=== PATIENT | female | born 1930 | race Caucasian/White ===

== ENCOUNTER 2016-12-25 11:25 | Observation (INO) ==
[2016-12-25] MEDS ORDERED: Aspirin 81 MG TAB.CHEW PO ONE (11:49)
--- NOTE | 2016-12-25 11:49 | Emergency Department Note ---
Disposition Clinical Impression: Atypical chest pain CHF (congestive heart failure) Qualifiers: Congestive heart failure type: unspecified congestive heart failure type Congestive heart failure chronicity: acute on chronic Qualified Code(s): I50.9 - Heart failure, unspecified Disposition: Admitted As Inpatient Condition: Good Time of Disposition: 13:00 Chest Pain HPI - General Chief Complaint: ED Chest Pain Stated Complaint: Chest pressure, ISAIAS Time Seen by Provider: 12/25/16 11:38 Source: patient Limitations: no limitations Vital Signs Reviewed: Yes Nursing Notes Reviewed: Yes - History of Present Illness HPI Narrative: Patient complaining of a one-month history of increasing shortness of breath and intermittent chest pain. She states it has gotten worse over the past 2 days. Shortness of breath is worsened whenever she ambulates. There are no alleviating factors. She describes the chest pain as a weight across the center of her chest Severity scale (1-10): 0 - Related Data Home Medications Medication Instructions Recorded Confirmed Amlodipine [Norvasc] 10 mg PO DAILY 12/25/16 12/25/16 Aspirin/Calcium Carbonate/Mag 325 mg PO DAILY 12/25/16 12/25/16 [Aspirin Buffered 325 mg Tab] Chlorthalidone 25 mg PO DAILY 12/25/16 12/25/16 Cholecalciferol (D-3) [Vitamin D] 1,000 unit PO DAILY 12/25/16 12/25/16 Citalopram [CeleXA] 20 mg PO DAILY 12/25/16 12/25/16 Cyanocobalamin (Vitamin B-12) 500 mcg PO DAILY 12/25/16 12/25/16 [Vitamin B-12] HydrALAZINE 25 mg PO BID 12/25/16 12/25/16 LORazepam [Ativan] 1 - 2 mg PO HS PRN 12/25/16 12/25/16 Losartan Potassium [Cozaar] 50 mg PO DAILY 12/25/16 12/25/16 Metoprolol XL (24 HR) Succ [Toprol 25 mg PO DAILY 12/25/16 12/25/16 XL] Allergies Allergy/AdvReac Type Severity Reaction Status Date / Time meperidine [From Demerol] Allergy Hives Verified 12/25/16 13:26 iodine AdvReac Nausea Verified 12/25/16 11:34 Review of Systems: Patient denies any fevers. She states she is normally chilly. She denies any recent illnesses. She reports shortness of breath with a nonproductive cough. She is also reporting a chest pressure. She states that this is been intermittent for the past 2 months but worse in the past 2 days. She has had a chest pressure constant since last night. She denies any vomiting or diarrhea but states she did get nauseated one time earlier this morning. She denies nausea at this time. The abdominal pain. She denies any constipation or trouble with urination. She denies any hematochezia melena or hematuria. She does report swelling in the bilateral lower extremities. This is been getting progressively worse over the last 3 weeks. All systems ED: reviewed and negative except as stated. Chest Pain PMH - Past Medical History Medical history: Reports: CHF, hypertension, other (Rheumatic fever.) Psychiatric history: Reports: anxiety - Social History Smoking Status: Never smoker Alcohol use: Reports: none Drug use: Reports: none Physical Exam - General Limitations: no limitations General appearance: alert, in no apparent distress - Head Head exam: atraumatic, normocephalic, normal inspection - Eye Eye exam: Present: normal appearance, PERRL, EOMI. Absent: scleral icterus - ENT ENT exam: normal exam, normal oropharynx, mucous membranes moist - Neck Neck exam: Present: normal inspection, full ROM, trachea midline - Chest Chest inspection: Present: normal inspection, symmetric chest wall rise - Respiratory Respiratory exam: Present: normal lung sounds bilaterally. Absent: respiratory distress, wheezes, stridor - Cardiovascular Cardiovascular exam: Present: regular rate, normal rhythm, systolic murmur ( Ejection murmur) - Abdominal Exam Abdominal exam: Present: soft, Non-Tender, normal bowel sounds. Absent: tenderness, distention, guarding, rebound, rigidity - Extremities Exam Extremities exam: Present: normal inspection, full ROM, normal capillary refill , pedal edema (To mid tibia.). Absent: tenderness - Back Exam Back exam: Present: normal inspection, full ROM. Absent: tenderness - Neurological Exam Neurological exam: Present: alert, oriented X3, normal gait - Psychiatric Psychiatric exam: Present: normal affect, normal mood - Skin Skin exam: Present: warm, dry, intact, normal color. Absent: rash Course Course Narrative: Female patient with a history of renal disease as well as CHF presenting to the emergency department with increasing shortness of breath over the past month. Increasing pedal and tibial edema over the past 3 weeks. Also chest pain that has been constant since last night. She describes it as a weight on her chest. She is unable to tell me the medication she takes for states she takes "a lot. " He does have a systolic murmur on evaluation. She states her last echo was "a long time ago." She does not go to the hospital frequently. We will do a chest x-ray and lab work on patient. I do believe she is fluid overloaded at this time. She states she is not short of breath while resting but is soon as she gets up and walks any distance she does get short of breath. - Reevaluation(s) Reevaluation #1: Discussed admission with patient. She is agreeable at this time. She is not been seen very frequently at the hospital. She just recently switched primary care physicians and is concerned about follow-up with diuresis. We will give patient 40 mg of Lasix IV while she is down here. Time: 12:58 Vital Signs Temperature 97.9 F 12/25/16 11:34 Pulse Rate 65 12/25/16 11:34 Respiratory Rate 16 12/25/16 11:34 Blood Pressure 169/70 12/25/16 11:34 O2 Sat by Pulse Oximetry 97 12/25/16 11:34 Temperature 98.2 F 12/25/16 13:46 Pulse Rate 74 12/25/16 13:46 Respiratory Rate 22 12/25/16 13:46 Blood Pressure 178/51 12/25/16 13:46 O2 Sat by Pulse Oximetry 95 12/25/16 13:46 Oxygen Delivery Oxygen Delivery Room Air Chest Pain - Medical Records Medical records reviewed: Yes I reviewed the patient's medical records. - Lab Data Lab results reviewed: Yes I reviewed the patient's lab results. Result diagrams: 12/25/16 12:05 12/25/16 12:05 Lab Results 12/25/16 12/25/16 12/25/16 Range/Units 12:05 12:05 12:05 WBC 8.8 (4.3-11.1) K/mcL RBC 3.24 L (3.82-4.97) M/mcL Hgb 9.5 L (11.5-15.4) g/dL Hct 31.0 L (35.3-44.9) % MCV 95.7 (83.0-100.0) fL MCH 29.3 (28.0-33.3) pg MCHC 30.6 L (31.6-35.5) g/dL RDW 14.2 (11.5-14.5) % Plt Count 163 (140-400) K/mcL MPV 11.4 (9.4-12.4) fL Immature Gran % 0.5 (0-4) % Seg Neutrophils % 75.0 % Lymphocytes % 10.2 % Monocytes % 14.0 % Eosinophils % 0.1 % Basophils % 0.2 % Neutrophils # 6.6 (1.6-8.9) K/mcL Lymphocytes # 0.9 (0.6-4.6) K/mcL Monocytes # 1.2 (0.0-1.3) K/mcL Eosinophils # 0.0 (0.0-0.6) K/mcL Basophils # 0.0 (0.0-0.2) K/mcL PT 12.1 (9.4-12.1) Seconds INR 1.1 APTT 29.2 (26.0-36.0) Seconds Sodium 138 (136-145) mEq/L Potassium 4.7 H (3.5-4.5) mEq/L Chloride 108 (98-109) mEq/L Carbon Dioxide 20 (19-29) mEq/L BUN 45 H (7-20) mg/dL Creatinine 1.60 H (0.57-1.11) mg/dL Est GFR ( Amer) 37 L (> 60) Est GFR (Non-Af Amer) 31 L (> 60) BUN/Creatinine Ratio 28 H (6-26) Glucose 104 H (70-99) mg/dL Calculated Osmolality 298 (280-300) Calcium 9.0 (8.6-10.8) mg/dL Total Bilirubin 0.5 (0.2-1.2) mg/dL Direct Bilirubin 0.2 (0.0-0.5) mg/dL Indirect Bilirubin 0.3 (0.0-1.2) mg/dL AST 25 (5-34) Units/L ALT 30 (0-55) Units/L Alkaline Phosphatase 50 (38-126) Units/L Troponin I (0-0.03) ng/mL B-Natriuretic Peptide (0-100) pg/mL Serum Total Protein 7.1 (6.0-8.3) g/dL Albumin 3.7 (3.5-5.0) g/dL Globulin 3.4 (2.4-3.5) g/dL Albumin/Globulin Ratio 1.1 (1.1-2.2) Lipase 43 (8-78) Units/L 12/25/16 12/25/16 Range/Units 12:05 12:05 WBC (4.3-11.1) K/mcL RBC (3.82-4.97) M/mcL Hgb (11.5-15.4) g/dL Hct (35.3-44.9) % MCV (83.0-100.0) fL MCH (28.0-33.3) pg MCHC (31.6-35.5) g/dL RDW (11.5-14.5) % Plt Count (140-400) K/mcL MPV (9.4-12.4) fL Immature Gran % (0-4) % Seg Neutrophils % % Lymphocytes % % Monocytes % % Eosinophils % % Basophils % % Neutrophils # (1.6-8.9) K/mcL Lymphocytes # (0.6-4.6) K/mcL Monocytes # (0.0-1.3) K/mcL Eosinophils # (0.0-0.6) K/mcL Basophils # (0.0-0.2) K/mcL PT (9.4-12.1) Seconds INR APTT (26.0-36.0) Seconds Sodium (136-145) mEq/L Potassium (3.5-4.5) mEq/L Chloride (98-109) mEq/L Carbon Dioxide (19-29) mEq/L BUN (7-20) mg/dL Creatinine (0.57-1.11) mg/dL Est GFR ( Amer) (> 60) Est GFR (Non-Af Amer) (> 60) BUN/Creatinine Ratio (6-26) Glucose (70-99) mg/dL Calculated Osmolality (280-300) Calcium (8.6-10.8) mg/dL Total Bilirubin (0.2-1.2) mg/dL Direct Bilirubin (0.0-0.5) mg/dL Indirect Bilirubin (0.0-1.2) mg/dL AST (5-34) Units/L ALT (0-55) Units/L Alkaline Phosphatase (38-126) Units/L Troponin I 0.00 (0-0.03) ng/mL B-Natriuretic Peptide 688 H (0-100) pg/mL Serum Total Protein (6.0-8.3) g/dL Albumin (3.5-5.0) g/dL Globulin (2.4-3.5) g/dL Albumin/Globulin Ratio (1.1-2.2) Lipase (8-78) Units/L - Radiology Data Radiology results reviewed: Yes I reviewed the patient's radiology results. Patient does appear mildly fluid overloaded. - EKG Data EKG attestation: Yes I reviewed and interpreted this EKG. EKG results narrative: Normal sinus rhythm at a rate of 72. FL interval is 162. Respirations 81. QT is 374. QTC is 399. There is no ST elevation or depression. There is no old EKG to compare to. Patient does have one premature atrial contraction.
--- NOTE | 2016-12-25 12:15 | Emergency Department Note ---
Disposition Clinical Impression: Atypical chest pain CHF (congestive heart failure) Qualifiers: Congestive heart failure type: unspecified congestive heart failure type Congestive heart failure chronicity: acute on chronic Qualified Code(s): I50.9 - Heart failure, unspecified Disposition: Admitted As Inpatient Condition: Fair General Adult HPI - General Chief complaint: ED Chest Pain Stated complaint: Chest pressure, ISAIAS Time Seen by Provider: 12/25/16 11:38 Source: patient Limitations: no limitations Nursing Notes Reviewed: Yes Vital Signs Reviewed: Yes - History of Present Illness Pain Scale: 0 - Related Data Home Medications Medication Instructions Recorded Confirmed Amlodipine [Norvasc] 10 mg PO DAILY 12/25/16 12/25/16 Aspirin/Calcium Carbonate/Mag 325 mg PO DAILY 12/25/16 12/25/16 [Aspirin Buffered 325 mg Tab] Chlorthalidone 25 mg PO DAILY 12/25/16 12/25/16 Cholecalciferol (D-3) [Vitamin D] 1,000 unit PO DAILY 12/25/16 12/25/16 Citalopram [CeleXA] 20 mg PO DAILY 12/25/16 12/25/16 Cyanocobalamin (Vitamin B-12) 500 mcg PO DAILY 12/25/16 12/25/16 [Vitamin B-12] HydrALAZINE 25 mg PO BID 12/25/16 12/25/16 LORazepam [Ativan] 1 - 2 mg PO HS PRN 12/25/16 12/25/16 Losartan Potassium [Cozaar] 50 mg PO DAILY 12/25/16 12/25/16 Metoprolol XL (24 HR) Succ [Toprol 25 mg PO DAILY 12/25/16 12/25/16 XL] Allergies Allergy/AdvReac Type Severity Reaction Status Date / Time meperidine [From Demerol] Allergy Hives Verified 12/25/16 13:26 iodine AdvReac Nausea Verified 12/25/16 11:34 Past Medical History - Past Medical History Medical history: Reports: CHF, hypertension Psychiatric history: Reports: anxiety - Social History Smoking Status: Never smoker Smokeless Tobacco Status: No Alcohol use: Reports: none Drug use: Reports: none Physical Exam - General Limitations: no limitations General appearance: alert, in no apparent distress Course Vital Signs Temperature 97.9 F 12/25/16 11:34 Pulse Rate 65 12/25/16 11:34 Respiratory Rate 16 12/25/16 11:34 Blood Pressure 169/70 12/25/16 11:34 O2 Sat by Pulse Oximetry 97 12/25/16 11:34 Temperature 98.2 F 12/25/16 13:46 Pulse Rate 74 12/25/16 13:46 Respiratory Rate 22 12/25/16 13:46 Blood Pressure 178/51 12/25/16 13:46 O2 Sat by Pulse Oximetry 95 12/25/16 13:46 Oxygen Delivery Oxygen Delivery Room Air Medical Decision Making - MDM Narrative Medical decision making narrative: I examined this patient and my medical decision-making was reviewed with the BENCH SCIENTIST/PA/Advanced Practice Nurse/Resident Physician. I agree with the documented findings, disposition and treatment plan as described except to the extent set forth below. Patient was seen on arrival by Dr. Yee and myself, I agree with her evaluation and management plan, supervised the care of the patient will state. Patient comes in today with increasing dyspnea. She said she has not really had chest pain. She says she has a history of CHF and she thinks it is probably what is causing this. She has had some edema in her lower extremities. She denies any weight gain at this time. She since been worse at night and with exertion. Benadryl workup on her EKG cardiac workup and reassess. She may need admission. She is in agreement with this plan. 1255 hrs.: Patient agrees to stay in the hospital. She does not come to the hospital very often. She is to switch physicians. She is having dyspnea with exertion with some chest pressure. Minimal when she is at rest. We will speak with the hospitalist. She is in agreement with this plan as is her family. - Lab Data Result diagrams: 12/25/16 12:05 12/25/16 12:05 Lab Results 12/25/16 12/25/16 12/25/16 Range/Units 12:05 12:05 12:05 WBC 8.8 (4.3-11.1) K/mcL RBC 3.24 L (3.82-4.97) M/mcL Hgb 9.5 L (11.5-15.4) g/dL Hct 31.0 L (35.3-44.9) % MCV 95.7 (83.0-100.0) fL MCH 29.3 (28.0-33.3) pg MCHC 30.6 L (31.6-35.5) g/dL RDW 14.2 (11.5-14.5) % Plt Count 163 (140-400) K/mcL MPV 11.4 (9.4-12.4) fL Immature Gran % 0.5 (0-4) % Seg Neutrophils % 75.0 % Lymphocytes % 10.2 % Monocytes % 14.0 % Eosinophils % 0.1 % Basophils % 0.2 % Neutrophils # 6.6 (1.6-8.9) K/mcL Lymphocytes # 0.9 (0.6-4.6) K/mcL Monocytes # 1.2 (0.0-1.3) K/mcL Eosinophils # 0.0 (0.0-0.6) K/mcL Basophils # 0.0 (0.0-0.2) K/mcL PT 12.1 (9.4-12.1) Seconds INR 1.1 APTT 29.2 (26.0-36.0) Seconds Sodium 138 (136-145) mEq/L Potassium 4.7 H (3.5-4.5) mEq/L Chloride 108 (98-109) mEq/L Carbon Dioxide 20 (19-29) mEq/L BUN 45 H (7-20) mg/dL Creatinine 1.60 H (0.57-1.11) mg/dL Est GFR ( Amer) 37 L (> 60) Est GFR (Non-Af Amer) 31 L (> 60) BUN/Creatinine Ratio 28 H (6-26) Glucose 104 H (70-99) mg/dL Calculated Osmolality 298 (280-300) Calcium 9.0 (8.6-10.8) mg/dL Total Bilirubin 0.5 (0.2-1.2) mg/dL Direct Bilirubin 0.2 (0.0-0.5) mg/dL Indirect Bilirubin 0.3 (0.0-1.2) mg/dL AST 25 (5-34) Units/L ALT 30 (0-55) Units/L Alkaline Phosphatase 50 (38-126) Units/L Troponin I (0-0.03) ng/mL B-Natriuretic Peptide (0-100) pg/mL Serum Total Protein 7.1 (6.0-8.3) g/dL Albumin 3.7 (3.5-5.0) g/dL Globulin 3.4 (2.4-3.5) g/dL Albumin/Globulin Ratio 1.1 (1.1-2.2) Lipase 43 (8-78) Units/L 12/25/16 12/25/16 Range/Units 12:05 12:05 WBC (4.3-11.1) K/mcL RBC (3.82-4.97) M/mcL Hgb (11.5-15.4) g/dL Hct (35.3-44.9) % MCV (83.0-100.0) fL MCH (28.0-33.3) pg MCHC (31.6-35.5) g/dL RDW (11.5-14.5) % Plt Count (140-400) K/mcL MPV (9.4-12.4) fL Immature Gran % (0-4) % Seg Neutrophils % % Lymphocytes % % Monocytes % % Eosinophils % % Basophils % % Neutrophils # (1.6-8.9) K/mcL Lymphocytes # (0.6-4.6) K/mcL Monocytes # (0.0-1.3) K/mcL Eosinophils # (0.0-0.6) K/mcL Basophils # (0.0-0.2) K/mcL PT (9.4-12.1) Seconds INR APTT (26.0-36.0) Seconds Sodium (136-145) mEq/L Potassium (3.5-4.5) mEq/L Chloride (98-109) mEq/L Carbon Dioxide (19-29) mEq/L BUN (7-20) mg/dL Creatinine (0.57-1.11) mg/dL Est GFR ( Amer) (> 60) Est GFR (Non-Af Amer) (> 60) BUN/Creatinine Ratio (6-26) Glucose (70-99) mg/dL Calculated Osmolality (280-300) Calcium (8.6-10.8) mg/dL Total Bilirubin (0.2-1.2) mg/dL Direct Bilirubin (0.0-0.5) mg/dL Indirect Bilirubin (0.0-1.2) mg/dL AST (5-34) Units/L ALT (0-55) Units/L Alkaline Phosphatase (38-126) Units/L Troponin I 0.00 (0-0.03) ng/mL B-Natriuretic Peptide 688 H (0-100) pg/mL Serum Total Protein (6.0-8.3) g/dL Albumin (3.5-5.0) g/dL Globulin (2.4-3.5) g/dL Albumin/Globulin Ratio (1.1-2.2) Lipase (8-78) Units/L
[2016-12-25 12:17] LABS: Basophils % 0.2 %; Eosinophils % 0.1 %; Hemoglobin 9.5 g/dL (11.5-15.4); Immature Granulocytes % 0.5 % (0-4); Lymphocytes # 0.9 K/mcL (0.6-4.6); Lymphocytes % 10.2 %; Mean Corpuscular HGB Conc 30.6 g/dL (31.6-35.5); Mean Corpuscular Hemoglobin 29.3 pg (28.0-33.3); Mean Corpuscular Volume 95.7 fL (83.0-100.0); Mean Platelet Volume 11.4 fL (9.4-12.4); Monocytes # 1.2 K/mcL (0.0-1.3); Neutrophils # 6.6 K/mcL (1.6-8.9); Platelet Count 163 K/mcL (140-400); Red Blood Count 3.24 M/mcL (3.82-4.97); Red Cell Distribution Width 14.2 % (11.5-14.5)
[2016-12-25 12:25] LABS: INR 1.1; Prothrombin Time 12.1 Seconds (9.4-12.1)
[2016-12-25 12:28] LABS: Activated Partial Thrombo Time 29.2 Seconds (26.0-36.0)
[2016-12-25 12:35] LABS: Albumin 3.7 g/dL (3.5-5.0); Albumin/Globulin Ratio 1.1 (1.1-2.2); Bilirubin,Direct 0.2 mg/dL (0.0-0.5); Bilirubin,Indirect 0.3 mg/dL (0.0-1.2); Bilirubin,Total 0.5 mg/dL (0.2-1.2); Globulin 3.4 g/dL (2.4-3.5); Potassium 4.7 mEq/L (3.5-4.5); Total Protein 7.1 g/dL (6.0-8.3)
[2016-12-25] MEDS ORDERED: Furosemide 40 MG/4 ML VIAL IVP ONE (12:55)
[2016-12-25] MEDS ORDERED: Acetaminophen 325 MG TABLET PO PRN (13:41)
[2016-12-25] MEDS ORDERED: Ondansetron 4 MG/2 ML VIAL IVP PRN (13:41)
[2016-12-25] MEDS ORDERED: Naloxone 0.4 MG/ML INJ IVP PRN (13:41)
[2016-12-25] MEDS ORDERED: *HR* LORazepam 1 MG TABLET PO PRN (13:48)
[2016-12-25] MEDS ORDERED: Aspirin Enteric Coated 325 MG Tablet PO SCH (14:00)
--- NOTE | 2016-12-25 14:05 | Internal Med History&Physical ---
Date of Encounter: 12/25/16 Time of Encounter: 13:30 Assessment and Plan (1) CHF (congestive heart failure) Current visit: Yes Status: Acute 1 patient has history of congestive heart failure unsure of EF. Will obtain cardiac echo. 2 we will continue with Lasix 3 Will monitor intake and output-place on fluid restriction 1500 mL 4 daily weights 5 low sodium diet 6 consulted cardiology Qualifiers: Congestive heart failure type: unspecified congestive heart failure type Congestive heart failure chronicity: acute on chronic Qualified Code(s): I50.9 - Heart failure, unspecified (2) Hypertension Current visit: Yes Status: Acute 1 she has been having issues with elevated blood pressure. We will continue with hydralazine and Lopressor will hold losartan for now due to elevated potassium 4.7 and slight increase in creatinine continue with IV Lasix 2 continue to monitor potassium/creatinine 3 low sodium diet Qualifiers: Hypertension type: essential hypertension Qualified Code(s): I10 - Essential (primary) hypertension (3) CKD (chronic kidney disease) stage 3, GFR 30-59 ml/min Current visit: Yes Status: Acute 1 she has history of CK D stage III present creatinine 1.6 previous creatinine was 1.5 we will continue to monitor 2 avoid nephrotoxins- will hold losartan for now dt slight increase in creatinine- resume once back to baseline 3 monitor intake and output 4 monitor daily weights (4) DVT prophylaxis Current visit: Yes Status: Acute 1 lovenox renal dose (5) Chest pain Current visit: Yes Status: Acute 1 first set of cardiac enzymes are negative we will continue to cycle troponin 2 we will obtain cardiac echo 3 consulted cardiology 4 nitroglycerin oxygen as needed for chest pain Qualifiers: Chest pain type: chest pain on breathing Qualified Code(s): R07.1 - Chest pain on breathing Internal Medicine - H&P: HPI Chief complaint: SOB Admitted From: Emergency Dept Plans for Post Hospital Care: Home History of present illness: Ms. Byrne is a 85 year old female past history of CK D stage III hypertension congestive heart failure. According to patient she has been experiencing increasing shortness of breath on exertion nonproductive cough and lower extremity edema for approximately 3 weeks. She does admit to some weight gain over this time, however she does not know how much. This week the patient has been experiencing 2/10 midsternal chest heaviness which is exacerbated by exertion and relieved with rest as well as increasing shortness of breath on exertion. She has been having difficulty sleeping at night and wakes up short of breath. She is also been experiencing some nausea, however denies any fevers chills vomiting diarrhea abdominal pain. She has a history of hypertension as well as congestive heart failure and states she has been compliant with her medications. She presented to the emergency room for evaluation. According to emergency room records chest x-ray revealed mild interstitial edema with a tracing effusion there was no leukocytosis chemistry unremarkable troponin was negative BNP 688. She was given IV Lasix as well as aspirin and has been admitted for further workup and evaluation. Presently the patient denies any chest pain or shortness of breath at this time does not appear to be in any respiratory distress she does have +1 pitting edema bilaterally lower extremities upon auscultation of lungs she has crackles bilaterally. At this time she is hemodynamically stable. Reviewed this case with Dr Teresa who agrees with plan Past Med Surg Social Fam HX - Past Medical History Medical history: CHF, hypertension, other Psychiatric history: anxiety - Social History Smoking Status: Never smoker Smokeless Tobacco Status: No Alcohol use: none Drug use: none - Family History Mother Living Status: Age at : 33 Father Living Status: Hx Family Cancer: Yes (stomach) Internal Medicine - H&P: Meds Amlodipine [Norvasc] 10 mg PO DAILY 12/25/16 [History] Aspirin/Calcium Carbonate/Mag [Aspirin Buffered 325 mg Tab] 325 mg PO DAILY [History] Chlorthalidone 25 mg PO DAILY 12/25/16 [History] Cholecalciferol (D-3) [Vitamin D] 1,000 unit PO DAILY 12/25/16 [History] Citalopram [CeleXA] 20 mg PO DAILY 12/25/16 [History] Cyanocobalamin (Vitamin B-12) [Vitamin B-12] 500 mcg PO DAILY 12/25/16 [History] HydrALAZINE 25 mg PO BID 12/25/16 [History] LORazepam [Ativan] 1 - 2 mg PO HS PRN 12/25/16 [History] Losartan Potassium [Cozaar] 50 mg PO DAILY 12/25/16 [History] Metoprolol XL (24 HR) Succ [Toprol XL] 25 mg PO DAILY 12/25/16 [History] Allergies meperidine [From Demerol] Allergy (Verified 12/25/16 13:26) Hives iodine Adverse Reaction (Verified 12/25/16 11:34) Nausea All Systems PM: A 10-system review of systems was performed and is negative for pertinent findings except as documented above in the HPI. - Constitutional Constitutional: weight gain - Cardiovascular Cardiovascular ROS IM: dyspnea on exertion, edema - Respiratory Respiratory: cough, dyspnea on exertion - Gastrointestinal Gastrointestinal: nausea, no abdominal pain, no diarrhea, no hematemesis, no hematochezia, no melena, no vomiting - Musculoskeletal Musculoskeletal ROS IM: no numbness, no tingling - Neurological Neurological ROS: no confusion, no convulsions, no focal weakness, no numbness, no tingling, no tremor(s) - Hematologic/Lymphatic Hematologic/Lymphatic: no easy bruising - Constitutional Vitals: Temp Pulse Resp BP Pulse Ox 98.2 F 74 22 178/51 95 12/25/16 13:46 12/25/16 13:46 12/25/16 13:46 12/25/16 13:46 12/25/16 13:46 General appearance: Present: answers questions appropriately - Head Head exam: Present: atraumatic, normocephalic - Eye Eye exam: Present: PERRL, conjuntiva pink, sclera anicteric Pupils: Present: PERRL - Respiratory Respiratory exam: Present: rales. Absent: accessory muscle use, rhonchi, wheezes - Cardiovascular Cardiovascular exam: Present: RRR, +S1, +S2, systolic murmur. Absent: diastolic murmur, gallop, rubs - GI/Abdominal GI/Abdominal exam: Present: normal bowel sounds, soft, no peritoneal signs. Absent: distended, tenderness - Extremities Exam Extremities exam: Present: pedal edema, warm, radial pulses palpable and symetrical. Absent: calf tenderness, cyanotic - Neurological Exam Neurological exam: Present: CN II-XII intact, oriented X3, no focal deficits. Absent: pronater drift, facial droop, speech deficit - Skin Skin exam: Present: dry, intact Internal Med - H&P Results - Labs CBC & Chem 7: 12/25/16 12:05 12/25/16 12:05 - EKG Data EKG shows normal: sinus rhythm - EKG Data Prior EKG available for review: no - Diagnostic Studies Chest x-ray Additional comments: Per radiology read mild interstitial edema with trace effusions
[2016-12-25] MEDS ORDERED: Nitroglycerin 0.4 MG TAB.SUBL SL PRN (14:36)
[2016-12-25] MEDS: amLODIPine 5 MG TABLET PO SCH (15:29)
[2016-12-25] MEDS: Metoprolol XL (24 HR) Succ 25 MG TAB.ER.24H PO SCH (15:29)
--- NOTE | 2016-12-25 15:34 | Cardiology Consult Note ---
<Randall Uribe - Last Filed: 12/25/16 15:30> Date of Encounter: 12/25/16 Time of Encounter: 15:30 Assessment and Plan (1) Acute decompensated heart failure Current Visit: Yes Status: Acute IV lasix 40 mg BID Echo pending EKG without acute ischemia noted Monitor SCr and GFR Continue home medications (2) CKD (chronic kidney disease) stage 3, GFR 30-59 ml/min Current Visit: Yes Status: Chronic Hx of Stage 3 CKD. Primary team management (3) DVT prophylaxis Current Visit: Yes Status: Acute lovenox renal dose (4) Hypertension Current Visit: Yes Status: Chronic Continue home medications Expected better control of hypertension once better diuresis Qualifiers: Hypertension type: essential hypertension Qualified Code(s): I10 - Essential (primary) hypertension Discussion w patient/family: The assessment and plan as outlined above was discussed with the patient and/or family members who expressed understanding and agreement. All questions were answered. Thank you for involving us in the care of your patient. Please call with any questions. History of Present Illness Consult date: 12/25/16 Requesting physician: Leyla Aguilar Consult reason: Acute decompensation of CHF Chief complaint: Dyspnea, Chest pressure on exertion History of present illness: Ms. Byrne is a 85 year old female with history of CHF, HTN, HLD, arrived to [facility] ED this AM complaining of worsening dyspnea on exertion and chest pressure x 2 weeks. She states that over the last 2 days it has acutely worsened. The patient denies any previous MT or CAD. Her last echo was "years ago", and she states that she does not regularly follow a media monitor. The patient does have stage 3 kidney disease and history of rheumatic disease. She admits to orthopnea and pedal edema. Denies any other complaint. Troponin and EKG demonstrate no acute ischemia. The patient's chest xray demonstrated increased vascular markings. Past Med Surg Social Fam HX - Past Medical History Attestation: Yes The following information was validated with the patient. Source: patient, old records reviewed Medical history: CHF, hypertension, other Psychiatric history: anxiety - Past Surgical History Surgical History: non-contributory - Social History Smoking Status: Never smoker Smokeless Tobacco Status: No Alcohol use: none Drug use: none - Family History Mother Living Status: Age at : 33 Father Living Status: Hx Family Cancer: Yes (stomach) Medications and Allergies Amlodipine [Norvasc] 10 mg PO DAILY 12/25/16 [History] Aspirin/Calcium Carbonate/Mag [Aspirin Buffered 325 mg Tab] 325 mg PO DAILY [History] Chlorthalidone 25 mg PO DAILY 12/25/16 [History] Cholecalciferol (D-3) [Vitamin D] 1,000 unit PO DAILY 12/25/16 [History] Citalopram [CeleXA] 20 mg PO DAILY 12/25/16 [History] Cyanocobalamin (Vitamin B-12) [Vitamin B-12] 500 mcg PO DAILY 12/25/16 [History] HydrALAZINE 25 mg PO BID 12/25/16 [History] LORazepam [Ativan] 1 - 2 mg PO HS PRN 12/25/16 [History] Losartan Potassium [Cozaar] 50 mg PO DAILY 12/25/16 [History] Metoprolol XL (24 HR) Succ [Toprol XL] 25 mg PO DAILY 12/25/16 [History] Allergies meperidine [From Demerol] Allergy (Verified 12/25/16 13:26) Hives iodine Adverse Reaction (Verified 12/25/16 11:34) Nausea All Systems Review: A 10-system review of systems was performed and is negative for pertinent findings except as documented above in the HPI. - Constitutional Constitutional: fatigue, weakness, weight gain - Cardiovascular Cardiovascular: chest pain with exertion, dyspnea on exertion, leg edema Physical Examination Vital Signs, Last 4 Hours Temp Pulse Resp BP Pulse Ox 12/25/16 13:46 98.2 F 74 22 178/51 95 12/25/16 13:35 17 159/69 General: Conversant, No Apparent Distress HEENT: Atraumatic, Normocephaly, Mucus Membranes Moist Neck: Other (Mild JVD) Cardiac: Reg Rate and Rhythm, Other (Grade 2 systolic murmur over pulmonic region ) Lungs: Other (Coarse breath sounds without wheezing) Neuro: Alert and responsive, No focal deficits noted Abdomen: Soft, Non-Tender Skin: No rashes noted on visualized skin Musculoskeletal: No Chest Wall Tenderness Extremities: No Clubbing, No Cyanosis, Other (1-2+ pitting edema bilaterally) Results 12/25/16 12:05 12/25/16 12:05 - Imaging and Cardiology Chest Xray: report reviewed, image reviewed Echo: pending - EKG Interpretation EKG results cardiology: personally reviewed, sinus rhythm, no diagnostic ischemia Consult Discharge Plan - Plan Referrals: Prisca Weber, HEM[employer] LOCKSTITCH [Primary Care Provider] - - Attending Attestation I examined this patient and my medical decision-making was reviewed with the Resident Physician. I agree with the documented findings, disposition and treatment plan as described except to the extent set forth below. <Madan Yuan G - Last Filed: 12/25/16 15:45> Date of Encounter: 12/25/16 Assessment and Plan Discussion w patient/family: The assessment and plan as outlined above was discussed with the patient and/or family members who expressed understanding and agreement. All questions were answered. Thank you for involving us in the care of your patient. Please call with any questions. History of Present Illness History of present illness: Ms. Byrne is a 85 year old female All Systems Review: A 10-system review of systems was performed and is negative for pertinent findings except as documented above in the HPI. Physical Examination Vital Signs, Last 4 Hours Temp Pulse Resp BP Pulse Ox 12/25/16 15:37 97.9 F 64 16 136/61 95 12/25/16 13:46 98.2 F 74 22 178/51 95 12/25/16 13:35 17 159/69 Results 12/25/16 12:05 12/25/16 12:05 - Attending Attestation Pt has a history of Rheumatic fever, now here for [place], no real CP , has some PND, no palpitations VSS JVD: 6-7 m Chest : clear CVS:: RRR ESM at base and pulmonic area, no changes with resp non radiating ? s3 CXR: increased central pulmonary markings BNP elevated EKG: no acute changes plan: a/w diuresis trend renal function echo trend cardiac enzymes Thanks!
[2016-12-25] MEDS: Furosemide 40 MG/4 ML VIAL IVP SCH (16:59)
[2016-12-25] MEDS: hydrALAZINE 25 MG TABLET PO SCH (21:16)
[2016-12-26 00:47] LABS: Basophils % 0.1 %; Eosinophils % 0.1 %; Hemoglobin 8.9 g/dL (11.5-15.4); Immature Granulocytes % 0.4 % (0-4); Immature Platelets 7.8 % (1.1-6.1); Lymphocytes # 1.2 K/mcL (0.6-4.6); Lymphocytes % 16.1 %; Mean Corpuscular HGB Conc 31.8 g/dL (31.6-35.5); Mean Corpuscular Hemoglobin 29.9 pg (28.0-33.3); Mean Platelet Volume 11.7 fL (9.4-12.4); Monocytes # 1.2 K/mcL (0.0-1.3); Monocytes % 15.6 %; Neutrophils # 5.1 K/mcL (1.6-8.9); Platelet Count 161 K/mcL (140-400); Red Blood Count 2.98 M/mcL (3.82-4.97); Red Cell Distribution Width 14.2 % (11.5-14.5); Segmented Neutrophils % 67.7 %
[2016-12-26 01:04] LABS: Calcium 8.7 mg/dL (8.6-10.8); Chol/HDL Ratio 4.3 (0-4.9); Magnesium 2.1 mg/dL (1.6-2.6); Potassium 4.1 mEq/L (3.5-4.5)
[2016-12-26] MEDS: Furosemide 40 MG/4 ML VIAL IVP SCH (07:09)
[2016-12-26] MEDS: *HR* Enoxaparin 30 MG/0.3 ML SYRINGE SQ SCH (07:09)
--- NOTE | 2016-12-26 08:08 | ECHO - Doppler Report ---
Echocardiogram Name: Micaela Byrne Date of Study: 12/25/2016 Date: 1930 Ht: 60.0 in Medical Record#: [id number] Age: 85 Wt: 120.0 lb Gender: Female BSA: 1.5 Order #: [id number] Location: [facility] Room #: 2A25 Reading Physician: Nael Dubon MD, [facility] Diesel Machinist: Amy Magaña Ordering Physician: Leyla Aguilar CNP Primary Physician: Prisca Weber CNP Indications: Shortness of breath Impressions: Normal left ventricular systolic function, LVEF 60-65%. Moderate left ventricular diastolic dysfunction. Normal right ventricular size and function. Mild-moderately dilated left atrium. Moderately calcified aortic valve leaflets. Valve morphology not well visualized. Mild aortic stenosis. Mild mitral regurgitation. Mild tricuspid regurgitation. Moderate pulmonary hypertension. Estimated RVSP = 52 mmHg. Left Ventricular Wall Motion: Rest Echo Findings All wall segments showed normal motion. Findings: Study Quality * Technically adequate exam. ECG Findings * Normal sinus rhythm. Left Ventricle * Normal left ventricular systolic function, LVEF 60-65%. * Normal LV chamber size and wall thickness. * Moderate left ventricular diastolic dysfunction. Right Ventricle * Normal right ventricular size and function. Left Atrium * Mild-moderately dilated left atrium. Right Atrium * Normal right atrial size. Aorta * Normally sized aortic root. Pericardium * There is no pericardial effusion present. IVC * Normal IVC dimensions and inspiratory collapse. Aortic Valve * Moderately calcified aortic valve leaflets. Valve morphology not well visualized. * Mild aortic stenosis. * Trace aortic regurgitation. Mitral Valve * Mild mitral annular calcification * No mitral stenosis. * Mild mitral regurgitation. Tricuspid Valve * Normal tricuspid valve structure. * No tricuspid stenosis. * Mild tricuspid regurgitation. * Moderate pulmonary hypertension. Estimated RVSP = 52 mmHg. Pulmonic Valve * Pulmonic valve not well visualized. * No pulmonic stenosis. * Trace pulmonic regurgitation. History Hypertension Rheumatic Fever Congestive Heart Failure Measurements: BP: 136/ 61 2D Normal Values RVIDd: 2.50 cm IVSd: 1.00 cm 0.6 - 1.0 cm LVIDd: 4.50 cm 3.7 - 5.6 cm LVPWd: 1.00 cm 0.6 - 1.1 cm LVIDs: 2.80 cm 1.5 - 3.6 cm AO: 2.80 cm < 4.0 cm %FS: 37.80 cm >25 % LVOT Diam: 2.00 cm LA volume: 57 Mitral Valve Peak E:1.07 m/sec Peak A:.63 m/sec E/A Ratio:1.7 Peak E' Lat Juan David:7.41 cm/s Peak E' Med Juan David:7.12 cm/s E/E' Lat Ratio:14.4 E/E' Med Ratio:15 Aortic Valve Peak Juan David:2.66 m/sec Peak Grad:28.00 mmHg Mean Grad:14.00 mmHg Valve Area:1.72 cm2 Tricuspid Valve TV Regurg Peak Grad: 49.00mmHg TV Regurg Peak Juan David: 3.49m/sec Updated by Nael Dubon MD, [facility] on 12/26/2016 8:03:50 AM electronically signed on 12/26/2016 8:05:05 AM with status of Final Wall Motion Fuentes: 1=Normal, 2=Hypokinesis, 3=Akinesis, 4=Dyskinesis, 5=Aneurysmal, 6=Hyperkinetic, X=Not Visualized (Blank)=Missing
[2016-12-26] MEDS: Metoprolol XL (24 HR) Succ 25 MG TAB.ER.24H PO SCH (08:24)
[2016-12-26] MEDS: amLODIPine 5 MG TABLET PO SCH (08:24)
[2016-12-26] MEDS: Cyanocobalamin (B-12) 1,000 MCG TABLET PO SCH (08:24)
[2016-12-26] MEDS: hydrALAZINE 25 MG TABLET PO SCH ×2 (08:24→20:25)
[2016-12-26] MEDS: Cholecalciferol (D-3) 1,000 UNIT TABLET PO SCH (08:24)
[2016-12-26] MEDS: Aspirin Enteric Coated 325 MG Tablet PO SCH (08:24)
[2016-12-26] MEDS ORDERED: Furosemide 40 MG/4 ML VIAL IVP SCH (09:00)
--- NOTE | 2016-12-26 09:13 | Cardiology Progress Note ---
<Randall Uribe - Last Filed: 12/26/16 11:06> Date of Encounter: 12/26/16 Time of Encounter: 09:10 Assessment and Plan (1) Acute decompensated heart failure Current Visit: Yes Status: Acute Continue IV lasix 40 mg, likely switch to PO lasix this afternoon Echo revealed normal EF with mild valvular dysfunction, moderate diastolic dysfunction with pulmonary hypertension EKG without acute ischemia noted Continue to Monitor SCr and GFR Continue home medications (2) CKD (chronic kidney disease) stage 3, GFR 30-59 ml/min Current Visit: Yes Status: Chronic Hx of Stage 3 CKD. Primary team management (3) DVT prophylaxis Current Visit: Yes Status: Acute lovenox renal dose (4) Hypertension Current Visit: Yes Status: Chronic Continue home medications Expected better control of hypertension once better diuresis Qualifiers: Hypertension type: essential hypertension Qualified Code(s): I10 - Essential (primary) hypertension Discussion w patient/family: The assessment and plan as outlined above was discussed with the patient and/or family members who expressed understanding and agreement. All questions were answered. Thank you for involving us in the care of your patient. Please call with any questions. Subjective Principal diagnosis: Acute decompensated heart failure Interval history: Patient states she feels much better. The patient is urinating accordingly to her diuresis. He renal function is slightly worsened but expected given the diuresis. The patient's pedal edema has improved. Objective Vital Signs, Last 4 Hours Temp Pulse Resp BP Pulse Ox 12/26/16 07:30 98.0 F 65 16 133/67 95 General: Conversant, No Apparent Distress HEENT: Atraumatic, Normocephaly, Mucus Membranes Moist Neck: No JVD Cardiac: Reg Rate and Rhythm, Normal S1 and S2, Other (grade 2 systolic murmur) Lungs: Other (Coarse breath sounds, improved from previous exam) Neuro: Alert and responsive, No focal deficits noted Abdomen: Soft, Non-Tender Skin: No rashes noted on visualized skin Musculoskeletal: No Chest Wall Tenderness Extremities: No Clubbing, No Cyanosis, Other (trace to 1+ pitting edema) Results 12/26/16 00:18 12/26/16 00:18 Lab Results 12/25/16 12/26/16 12/26/16 19:08 00:18 00:18 WBC 7.5 Hgb 8.9 L Hct 28.0 L Plt Count 161 Sodium Potassium Chloride Carbon Dioxide BUN Creatinine Glucose Calcium Magnesium Troponin I 0.01 0.00 12/26/16 00:18 WBC Hgb Hct Plt Count Sodium 139 Potassium 4.1 Chloride 106 Carbon Dioxide 25 BUN 44 H Creatinine 1.74 H Glucose 114 H Calcium 8.7 Magnesium 2.1 Troponin I - Imaging and Cardiology Echo: report reviewed Consult Discharge Plan - Plan Referrals: Prisca Weber, ADJUNCT LECTURER [Primary Care Provider] - 01/03/17 1:00 pm (Requested ) - Attending Attestation I examined this patient and my medical decision-making was reviewed with the Resident Physician. I agree with the documented findings, disposition and treatment plan as described except to the extent set forth below. <Madan Yuan - Last Filed: 12/26/16 11:50> Date of Encounter: 12/26/16 Assessment and Plan Discussion w patient/family: The assessment and plan as outlined above was discussed with the patient and/or family members who expressed understanding and agreement. All questions were answered. Thank you for involving us in the care of your patient. Please call with any questions. Objective Vital Signs, Last 4 Hours Pulse Ox 12/26/16 08:30 95 Results 12/26/16 00:18 12/26/16 00:18 Lab Results 12/25/16 12/26/16 12/26/16 19:08 00:18 00:18 WBC 7.5 Hgb 8.9 L Hct 28.0 L Plt Count 161 Sodium Potassium Chloride Carbon Dioxide BUN Creatinine Glucose Calcium Magnesium Troponin I 0.01 0.00 12/26/16 00:18 WBC Hgb Hct Plt Count Sodium 139 Potassium 4.1 Chloride 106 Carbon Dioxide 25 BUN 44 H Creatinine 1.74 H Glucose 114 H Calcium 8.7 Magnesium 2.1 Troponin I Attestation Statement - Attestation Attestation: I examined this patient and my medical decision-making was reviewed with the BARRATTE OPERATOR/PA/Advanced Practice Nurse/Resident Physician. I agree with the documented findings, disposition and treatment plan as described except to the extent set forth below. Pt less sob, able to lie flat. VSS JVD: 6.7 cm Chest Clear CVS: ESM at base, no changes with resp , non radiating plan; see resident note for detail a/w switch to po lasix consider PT OT
[2016-12-26] MEDS: Furosemide 40 MG TABLET PO SCH (17:11)
--- NOTE | 2016-12-26 18:50 | Internal Med Progress Note ---
<Gregory De La Torre - Last Filed: 12/26/16 18:47> Date of Encounter: 12/26/16 Time of Encounter: 09:00 - Assessment and plan (1) Acute decompensated heart failure Current Visit: Yes Status: Acute Assessment and plan: Significant improvement presumably from diuresis Continue IV Lasix Continue fluid restriction continue to monitor kidney function Appreciate cardiology recommendations, will follow (2) CKD (chronic kidney disease) stage 3, GFR 30-59 ml/min Current Visit: Yes Status: Chronic Assessment and plan: Continue to monitor (3) Hypertension Current Visit: Yes Status: Chronic Assessment and plan: Blood pressure control has been good Continue home medications Qualifiers: Hypertension type: essential hypertension Qualified Code(s): I10 - Essential (primary) hypertension (4) DVT prophylaxis Current Visit: Yes Status: Acute Assessment and plan: Continue renal adjusted dose of Lovenox - Subjective Interval history: Mrs. Byrne was seen and examined at bedside. She was sitting up comfortably in bed in no apparent distress. She states that her breathing has improved significantly since being admitted to the hospital and her cough has resolved she denies chest pain,, abdominal pain or any new complaints - Constitutional Vitals: Temp Pulse Resp BP Pulse Ox 97.9 F 70 16 135/59 95 12/26/16 16:20 12/26/16 16:20 12/26/16 16:20 12/26/16 16:20 12/26/16 16:20 General appearance: Present: answers questions appropriately - Head Head exam: Present: atraumatic, normocephalic - Eye Eye exam: Present: PERRL, conjuntiva pink, sclera anicteric Pupils: Present: PERRL - Neck Neck exam general surgery: Present: supple, trachea midline. Absent: lymphadenopathy - Respiratory Respiratory exam: Present: CTAB. Absent: accessory muscle use, rales, rhonchi, wheezes - Cardiovascular Cardiovascular exam: Present: RRR, +S1, +S2. Absent: diastolic murmur, gallop, rubs, systolic murmur - GI/Abdominal GI/Abdominal exam: Present: normal bowel sounds, soft, no peritoneal signs. Absent: distended, tenderness - Extremities Exam Extremities exam: Present: warm, radial pulses palpable and symetrical. Absent : calf tenderness, cyanotic, pedal edema - Neurological Exam Neurological exam: Present: CN II-XII intact, oriented X3, no focal deficits. Absent: pronater drift, facial droop, speech deficit - Skin Skin exam: Present: dry, intact Internal Medicine: Result - Labs CBC & Chem 7: 12/26/16 00:18 12/26/16 00:18 Labs: Short CBC 12/26/16 Range/Units 00:18 WBC 7.5 (4.3-11.1) K/mcL Hgb 8.9 L (11.5-15.4) g/dL Hct 28.0 L (35.3-44.9) % Plt Count 161 (140-400) K/mcL Neutrophils # 5.1 (1.6-8.9) K/mcL BMP 12/26/16 00:18 Sodium 139 Potassium 4.1 Chloride 106 Carbon Dioxide 25 BUN 44 H Creatinine 1.74 H Glucose 114 H Calcium 8.7 Cardiac Enzymes 12/25/16 12/26/16 Range/Units 19:08 00:18 Troponin I 0.01 0.00 (0-0.03) ng/mL - ABG Interpretation ABG results: PT/INR, D-dimer PT 12.1 Seconds (9.4-12.1) 12/25/16 12:05 Consult Discharge Plan - Plan Referrals: Prisca Weber, [employer]ATION [Primary Care Provider] - 01/03/17 1:00 pm (Requested ) <Robby Reyes - Last Filed: 12/27/16 08:14> Date of Encounter: 12/27/16 - Constitutional Vitals: Temp Pulse Resp BP Pulse Ox 97.7 F 64 14 138/61 93 L 12/27/16 07:52 12/27/16 07:52 12/27/16 07:52 12/27/16 07:52 12/27/16 07:52 Internal Medicine: Result - Labs CBC & Chem 7: 12/27/16 06:12 12/27/16 06:12 Labs: Short CBC 12/27/16 Range/Units 06:12 WBC 6.4 (4.3-11.1) K/mcL Hgb 9.2 L (11.5-15.4) g/dL Hct 28.5 L (35.3-44.9) % Plt Count 162 (140-400) K/mcL Neutrophils # 4.2 (1.6-8.9) K/mcL BMP 12/27/16 06:12 Sodium 140 Potassium 3.9 Chloride 103 Carbon Dioxide 25 BUN 53 H Creatinine 1.98 H Glucose 100 H Calcium 8.9 - ABG Interpretation ABG results: PT/INR, D-dimer PT 12.1 Seconds (9.4-12.1) 12/25/16 12:05 - Attending Attestation I examined this patient and my medical decision-making was reviewed with the RAIL DOWELING MACHINE OPERATOR/PA/Advanced Practice Nurse/Resident Physician. I agree with the documented findings, disposition and treatment plan as described except to the extent set forth below. Agree with resident's note. CHF exacerbation with fluid overload in setting of diastolic dysfunction, monitor kidney function tests, follow cardio input. daily weights. D/W patient.
[2016-12-27] MEDS: Furosemide 40 MG TABLET PO SCH (06:21)
[2016-12-27] MEDS: *HR* Enoxaparin 30 MG/0.3 ML SYRINGE SQ SCH (06:21)
--- NOTE | 2016-12-27 06:25 | Electrocardiograph Report ---
[place] [id number] Test Date: 2016-12-25 Pat Name: Micaela Byrne Department: 102 Room: 2A25 Gender: F Twisting Department End Finder: : 1930 Requested By: Bekah Yee Order Number: [id number] Reading MD: Izaiah Rinaldi MD Measurements Intervals [place] Rate: 72 P: 61 PA: 162 QRS: 14 QRSD: 81 T: 38 QT: 374 QTc: 399 Interpretive Statements SINUS RHYTHM WITH OCCASIONAL SUPRAVENTRICULAR PREMATURE COMPLEXES Electronically Signed On 12-27-2016 6:23:36 EST by Izaiah Rinaldi MD
[2016-12-27 06:35] LABS: Basophils % 0.3 %; Eosinophils % 0.6 %; Hematocrit 28.5 % (35.3-44.9); Hemoglobin 9.2 g/dL (11.5-15.4); Immature Granulocytes % 0.5 % (0-4); Lymphocytes % 16.1 %; Mean Corpuscular HGB Conc 32.3 g/dL (31.6-35.5); Mean Corpuscular Hemoglobin 30.2 pg (28.0-33.3); Mean Corpuscular Volume 93.4 fL (83.0-100.0); Mean Platelet Volume 11.6 fL (9.4-12.4); Monocytes % 16.5 %; Platelet Count 162 K/mcL (140-400); Red Blood Count 3.05 M/mcL (3.82-4.97)
[2016-12-27 06:36] LABS: Monocytes # 1.1 K/mcL (0.0-1.3); Neutrophils # 4.2 K/mcL (1.6-8.9)
[2016-12-27 06:55] LABS: Calcium 8.9 mg/dL (8.6-10.8); Potassium 3.9 mEq/L (3.5-4.5)
[2016-12-27] MEDS: amLODIPine 5 MG TABLET PO SCH (08:21)
[2016-12-27] MEDS: Cholecalciferol (D-3) 1,000 UNIT TABLET PO SCH (08:21)
[2016-12-27] MEDS: Aspirin Enteric Coated 325 MG Tablet PO SCH (08:22)
[2016-12-27] MEDS: Cyanocobalamin (B-12) 1,000 MCG TABLET PO SCH (08:22)
[2016-12-27] MEDS: Metoprolol XL (24 HR) Succ 25 MG TAB.ER.24H PO SCH (08:22)
[2016-12-27] MEDS: hydrALAZINE 25 MG TABLET PO SCH (08:22)
--- NOTE | 2016-12-27 09:22 | Cardiology Progress Note ---
<Randall Uribe - Last Filed: 12/27/16 09:58> Date of Encounter: 12/27/16 Time of Encounter: 09:20 Assessment and Plan (1) Acute decompensated heart failure Current Visit: Yes Status: Acute Change dosing of PO lasix 20 mg to daily to continue outpatient. Echo revealed normal EF with mild valvular dysfunction, moderate diastolic dysfunction with pulmonary hypertension EKG without acute ischemia noted Continue to Monitor SCr and GFR. Have worsened slightly but patient continues to urinate without difficulty. Continue home medications We will sign off the patient at this time and have the patient follow-up with cardiology in the outpatient clinic in 1-2 weeks. (2) CKD (chronic kidney disease) stage 3, GFR 30-59 ml/min Current Visit: Yes Status: Chronic Hx of Stage 3 CKD. Primary team management (3) DVT prophylaxis Current Visit: Yes Status: Acute lovenox renal dose (4) Hypertension Current Visit: Yes Status: Chronic Continue home medications Expected better control of hypertension once better diuresis Qualifiers: Hypertension type: essential hypertension Qualified Code(s): I10 - Essential (primary) hypertension Discussion w patient/family: The assessment and plan as outlined above was discussed with the patient and/or family members who expressed understanding and agreement. All questions were answered. Thank you for involving us in the care of your patient. Please call with any questions. Subjective Principal diagnosis: Acute decompensated heart failure Interval history: Patient states she feels roughly the same as yesterday. She has no complaints of dyspnea. Her pedal edema has improved. She states she is ready to go home. Objective Vital Signs, Last 4 Hours Temp Pulse Resp BP Pulse Ox 12/27/16 07:52 97.7 F 64 14 138/61 93 L General: Conversant, No Apparent Distress HEENT: Atraumatic, Normocephaly, Mucus Membranes Moist Neck: No JVD, Normal carotid pulses Cardiac: Reg Rate and Rhythm, Normal S1 and S2, Other (Grade 2 systolc murmur) Lungs: Normal Breath Sounds, No Wheeze, Rales, Rhonchi Neuro: Alert and responsive, No focal deficits noted Abdomen: Soft, Non-Tender Skin: No rashes noted on visualized skin Musculoskeletal: No Chest Wall Tenderness Extremities: No Clubbing, No Cyanosis, No Edema, Normal Pulses Results 12/27/16 06:12 12/27/16 06:12 Lab Results 12/27/16 12/27/16 06:12 06:12 WBC 6.4 Hgb 9.2 L Hct 28.5 L Plt Count 162 Sodium 140 Potassium 3.9 Chloride 103 Carbon Dioxide 25 BUN 53 H Creatinine 1.98 H Glucose 100 H Calcium 8.9 Consult Discharge Plan - Plan Referrals: Prisca Weber, TRAINING AND DEVELOPMENT SPECIALIST [Primary Care Provider] - 01/03/17 1:00 pm (Requested ) Prescriptions: Furosemide [Lasix] 20 mg PO DAILY PRN #30 tablet PRN Reason: Edema - Attending Attestation I examined this patient and my medical decision-making was reviewed with the Resident Physician. I agree with the documented findings, disposition and treatment plan as described except to the extent set forth below. <Madan Yuan - Last Filed: 12/27/16 12:02> Date of Encounter: 12/27/16 Assessment and Plan Discussion w patient/family: The assessment and plan as outlined above was discussed with the patient and/or family members who expressed understanding and agreement. All questions were answered. Thank you for involving us in the care of your patient. Please call with any questions. Objective Vital Signs, Last 4 Hours Temp Pulse Resp BP Pulse Ox 12/27/16 11:18 98.2 F 70 18 127/70 97 12/27/16 09:00 93 L Results 12/27/16 06:12 12/27/16 06:12 Lab Results 12/27/16 12/27/16 06:12 06:12 WBC 6.4 Hgb 9.2 L Hct 28.5 L Plt Count 162 Sodium 140 Potassium 3.9 Chloride 103 Carbon Dioxide 25 BUN 53 H Creatinine 1.98 H Glucose 100 H Calcium 8.9 Attestation Statement - Attestation Attestation: I examined this patient and my medical decision-making was reviewed with the COAL CARRIER/PA/Advanced Practice Nurse/Resident Physician. I agree with the documented findings, disposition and treatment plan as described except to the extent set forth below. Pt denies any cp, sob, pnd VSS JVD: 6-7 cm Chest Clear CVS: no s3 appears to be euvolemic ok for d/c Lasix 20 mg /day
[2016-12-27] MEDS ORDERED: Furosemide 20 MG TABLET PO PRN (09:57)
--- NOTE | 2016-12-27 11:02 | Discharge Summary ---
<Gregory De La Torre - Last Filed: 12/27/16 10:56> Date of Encounter: 12/27/16 Time of Encounter: 10:57 - Discharge Diagnosis (1) Acute decompensated heart failure Priority: Primary Status: Acute (2) CKD (chronic kidney disease) stage 3, GFR 30-59 ml/min Priority: Secondary Status: Chronic (3) Hypertension Priority: Secondary Status: Chronic Qualifiers: Hypertension type: essential hypertension Qualified Code(s): I10 - Essential (primary) hypertension (4) DVT prophylaxis Priority: Secondary Status: Acute - Discharge Medications Prescriptions: Furosemide [Lasix] 20 mg PO DAILY PRN #30 tablet PRN Reason: Edema Home Medications: Amlodipine [Norvasc] 10 mg PO DAILY 12/25/16 [History] Aspirin/Calcium Carbonate/Mag [Aspirin Buffered 325 mg Tab] 325 mg PO DAILY [History] Chlorthalidone 25 mg PO DAILY 12/25/16 [History] Cholecalciferol (D-3) [Vitamin D] 1,000 unit PO DAILY 12/25/16 [History] Citalopram [CeleXA] 20 mg PO DAILY 12/25/16 [History] Cyanocobalamin (Vitamin B-12) [Vitamin B-12] 500 mcg PO DAILY 12/25/16 [History] HydrALAZINE 25 mg PO BID 12/25/16 [History] LORazepam [Ativan] 1 - 2 mg PO HS PRN 12/25/16 [History] Metoprolol XL (24 HR) Succ [Toprol Xl] 25 mg PO DAILY 12/25/16 [History] Furosemide [Lasix] 20 mg PO DAILY PRN #30 tablet 12/27/16 [Rx] Allergies/Adverse Reactions: Allergies meperidine [From Demerol] Allergy (Verified 12/25/16 13:26) Hives iodine Adverse Reaction (Verified 12/25/16 11:34) Nausea Procedures/tests Complete & Pending: Procedures Performed prior 72 hours Category Date Time Status EKG [ECG 12 lead ECG] [ECG] Stat Y 12/25/16 14:57 Ordered EV echocardiogram Routine Y 12/25/16 14:00 Completed Date of admission: 12/25/16 13:16 Primary care physician: Prisca Weber CNP Consults: 12/25/16 14:52 Consult to Cardiology [CONS] Routine Comment: Consulting Provider: Gwendolyn Torres Reason for Consult: CHF- Chest pain Time Notified: 14:52 Call Completed: Yes 12/26/16 14:38 Consult to Physical Therapy [CONS] Routine Comment: Evaluate, develop and implement POC Consult to Art Model [CONS] Routine Reason for SW Consult: services upon discharge OT [Consult to Occupational Therapy] [CONS] Routine Comment: Evaluate, develop and implement POC Discharging clinician: Gregory De La Torre Anticipated date of discharge: 12/27/16 - Patient Status Disposition: Home, Self-Care Condition: Fair Functional capacity at discharge: independent ambulation (ell) Overall status at discharge: patient is progressing back to baseline - Discharge Instructions Follow Up With: Prisca Weber CNP [Primary Care Provider] - 01/03/17 1:00 pm (Requested ) - Diet and Activity Activity: increase activity as tolerated Diet: advance to your usual diet Hospital course: Ms. Byrne is a 85 year old female admitted 12/25/16 for dyspnea and cough x3 weeks. She was found to have CHF exacerbation with fluid overload in setting of diastolic dysfunction. Echocardiogram showed normal LVEF = 60-65%, moderate diastolic dysfunction of the left ventricle, normal right ventricle, mild aortic stenosis, mitral regurg, and tricuspid regurg, as well as moderate pulmonary hypertension with RVSP = 52. She was fluid restricted and received Lasix with marked improvement in. She will be sent home with a prescription for 20 mg Lasix daily as needed for symptomatic treatment/fluid retention. Patient was instructed to avoid losartan for now due to potential for nephrotoxicity and also to follow-up with PCM and obtain repeat kidney studies in the next few days. - Time Spent with Patient Total time spent providing and/or coordinating discharge services: Greater than 30 minutes - Constitutional Vitals: Temp Pulse Resp BP Pulse Ox 97.7 F 64 14 138/61 93 L 12/27/16 07:52 12/27/16 07:52 12/27/16 07:52 12/27/16 07:52 12/27/16 09:00 General appearance: Present: answers questions appropriately - Head Head exam: Present: atraumatic, normocephalic - Eye Eye exam: Present: PERRL, conjuntiva pink, sclera anicteric Pupils: Present: PERRL - Neck Neck exam general surgery: Present: supple, trachea midline. Absent: lymphadenopathy - Respiratory Respiratory exam: Present: CTAB. Absent: accessory muscle use, rales, rhonchi, wheezes - Cardiovascular Cardiovascular exam: Present: RRR, +S1, +S2. Absent: diastolic murmur, gallop, rubs, systolic murmur - GI/Abdominal GI/Abdominal exam: Present: normal bowel sounds, soft, no peritoneal signs. Absent: distended, tenderness - Extremities Exam Extremities exam: Present: warm, radial pulses palpable and symetrical. Absent : calf tenderness, cyanotic, pedal edema - Neurological Exam Neurological exam: Present: CN II-XII intact, oriented X3, no focal deficits. Absent: pronater drift, facial droop, speech deficit - Skin Skin exam: Present: dry, intact <Robby Reyes - Last Filed: 12/27/16 15:45> Date of Encounter: 12/27/16 Procedures/tests Complete & Pending: Procedures Performed prior 72 hours Category Date Time Status EKG [ECG 12 lead ECG] [ECG] Stat Y 12/25/16 14:57 Ordered EV echocardiogram Routine Y 12/25/16 14:00 Completed Date of admission: 12/25/16 13:16 Primary care physician: Prisca Weber CNP Consults: 12/25/16 14:52 Consult to Cardiology [CONS] Routine Comment: Consulting Provider: Gwendolyn Torres Reason for Consult: CHF- Chest pain Time Notified: 14:52 Call Completed: Yes 12/26/16 14:38 Consult to Physical Therapy [CONS] Routine Comment: Evaluate, develop and implement POC Consult to Art Model [CONS] Routine Reason for SW Consult: services upon discharge OT [Consult to Occupational Therapy] [CONS] Routine Comment: Evaluate, develop and implement POC Hospital course: Ms. Byrne is a 85 year old female - Time Spent with Patient Total time spent providing and/or coordinating discharge services: - Constitutional Vitals: Temp Pulse Resp BP Pulse Ox 98.2 F 72 18 127/70 97 12/27/16 11:18 12/27/16 14:33 12/27/16 14:33 12/27/16 11:18 12/27/16 11:18 - Attending Attestation I examined this patient and my medical decision-making was reviewed with the RN INTEGRATED/PA/Advanced Practice Nurse/Resident Physician. I agree with the documented findings, disposition and treatment plan as described except to the extent set forth below. CHF exacerbation with diastolic dysfunction. Stable for discharge, lasix prn at home, avoid nephrotoxic agents.
[2016-12-27 11:18] VITALS: BP 127/70
== END 2016-12-27 17:32 | disposition home or self-care (01) ==
LOC: EMEROO 11:25 → 2ANU 11:25 → SUATTDRO 13:16 → 2ANU 13:42
PROVIDERS: ADMIT Internal Medicine; ATTEND Internal Medicine

== ENCOUNTER 2017-01-15 17:19 | Inpatient (IN) ==
--- NOTE | 2017-01-15 17:47 | Emergency Department Note ---
Disposition Clinical Impression: Acute exacerbation of CHF (congestive heart failure) Qualifiers: Congestive heart failure type: diastolic Qualified Code(s): I50.33 - Acute on chronic diastolic (congestive) heart failure Disposition: Admitted As Inpatient Condition: Good SOB HPI - General Chief Complaint: ED Shortness of Breath/Dyspnea Stated Complaint: ISAIAS "Filled up w/ Fluid" Time Seen by Provider: 01/15/17 17:36 Source: patient, family Mode of arrival: wheelchair Limitations: no limitations Nursing Notes Reviewed: Yes Vital Signs Reviewed: Yes - History of Present Illness 86-year-old female history of congestive heart failure, CK 83 who presents to the ER with a chief complaint of shortness of breath. Patient reports that she was just recently discharged a few weeks ago for CHF exacerbation. They report that for the last 3 days she has felt short of breath at home. It is worse with exertion. States she has had a 9 pound weight gain since she was discharged. Reports compliance with her Lasix. She reports that she has also had heaviness over her chest for the last 3 days as well. She is not on oxygen at home. She was 92% on room air here. She reports that she does feel swollen in her legs. No other complaints. Pt Subjective Complaint: shortness of breath Onset (ago): day(s) (3) Severity: severe Consistency/Duration: constant Improves with: nothing Worsens with: lying flat, exertion Known history of: congestive heart failure Associated symptoms: Reports: chest pain, cough, orthopnea. Denies: fever, nausea/vomiting Treatment prior to arrival: none Cough present: Yes Cough Description: Involuntary Cough Frequency: Intermittent Sputum production: No Sputum Amount: Small Sputum Color: Yellow - Related Data Home oxygen amount: none Home Medications Medication Instructions Recorded Confirmed Amlodipine [Norvasc] 10 mg PO DAILY 12/25/16 01/15/17 Aspirin/Calcium Carbonate/Mag 325 mg PO DAILY 12/25/16 01/15/17 [Aspirin Buffered 325 mg Tab] Cholecalciferol (D-3) [Vitamin D] 1,000 unit PO DAILY 12/25/16 01/15/17 Citalopram [CeleXA] 20 mg PO DAILY 12/25/16 01/15/17 Cyanocobalamin (Vitamin B-12) 500 mcg PO DAILY 12/25/16 01/15/17 [Vitamin B-12] HydrALAZINE 25 mg PO BID 12/25/16 01/15/17 Metoprolol XL (24 HR) Succ [Toprol 25 mg PO DAILY 12/25/16 01/15/17 Xl] Previous Rx's Medication Instructions Recorded Furosemide [Lasix] 20 mg PO DAILY PRN #30 tablet 12/27/16 Allergies Allergy/AdvReac Type Severity Reaction Status Date / Time meperidine [From Demerol] Allergy Hives Verified 12/25/16 13:26 iodine AdvReac Nausea Verified 12/25/16 11:34 All systems ED: reviewed and negative except as stated. Constitutional: Denies: fever Cardiovascular: Reports: chest pain Respiratory: Reports: cough, dyspnea. Denies: wheezes Gastrointestinal: Denies: abdominal pain, nausea, vomiting Past Medical History - Past Medical History Attestation: Yes The following information was validated with the patient. Source: patient Medical history: Reports: CHF, hypertension, renal disease Surgical history: Reports: non-contributory Psychiatric history: Reports: anxiety, depression - Social History Smoking Status: Never smoker Smokeless Tobacco Status: No Alcohol use: Reports: none Drug use: Reports: none Physical Exam - General Limitations: no limitations General appearance: alert, in no apparent distress - Head Head exam: atraumatic, normocephalic, normal inspection - Eye Eye exam: Present: normal appearance, EOMI - ENT ENT exam: normal exam - Neck Neck exam: Present: normal inspection - Chest Chest inspection: Present: normal inspection, symmetric chest wall rise - Respiratory Respiratory exam: Present: other (Diminished breath sounds bilaterally) - Cardiovascular Cardiovascular exam: Present: regular rate, normal rhythm, normal heart sounds - Abdominal Exam Abdominal exam: Present: soft, Non-Tender. Absent: tenderness - Expanded Upper Extremity Exam Shoulder exam: Present: normal inspection, full ROM Arm exam: Present: normal inspection, full ROM Elbow exam: Present: normal inspection, full ROM Forearm/Wrist exam: Present: normal inspection, full ROM Hand exam: Present: normal inspection, full ROM - Expanded Lower Extremity Exam Hip/Pelvis exam: Present: normal inspection, full ROM Upper leg exam: Present: normal inspection, full ROM Knee exam: Present: normal inspection, full ROM Lower leg exam: Present: normal inspection, full ROM, swelling (Bilateral lower extremity 1+ edema) Ankle exam: Present: normal inspection, full ROM Foot/toe exam: Present: normal inspection, full ROM Course Course Narrative: Patient seen and examined. Vital signs reviewed. We will get an EKG, chest x- ray as well as basic labs including troponin and BNP. - Reevaluation(s) Reevaluation #1: Discussed results of lab work and imaging with the patient. She is agreeable with staying in the hospital. Vital Signs Temperature 97.4 F L 01/15/17 17:22 Pulse Rate 73 01/15/17 17:22 Respiratory Rate 26 01/15/17 17:22 Blood Pressure 151/58 01/15/17 17:22 O2 Sat by Pulse Oximetry 92 L 01/15/17 17:22 Temperature 97.4 F L 01/15/17 17:22 Pulse Rate 73 01/15/17 17:22 Respiratory Rate 26 01/15/17 17:22 Blood Pressure 151/58 01/15/17 17:22 O2 Sat by Pulse Oximetry 95 01/15/17 17:34 Oxygen Delivery Oxygen Delivery Room Air Shortness of Breath/Dyspnea - [facility] Narrative Medical decision making narrative: 86-year-old female history of CHF, CKD stage III who presents to the ER due to shortness of breath. Was seen at her PCP earlier today and sent over. 92% on room air. Reports 9 pound weight gain in the last 3 weeks. Has been compliant with medications. EKG here is unchanged from previous. Chest x-ray with bilateral pleural effusions. BNP over 1000. Creatinine stable. Given 40 mg of Lasix here and admitted to the hospitalist service. - Lab Data Lab results reviewed: Yes I reviewed the patient's lab results. Result diagrams: 01/15/17 18:00 01/15/17 18:00 Lab Results 01/15/17 01/15/17 01/15/17 Range/Units 18:00 18:00 18:00 WBC 8.3 (4.3-11.1) K/mcL RBC 3.05 L (3.82-4.97) M/mcL Hgb 8.8 L (11.5-15.4) g/dL Hct 27.8 L (35.3-44.9) % MCV 91.1 (83.0-100.0) fL MCH 28.9 (28.0-33.3) pg MCHC 31.7 (31.6-35.5) g/dL RDW 13.6 (11.5-14.5) % Plt Count 216 (140-400) K/mcL MPV 10.9 (9.4-12.4) fL Immature Gran % 0.5 (0-4) % Seg Neutrophils % 76.4 % Lymphocytes % 10.0 % Monocytes % 12.5 % Eosinophils % 0.2 % Basophils % 0.4 % Neutrophils # 6.4 (1.6-8.9) K/mcL Lymphocytes # 0.8 (0.6-4.6) K/mcL Monocytes # 1.0 (0.0-1.3) K/mcL Eosinophils # 0.0 (0.0-0.6) K/mcL Basophils # 0.0 (0.0-0.2) K/mcL PT 13.2 H (9.4-12.1) Seconds INR 1.2 APTT 29.1 (26.0-36.0) Seconds Sodium 138 (136-145) mEq/L Potassium 3.7 (3.5-4.5) mEq/L Chloride 103 (98-109) mEq/L Carbon Dioxide 23 (19-29) mEq/L BUN 61 H (7-20) mg/dL Creatinine 1.87 H (0.57-1.11) mg/dL Est GFR ( Amer) 31 L (> 60) Est GFR (Non-Af Amer) 26 L (> 60) BUN/Creatinine Ratio 33 H (6-26) Glucose 102 H (70-99) mg/dL Calculated Osmolality 303 H (280-300) Calcium 9.0 (8.6-10.8) mg/dL Troponin I (0-0.03) ng/mL B-Natriuretic Peptide (0-100) pg/mL 01/15/17 01/15/17 Range/Units 18:00 18:00 WBC (4.3-11.1) K/mcL RBC (3.82-4.97) M/mcL Hgb (11.5-15.4) g/dL Hct (35.3-44.9) % MCV (83.0-100.0) fL MCH (28.0-33.3) pg MCHC (31.6-35.5) g/dL RDW (11.5-14.5) % Plt Count (140-400) K/mcL MPV (9.4-12.4) fL Immature Gran % (0-4) % Seg Neutrophils % % Lymphocytes % % Monocytes % % Eosinophils % % Basophils % % Neutrophils # (1.6-8.9) K/mcL Lymphocytes # (0.6-4.6) K/mcL Monocytes # (0.0-1.3) K/mcL Eosinophils # (0.0-0.6) K/mcL Basophils # (0.0-0.2) K/mcL PT (9.4-12.1) Seconds INR APTT (26.0-36.0) Seconds Sodium (136-145) mEq/L Potassium (3.5-4.5) mEq/L Chloride (98-109) mEq/L Carbon Dioxide (19-29) mEq/L BUN (7-20) mg/dL Creatinine (0.57-1.11) mg/dL Est GFR ( Amer) (> 60) Est GFR (Non-Af Amer) (> 60) BUN/Creatinine Ratio (6-26) Glucose (70-99) mg/dL Calculated Osmolality (280-300) Calcium (8.6-10.8) mg/dL Troponin I 0.01 (0-0.03) ng/mL B-Natriuretic Peptide 1014 H (0-100) pg/mL - Radiology Data Radiology results reviewed: Yes I reviewed the patient's radiology results. Chest X-Ray 01/15/17 17:27 IMPRESSION: Bilateral perihilar and basilar edema with small bilateral effusions most consistent with CHF. D/ / Ronnie Arenas MD / Ronnie Arenas MD Interpreting Provider: Ronnie Arenas MD - EKG Data EKG attestation: Yes I reviewed and interpreted this EKG. EKG results narrative: EKG demonstrates sinus rhythm with a rate of 67 bpm. Normal axis. LA interval 147 QRS duration 93 QTc 429 T wave flattening in lead [address] elevations or depressions. No acute ischemic findings. S.B.A.R. - S.B.A.R. Situation: Demographics, MOA Background: Presenting Complaint, Relevant PMH, Meds, & Allergies Assessment: Vital Signs, Course and respsone to treatment, Exam Concerns, Patient/Family Expectation, Pertinant Lab Results, Outstanding Labs Recommendation: Barrier(s) to disposition, Recommendation based on pending studies, treatments, or consults Tanja Report Given to: Dr. Cesar Agrawal Repor Time: 19:26 Attestation Statement - Attestation Attestation: I examined this patient and my medical decision-making was reviewed with the TENN[employer] CAMP INSTRUCTOR/PA/Advanced Practice Nurse/Resident Physician. I agree with the documented findings, disposition and treatment plan as described except to the extent set forth below.
[2017-01-15 18:13] LABS: Basophils % 0.4 %; Eosinophils % 0.2 %; Hematocrit 27.8 % (35.3-44.9); Hemoglobin 8.8 g/dL (11.5-15.4); Immature Granulocytes % 0.5 % (0-4); Lymphocytes # 0.8 K/mcL (0.6-4.6); Mean Corpuscular HGB Conc 31.7 g/dL (31.6-35.5); Mean Corpuscular Hemoglobin 28.9 pg (28.0-33.3); Mean Corpuscular Volume 91.1 fL (83.0-100.0); Mean Platelet Volume 10.9 fL (9.4-12.4); Monocytes % 12.5 %; Neutrophils # 6.4 K/mcL (1.6-8.9); Platelet Count 216 K/mcL (140-400); Red Blood Count 3.05 M/mcL (3.82-4.97); Red Cell Distribution Width 13.6 % (11.5-14.5); Segmented Neutrophils % 76.4 %
[2017-01-15 18:20] LABS: INR 1.2; Prothrombin Time 13.2 Seconds (9.4-12.1)
[2017-01-15 18:22] LABS: Activated Partial Thrombo Time 29.1 Seconds (26.0-36.0)
[2017-01-15 18:25] LABS: Potassium 3.7 mEq/L (3.5-4.5)
[2017-01-15] MEDS ORDERED: Furosemide 40 MG/4 ML VIAL IVP ONE (18:34)
[2017-01-15] MEDS ORDERED: Naloxone 0.4 MG/ML INJ IVP PRN (20:55)
--- NOTE | 2017-01-15 21:08 | Internal Med History&Physical ---
Date of Encounter: 01/15/17 Time of Encounter: 21:06 Assessment and Plan (1) Acute exacerbation of CHF (congestive heart failure) Current visit: Yes Status: Acute Patient with 9 pound weight gain. Has not been following fluid restriction at home. Reports compliance with her home lasix - IV lasix given in ER - Continue IV lasix 40mg BID - Carefully follow I/O, obtain daily weights - Fluid restriction (2) Atypical chest pain Current visit: No Status: Acute Likely related to volume overload and shortness of breath. Troponin negative. EKG without ischemic changes - Trend troponin (3) CKD (chronic kidney disease) stage 3, GFR 30-59 ml/min Current visit: No Status: Chronic Creatinine at baseline. - Monitor daily creatinine with diuresis (4) Hypertension Current visit: No Status: Chronic BP stable - Continue home medications Qualifiers: Hypertension type: essential hypertension Qualified Code(s): I10 - Essential (primary) hypertension Internal Medicine - H&P: HPI Chief complaint: Shortness of breath, edema Admitted From: Emergency Dept Plans for Post Hospital Care: Home History of present illness: Ms. Byrne is a 86 year old female with history of CHF (moderate diastolic dysfunction with LVEF 60% on recent TTE), CKD stage III, and HTN who presented to the ER this afternoon with complaint of shortness of breath and lower extremity edema which have been worsening over the past one week. She states that she was admitted with similar issue three weeks ago and was diuresed and felt well on discharge. At her last admission she was taking chlorthalidone 25mg daily but this was changed to lasix 20mg daily PRN on discharge from the hospital. She has been taking the lasix daily but her weight has increased 9 pounds over the past week. She has noticed that her lower extremities are edematous and her pants are fitting tightly because of edema around her waistline. She has developed shortness of breath and had to sleep propped up with pillows for the last two nights. She has chest pressure which has been present for the past three days. IT is worse with deep breath and similar to the chest pressure she felt during her last admission for CHF exacerbation. She also complains of headache. She has not been limiting her fluid intake at home, as she states she was told to increase her fluids when she was discharged from the hospital three weeks ago. Past Med Surg Social Fam HX - Past Medical History Medical history: CHF (moderate diastolic dysfunction, EF 60%), hypertension, renal disease (CKD stage III, follows with Dr. Bonilla) Psychiatric history: anxiety, depression - Past Surgical History Surgical History: non-contributory - Social History Smoking Status: Never smoker Smokeless Tobacco Status: No Alcohol use: none Drug use: none Current living situation: Home Additional social history: Lives at home with her who has metastatic prostate cancer. Her son lives next door and checks on her frequently. - Family History Mother Living Status: Father Living Status: Hx Family Cancer: Yes (stomach) Internal Medicine - H&P: Meds Amlodipine [Norvasc] 10 mg PO DAILY 12/25/16 [History] Aspirin/Calcium Carbonate/Mag [Aspirin Buffered 325 mg Tab] 325 mg PO DAILY [History] Cholecalciferol (D-3) [Vitamin D] 1,000 unit PO DAILY 12/25/16 [History] Citalopram [CeleXA] 20 mg PO DAILY 12/25/16 [History] Cyanocobalamin (Vitamin B-12) [Vitamin B-12] 500 mcg PO DAILY 12/25/16 [History] HydrALAZINE 25 mg PO BID 12/25/16 [History] Metoprolol XL (24 HR) Succ [Toprol Xl] 25 mg PO DAILY 12/25/16 [History] Furosemide [Lasix] 20 mg PO DAILY PRN #30 tablet 12/27/16 [Rx] Allergies meperidine [From Demerol] Allergy (Verified 12/25/16 13:26) Hives iodine Adverse Reaction (Verified 12/25/16 11:34) Nausea All Systems PM: A 10-system review of systems was performed and is negative for pertinent findings except as documented above in the HPI. - Constitutional Vitals: Temp Pulse Resp BP Pulse Ox 97.5 F L 66 20 137/62 93 L 01/15/17 20:56 01/15/17 20:56 01/15/17 20:56 01/15/17 20:56 01/15/17 20:56 General appearance: Present: A&O X 3 Exam: Patient in no acute distress, resting comfortably in bed - Head Head exam: Present: atraumatic - Eye Eye exam: Present: EOMI, sclera anicteric - ENT ENT exam: Present: mucous membranes moist - Neck Neck exam general surgery: Present: supple - Respiratory Additional comments: Crackles in bilateral bases - Cardiovascular Cardiovascular exam: Present: RRR, systolic murmur (3/6 systolic murmur heard best at left upper sternal border). Absent: rubs - GI/Abdominal GI/Abdominal exam: Present: normal bowel sounds, soft. Absent: distended, tenderness - Extremities Exam Extremities exam: Present: pedal edema (2+ edema bilateral lower extremities. No calf tenderness) - Neurological Exam Neurological exam: Present: no focal deficits - Skin Skin exam: Absent: rash Internal Med - H&P Results - Labs CBC & Chem 7: 01/15/17 18:00 01/15/17 18:00
[2017-01-15] MEDS ORDERED: Acetaminophen 325 MG TABLET PO PRN (21:51)
[2017-01-15] MEDS: hydrALAZINE 25 MG TABLET PO SCH (21:59)
[2017-01-15] MEDS: Furosemide 40 MG/4 ML VIAL IVP SCH (21:59)
[2017-01-16] MEDS ORDERED: *HR* Metoprolol 5 MG/5 ML VIAL IVP ONE ×3 (04:10→05:01)
[2017-01-16] MEDS ORDERED: *HR* Enoxaparin 60 MG/0.6 ML SYRINGE SQ ONE (04:11)
[2017-01-16] MEDS ORDERED: *HR* Heparin 5,000 UNIT/ML VIAL SQ SCH (06:00)
[2017-01-16 06:51] LABS: Basophils % 0.3 %; Eosinophils % 0.4 %; Immature Granulocytes % 0.8 % (0-4); Immature Platelets 5.5 % (1.1-6.1); Lymphocytes # 0.7 K/mcL (0.6-4.6); Lymphocytes % 8.9 %; Mean Corpuscular Hemoglobin 29.5 pg (28.0-33.3); Mean Corpuscular Volume 92.3 fL (83.0-100.0); Mean Platelet Volume 11.6 fL (9.4-12.4); Monocytes % 13.1 %; Neutrophils # 5.6 K/mcL (1.6-8.9); Platelet Count 200 K/mcL (140-400); Red Blood Count 2.71 M/mcL (3.82-4.97); Red Cell Distribution Width 13.7 % (11.5-14.5); Segmented Neutrophils % 76.5 %
[2017-01-16 07:05] LABS: Calcium 8.4 mg/dL (8.6-10.8); Potassium 3.6 mEq/L (3.5-4.5)
[2017-01-16] MEDS: Aspirin Enteric Coated 325 MG Tablet PO SCH (07:57)
[2017-01-16] MEDS: hydrALAZINE 25 MG TABLET PO SCH ×2 (07:57→20:30)
[2017-01-16] MEDS: Furosemide 40 MG/4 ML VIAL IVP SCH ×2 (07:57→20:30)
[2017-01-16] MEDS: Metoprolol XL (24 HR) Succ 25 MG TAB.ER.24H PO SCH (07:58)
[2017-01-16] MEDS: Cholecalciferol (D-3) 1,000 UNIT TABLET PO SCH (07:58)
[2017-01-16] MEDS: amLODIPine 5 MG TABLET PO SCH (07:58)
--- NOTE | 2017-01-16 14:15 | Internal Med Progress Note ---
<Randall Xavier - Last Filed: 01/16/17 14:23> Date of Encounter: 01/16/17 Time of Encounter: 14:14 - Assessment and plan (1) Atrial fibrillation with RVR Current Visit: Yes Status: Acute Assessment and plan: Patient presents with new onset atrial fibrillation with rapid ventricular rates around 130. Patient has a recent diagnosis of diastolic heart failure with a recent echocardiogram demonstrated an ejection fraction of 60-65% with diastolic dysfunction of the left ventricle. She was recently evaluated by cardiology in the outpatient setting with her new diagnosis. Recent discontinuation of chlorthalidone, HCTZ. Clinical examination associated with patient history demonstrates a diagnosis of congestive heart failure; patient has orthopnea, diffuse crackles with inspiratory and expiratory effort, bilateral lower extremity edema. - Rate control was attempted with Toprol-XL without significant control. - Blood pressure is in the low 100s systolically. - Appropriate rate control may help cardiac output and pulmonary congestion. Plan: - We will start IV Cardizem with rapid ventricular rate in attempt of rate control. - Monitoring blood pressure while starting Cardizem. - We will consult cardiology with new onset atrial fibrillation, recent diagnosis of high sock heart failure. Concern for potential ischemic event? - Cardiac diet with 2 g sodium restriction, 2 L fluid restriction. - Daily weights. (2) Acute exacerbation of CHF (congestive heart failure) Current Visit: Yes Status: Acute Assessment and plan: Ms. Byrne demonstrates exacerbation of diastolic heart failure. Recent diagnosis of diastolic heart failure Clinical examination associated with patient history demonstrates a diagnosis of congestive heart failure; patient has orthopnea, diffuse crackles with inspiratory and expiratory effort, bilateral lower extremity edema. Plan: - Continue aspirin 325 mg by mouth daily - Continue IV Lasix 40 mg BID ( monitor renal function as patient has stage III kidney disease) - Management as listed above. Qualifiers: Congestive heart failure type: diastolic Qualified Code(s): I50.33 - Acute on chronic diastolic (congestive) heart failure (3) CKD (chronic kidney disease) stage 3, GFR 30-59 ml/min Current Visit: No Status: Chronic Assessment and plan: Documented history of CKD stage III, patient's primary touch up painter is Dr. Bonilla. Review of EMR demonstrates creatinine average around 1.5. Current creatinine: 1.88 down from 2.41 at admission. Suspected secondary to atrial fibrillation and diastolic heart failure resulting in poor cardiac output and renal perfusion. -Renal failure may be contributing to volume overload, fluid and sodium restrictions will be important for prevention CHF exacerbation. Plan: - Continue IV Lasix and fluid restrictions to address preload and improve perfusion of kidneys. - Rate control for atrial fibrillation to improve cardiac output and renal perfusion. - Monitor renal function with a.m. labs. - Renally dose medications/antibiotics and avoid nephrotoxic medications as allowed. (4) Hypertension Current Visit: No Status: Chronic Assessment and plan: Patient is a history of hypertension for which she is currently on hydralazine 25 mg by mouth twice a day, Norvasc 10 mg by mouth daily and Toprol-XL 25 mg by mouth daily at home. - Blood pressure on the lower end of normal. Continue to hold antihypertensives as we improve rate control. Plan: - Hold antihypertensive medications until blood pressure is stable. Qualifiers: Hypertension type: essential hypertension Qualified Code(s): I10 - Essential (primary) hypertension (5) DVT prophylaxis Current Visit: No Status: Acute Assessment and plan: Subcutaneous heparin every 12 hours. - Subjective Interval history: Ms. Byrne has been seen and evaluated at patient bedside this morning. She says that she is doing better compared to yesterday when she was admitted. She can breathe better and denies any coughing today. No sputum production. She has seen Drs. Mcintosh in the outpatient setting about a week ago after discharge from the hospital with a diagnosis of diastolic heart failure. She had recent adjustment to her antihypertensives with chlorthalidone and HCTZ discontinued. - Constitutional Vitals: Temp Pulse Resp BP Pulse Ox 98.2 F 104 16 103/65 95 01/16/17 11:24 01/16/17 11:24 01/16/17 11:24 01/16/17 11:24 01/16/17 11:24 General appearance: Present: A&O X 3, pleasant, no acute distress - Head Head exam: Present: atraumatic, normocephalic - Eye Eye exam: Present: PERRL, conjuntiva pink, sclera anicteric Pupils: Present: PERRL - ENT ENT exam: Present: mucous membranes moist - Neck Neck exam general surgery: Present: supple, trachea midline. Absent: lymphadenopathy - Respiratory Additional comments: Diffuse crackles with inspiratory and expiratory respiratory effort. - Cardiovascular Cardiovascular exam: Present: irregular rhythm, systolic murmur (Grade 3 out of 6) Additional comments: Heart rate 130. - GI/Abdominal GI/Abdominal exam: Present: normal bowel sounds, soft, no peritoneal signs. Absent: distended, tenderness - Extremities Exam Extremities exam: Present: pedal edema (Bilateral trace lower extremity edema.) , warm, radial pulses palpable and symetrical. Absent: calf tenderness, cyanotic - Neurological Exam Neurological exam: Present: alert, oriented X3, no focal deficits. Absent: pronater drift, facial droop, speech deficit - Psychiatric Psychiatric exam: Present: normal affect, normal mood Internal Medicine: Result - Labs CBC & Chem 7: 01/16/17 06:12 01/16/17 06:12 Labs: Short CBC 01/16/17 Range/Units 06:12 WBC 7.3 (4.3-11.1) K/mcL Hgb 8.0 L (11.5-15.4) g/dL Hct 25.0 L (35.3-44.9) % Plt Count 200 (140-400) K/mcL Neutrophils # 5.6 (1.6-8.9) K/mcL BMP 01/16/17 06:12 Sodium 140 Potassium 3.6 Chloride 104 Carbon Dioxide 28 BUN 57 H Creatinine 1.88 H Glucose 106 H Calcium 8.4 L Cardiac Enzymes 01/15/17 01/16/17 01/16/17 Range/Units 21:50 06:12 13:03 Troponin I 0.01 0.01 0.01 (0-0.03) ng/mL - ABG Interpretation ABG results: PT/INR, D-dimer PT 13.2 Seconds (9.4-12.1) H 01/15/17 18:00 Consult Discharge Plan - Plan Referrals: Prisca Weber, MOLDING AND [employer] INSTALLER [Primary Care Provider] - (web request sent on 01/16/17) <Harvinder Martinez - Last Filed: 01/16/17 18:42> - Assessment and plan (1) Acute exacerbation of CHF (congestive heart failure) Current Visit: Yes Status: Acute Qualifiers: Congestive heart failure type: diastolic Qualified Code(s): I50.33 - Acute on chronic diastolic (congestive) heart failure (2) Atrial fibrillation Current Visit: Yes Status: Acute Assessment and plan: Cardiac evaluation tomorrow. Rate control if goes back to a fib. Qualifiers: Atrial fibrillation type: paroxysmal Qualified Code(s): I48.0 - Paroxysmal atrial fibrillation (3) CKD (chronic kidney disease) stage 3, GFR 30-59 ml/min Current Visit: No Status: Chronic (4) Hypertension Current Visit: No Status: Chronic Qualifiers: Hypertension type: essential hypertension Qualified Code(s): I10 - Essential (primary) hypertension (5) Acute kidney failure Current Visit: Yes Status: Acute Assessment and plan: Improving with IV fluids. Qualifiers: Acute renal failure type: unspecified Qualified Code(s): N17.9 - Acute kidney failure, unspecified - Constitutional Vitals: Temp Pulse Resp BP Pulse Ox 97.9 F 57 16 96/50 90 L 01/16/17 17:02 01/16/17 17:02 01/16/17 17:02 01/16/17 17:02 01/16/17 17:02 Internal Medicine: Result - Labs CBC & Chem 7: 01/16/17 06:12 01/16/17 06:12 - ABG Interpretation ABG results: PT/INR, D-dimer PT 13.2 Seconds (9.4-12.1) H 01/15/17 18:00 - Attending Attestation I examined this patient and my medical decision-making was reviewed with the Resident Physician on 01/16/17. I agree with the documented findings, disposition and treatment plan as described except to the extent set forth below. Ms. Byrne is currently admitted for acute exac chronic diastolic heart failure and parox a fib. She remains high risk due to potential for worsening cardiac status and need for multiple medicine adjustments. Ms. Byrne developed rapid a fib during the night. No CP. SBP borderline all day. Plan to start IV Cardizem but she spontaneously converted to sinus rhythm. She is on PO ASA full strength at this time. Cardiology eval ordered. Exam Alert. Comfortable currently Heart irreg and tachy with murmur Lungs diminished I/P 1. Parox a fib - [id number] of 5. Will need anticoagulation but await recommendation of cardiology. Currently on full strength ASA. 2. Acute exac chronic diastolic CHF 3. HTN 4. CKD 3 5. IRVING improving 6. Anemia - unsure of cause (? CKD). Check iron studies and stool guiac. Further diagnoses and plan as above.
--- NOTE | 2017-01-16 14:20 | Electrocardiograph Report ---
[address] [place], [place] [address] Test Date: 2017-01-16 Pat Name: Micaela Byrne Department: 112 Room: 2A Gender: F Manager Support: : 1930 Requested By: Harvinder Martinez Order Number: [id number] Reading MD: Izaiah Rinaldi MD Measurements Intervals Justin Rate: 119 P: MA: 0 QRS: 22 QRSD: 93 T: 64 QT: 316 QTc: 387 Interpretive Statements ATRIAL FIBRILLATION WITH RAPID VENTRICULAR RESPONSE Electronically Signed On 01-16-2017 14:19:38 EDT by Izaiah Rinaldi MD
[2017-01-16] MEDS: *HR* Heparin 5,000 UNIT/ML VIAL SQ SCH (16:59)
[2017-01-17 05:52] LABS: Basophils % 0.2 %; Eosinophils # 0.1 K/mcL (0.0-0.6); Eosinophils % 0.8 %; Hematocrit 23.2 % (35.3-44.9); Hemoglobin 7.3 g/dL (11.5-15.4); Immature Granulocytes % 0.5 % (0-4); Lymphocytes % 16.7 %; Mean Corpuscular HGB Conc 31.5 g/dL (31.6-35.5); Mean Corpuscular Hemoglobin 29.6 pg (28.0-33.3); Mean Corpuscular Volume 93.9 fL (83.0-100.0); Mean Platelet Volume 11.8 fL (9.4-12.4); Monocytes # 0.9 K/mcL (0.0-1.3); Monocytes % 14.9 %; Neutrophils # 4.1 K/mcL (1.6-8.9); Platelet Count 181 K/mcL (140-400); Red Blood Count 2.47 M/mcL (3.82-4.97); Red Cell Distribution Width 13.5 % (11.5-14.5); Segmented Neutrophils % 66.9 %
[2017-01-17 06:06] LABS: Calcium 8.2 mg/dL (8.6-10.8); Magnesium 1.6 mg/dL (1.6-2.6); Potassium 3.6 mEq/L (3.5-4.5)
[2017-01-17] MEDS: *HR* Heparin 5,000 UNIT/ML VIAL SQ SCH (06:19)
[2017-01-17] MEDS: Furosemide 40 MG/4 ML VIAL IVP SCH (08:34)
[2017-01-17] MEDS: Aspirin Enteric Coated 325 MG Tablet PO SCH (08:34)
[2017-01-17] MEDS: Cholecalciferol (D-3) 1,000 UNIT TABLET PO SCH (08:34)
[2017-01-17] MEDS: amLODIPine 5 MG TABLET PO SCH (08:35)
[2017-01-17] MEDS: Metoprolol XL (24 HR) Succ 25 MG TAB.ER.24H PO SCH (08:35)
[2017-01-17] MEDS: hydrALAZINE 25 MG TABLET PO SCH ×2 (08:35→20:30)
[2017-01-17 10:18] LABS: % Iron Saturation 9 % (15-50); Iron 25 mcg/dL (50-170); Transferrin 202 mg/dL (180-382)
[2017-01-17 10:38] LABS: Ferritin 108 ng/ml (5-204)
--- NOTE | 2017-01-17 11:57 | Cardiology Consult Note ---
Date of Encounter: 01/17/17 Time of Encounter: 10:30 Assessment and Plan (1) Acute on chronic diastolic (congestive) heart failure Current Visit: Yes Status: Acute Per cardiology: -Known history of diastolic congestive heart failure. -Recent admission December for above. Patient states she has not been watching fluid intake -Echo 12/25/16 with LVEF 60-65%, Moderate left ventricualr diastolic dysfunction , mild-moderately dilated left atrium, moderately calcified aortic valve leaflets, valve morphology not well visualized, mild aortic stenosis, mild mitral regurigitation, mild tricuspid regurgitation, moderate pulomary hypertension, all wall segments with normal motion. -On lasix 40mg IV BID per primary service. -Net negative 1770ml since admission. -Weight 53kg today, weight November 54kg at PCP, weight 55kg 01/07/17 at cardiology. Daily weights ordered per primary service. Weight now back to baseline. -+1 bilateral lower extremity pitting edema noted. -Unable to add BAILEE-I kidney function. -Will start 1500ml/day fluid restriction. -Will continue to monitor. (COURTNEY) (2) Atrial fibrillation with RVR Current Visit: Yes Status: Acute Per cardioogy: -Admission for diastolic heart failure. Fluid overload. -Patient went into atrial fibrillation with RVR. Patient was placed on cardizem drip per primary service and converted to sinus rhythm yesterday. -Currently on toprol 25mg daily and amlodipine 10mg daily. -Hgb today 7.3. Reviewed HGB for the past year and it appears she is chronically anemic, but currently acute on chronic--has not been as low as today. -Patient states she takes a 325mg asa daily, which has now been stopped per primary service due to worsening anemia. -Denies bleeding, blood loss, or dark stools. -Will discontinue amlodipine and start cardizem 30mg H9ddopo per discussion with Dr.John Norman. -Currently not a candidate for termite treater helper anticoagulation due to worsening anemia. Can consider termite treater helper anticoagulation as outpatient. Would at least recommend ASA 81mg daily once anemia stabilizes/improves. -Discussed risks of atrial fibrillation and no senior living anticoagulation with patient and family and risks of bleeding with adding termite treater helper anticoagulation at this point. Patient and family state understanding. -Will continue to monitor. (COURTNEY) -If rate controlled on short acting cardizem, transition to long acting tomorrow. (3) CKD (chronic kidney disease) stage 3, GFR 30-59 ml/min Current Visit: No Status: Chronic Per cardiology: -Known history of CKD. -Careful diuresis with CKD. -Can consider nephrology consult if creatinine worsens. -Managment per primay service. (COURTNEY) (4) Anemia Current Visit: Yes Status: Chronic Per cardiology: -Known history of anemia, -Hgb today 7.3.--acute on chronic. -Baseline 9-10. -Consider GI evaluation per primary service. (COURTNEY) Qualifiers: Anemia type: unspecified type Qualified Code(s): D64.9 - Anemia, unspecified Discussion w patient/family: The assessment and plan as outlined above was discussed with the patient and/or family members who expressed understanding and agreement. All questions were answered. Thank you for involving us in the care of your patient. Please call with any questions. Patient was seen and examined with JESSE Zhang Discussed and reviewed with Dr.John Norman. History of Present Illness Consult date: 01/17/17 Consult reason: diastolic CHF, a.fib Chief complaint: shortness of breath History of present illness: Ms. Byrne is a 86 year old female with a relevant past medical history of HTN , CKD stage 3, CHF. Patient admitted to [place] for increased shortness of breath , edema, and reported 9 pound weight gain. Patient states she was taking lasix 2omg po daily at home. Pateint states this was not helping her weight gain. Patient was recently seen in cardiology office by after her admission in December 2016 with diastolic heart failure. Patient states breathing today is much better. Patient states swelling today is also better. She states swelling is not back to normal, but it is improving. (COURTNEY) Past Med Surg Social Fam HX - Past Medical History Attestation: Yes The following information was validated with the patient. Source: patient, old records reviewed Medical history: CHF (moderate diastolic dysfunction, EF 60%), hypertension, renal disease (CKD stage III, follows with Dr. Bonilla) Psychiatric history: anxiety, depression - Past Surgical History Surgical History: non-contributory - Social History Smoking Status: Never smoker Smokeless Tobacco Status: No Alcohol use: none Drug use: none - Family History Mother Living Status: Hx Family Cancer: Yes (Leukemia) Father Living Status: Hx Family Cancer: Yes (stomach) Medications and Allergies RX: Amlodipine [Norvasc] 10 mg PO DAILY 12/25/16 [History] RX: Aspirin/Calcium Carbonate/Mag [Aspirin Buffered 325 mg Tab] 325 mg PO DAILY 12/25/16 [History] RX: Cholecalciferol (D-3) [Vitamin D] 1,000 unit PO DAILY 12/25/16 [History] RX: Citalopram [CeleXA] 20 mg PO DAILY 12/25/16 [History] RX: Cyanocobalamin (Vitamin B-12) [Vitamin B-12] 500 mcg PO DAILY 12/25/16 [ History] RX: HydrALAZINE 25 mg PO BID 12/25/16 [History] RX: Metoprolol XL (24 HR) Succ [Toprol Xl] 25 mg PO DAILY 12/25/16 [History] RX: Furosemide [Lasix] 20 mg PO DAILY PRN #30 tablet 12/27/16 [Rx] Allergies meperidine [From Demerol] Allergy (Verified 12/25/16 13:26) Hives iodine Adverse Reaction (Verified 12/25/16 11:34) Nausea All Systems Review: A 10-system review of systems was performed and is negative for pertinent findings except as documented above in the HPI. - Constitutional Constitutional: weight gain - Cardiovascular Cardiovascular: as per HPI, dyspnea on exertion, orthopnea Physical Examination Vital Signs, Last 4 Hours Temp Pulse Resp BP Pulse Ox 01/17/17 11:33 98 01/17/17 11:22 97.9 F 56 18 131/49 98 General: Conversant, No Apparent Distress HEENT: Atraumatic, Normocephaly, Mucus Membranes Moist Neck: No JVD, Normal carotid pulses Cardiac: Reg Rate and Rhythm, Normal S1 and S2, No Murmur Lungs: Normal Breath Sounds, No Wheeze, Rales, Rhonchi Neuro: Alert and responsive, No focal deficits noted Abdomen: Soft, Non-Tender Skin: No rashes noted on visualized skin Musculoskeletal: No Chest Wall Tenderness Extremities: No Clubbing, No Cyanosis, Normal Pulses, Other (1+ bilateral lower extremity pedal edema. ) Results 01/17/17 05:02 01/17/17 05:02 Active Medications Acetaminophen (Tylenol) 650 mg PO Q6HR PRN PRN Reason: Pain Stop: 07/17/17 21:52 Last Admin: 01/15/17 22:09 Dose: 650 mg Amlodipine Besylate (Norvasc) 10 mg PO DAILY [facility] PRN Reason: Protocol Stop: 07/18/17 09:01 Last Admin: 01/17/17 08:35 Dose: Not Given Citalopram Hydrobromide (Celexa) 20 mg PO DAILY [facility] Stop: 07/18/17 09:01 Last Admin: 01/17/17 08:34 Dose: 20 mg Hydralazine HCl (Hydralazine) 25 mg PO BID [facility] Stop: 07/17/17 21:01 Last Admin: 01/17/17 08:35 Dose: Not Given Metoprolol Succinate (Toprol Xl) 25 mg PO DAILY [facility] Stop: 07/18/17 09:01 Last Admin: 01/17/17 08:35 Dose: Not Given Naloxone HCl (Narcan) 0.4 mg IVP Q2MIN PRN PRN Reason: Opioid Reversal Stop: 07/17/17 20:56 Pantoprazole Sodium (Protonix) 40 mg IVP DAILY [facility] Stop: 07/19/17 09:31 Vitamin D (Vitamin D) 1,000 unit PO DAILY [facility] Stop: 07/18/17 09:01 Last Admin: 01/17/17 08:34 Dose: 1,000 unit Laboratory Tests 10/02/16 10/15/16 10/15/16 12:44 09:42 09:42 Hgb 10.0 L Hct Creatinine 1.49 H 1.53 H Troponin I B-Natriuretic Peptide 12/25/16 12/26/16 12/26/16 12:05 00:18 00:18 Hgb 8.9 L Hct Creatinine 1.60 H 1.74 H Troponin I B-Natriuretic Peptide 12/27/16 12/27/16 01/03/17 06:12 06:12 13:58 Hgb 9.2 L Hct Creatinine 1.98 H 2.41 H Troponin I B-Natriuretic Peptide 01/15/17 01/15/17 01/15/17 18:00 18:00 18:00 Hgb 8.8 L Hct 27.8 L Creatinine 1.87 H Troponin I 0.01 B-Natriuretic Peptide 01/15/17 01/15/17 01/16/17 18:00 21:50 06:12 Hgb Hct Creatinine Troponin I 0.01 0.01 B-Natriuretic Peptide 1014 H 01/16/17 01/17/17 01/17/17 13:03 05:02 05:02 Hgb 7.3 L Hct 23.2 L Creatinine 2.20 H Troponin I 0.01 B-Natriuretic Peptide - Imaging and Cardiology Chest Xray: report reviewed Echo: report reviewed - EKG Interpretation EKG results cardiology: personally reviewed (ECG 01/15/17 with Sinus rhythm, HR 67. ECG 01/16/17 with atrial fibrillation with HR 119.) Consult Discharge Plan - Plan Referrals: Prisca Weber, SUPPLIER SPECIALIST [Primary Care Provider] - (web request sent on 01/16/17)
[2017-01-17] MEDS ORDERED: Iron Sucrose Complex 400 MG in 0.9 % Sodium Chloride 250 ML IVPB ONE (13:12)
[2017-01-17] MEDS: Pantoprazole 40 MG VIAL IVP SCH (14:45)
--- NOTE | 2017-01-17 15:33 | Internal Med Progress Note ---
<Randall Xavier - Last Filed: 01/17/17 15:29> Date of Encounter: 01/17/17 Time of Encounter: 15:30 - Assessment and plan (1) Atrial fibrillation with RVR Current Visit: Yes Status: Acute Assessment and plan: Patient presents with new onset atrial fibrillation with rapid ventricular rates around 130. Patient has a recent diagnosis of diastolic heart failure with a recent echocardiogram demonstrated an ejection fraction of 60-65% with diastolic dysfunction of the left ventricle. She was recently evaluated by cardiology in the outpatient setting with her new diagnosis. Recent discontinuation of chlorthalidone, HCTZ. Clinical examination associated with patient history demonstrates a diagnosis of congestive heart failure; patient has orthopnea, diffuse crackles with inspiratory and expiratory effort, bilateral lower extremity edema. - Rate control was attempted with Toprol-XL without significant control. - Blood pressure is in the low 100s systolically. - Appropriate rate control may help cardiac output and pulmonary congestion. 01/17/2017: Patient remains in normal sinus rhythm, blood pressure stable. Plan: - Cardiology involved and is evaluating the patient, starting on Cardizem IV with plans to switch to by mouth Cardizem tomorrow. - We will consult cardiology with new onset atrial fibrillation, recent diagnosis of diastolic heart failure. - Cardiac diet with 2 g sodium restriction, 1500 L fluid restriction. - Daily weights. (2) Acute exacerbation of CHF (congestive heart failure) Current Visit: Yes Status: Acute Assessment and plan: Ms. Byrne demonstrates exacerbation of diastolic heart failure. Recent diagnosis of diastolic heart failure Clinical examination associated with patient history demonstrates a diagnosis of congestive heart failure; patient has orthopnea, diffuse crackles with inspiratory and expiratory effort, bilateral lower extremity edema. Plan: - Hold aspirin with unknown source of anemia. - Management as listed above. Qualifiers: Congestive heart failure type: diastolic Qualified Code(s): I50.33 - Acute on chronic diastolic (congestive) heart failure (3) CKD (chronic kidney disease) stage 3, GFR 30-59 ml/min Current Visit: No Status: Chronic Assessment and plan: Documented history of CKD stage III, patient's primary concrete analyst is Dr. Bonilla. Review of EMR demonstrates creatinine average around 1.5. Creatinine has risen to 2.20, plan to hold diuretics and fluid restrict with diastolic heart failure. Plan: - Hold Lasix as creatinine has continued to rise. - Rate control for atrial fibrillation to improve cardiac output and renal perfusion. - Monitor renal function with a.m. labs. - Renally dose medications/antibiotics and avoid nephrotoxic medications as allowed. (4) Hypertension Current Visit: No Status: Chronic Assessment and plan: Patient is a history of hypertension for which she is currently on hydralazine 25 mg by mouth twice a day, Norvasc 10 mg by mouth daily and Toprol-XL 25 mg by mouth daily at home. - Blood pressure on the lower end of normal. Continue to hold antihypertensives as we improve rate control. Plan: - Hold antihypertensive medications until blood pressure is stable. Qualifiers: Hypertension type: essential hypertension Qualified Code(s): I10 - Essential (primary) hypertension (5) DVT prophylaxis Current Visit: No Status: Acute Assessment and plan: Stop heparin and start SCDs (6) Normocytic anemia Current Visit: Yes Status: Acute Assessment and plan: Patient's hemoglobin has decreased steadily with current hemoglobin 7.3 from 8.0 last evening. Patient denies hemoptysis, dark tarry stools or blood in her stools. Iron studies demonstrate iron deficiency anemia, MCV of 93 may point to a more acute event. I spoke with Dr. Graves with gastroenterology and he informed me that this was an acute event should contact endoscopy for more urgent intervention. If not an urgent matter she can undergo bowel prep on Friday for endoscopy and colonoscopy evaluation. Plan: - Protonix 40 twice a day - Discontinued aspirin, DVT prophylaxis with heparin - Stool occult - Transfuse PRBCs if hemoglobin < 7.0. - Subjective Interval history: Ms. Byrne has been seen and evaluated at patient bedside this morning. She said that her breathing is much improved and she feels ready to be discharged. She denies any weakness, lightheadedness, shortness of breath, dizziness, chest pain, palpitations, abdominal pains, nausea vomiting diarrhea constipation. She does have a cough with sputum production which is clear. I discussed her laboratory findings and her concern for her anemia. She understands and is agreeable to further workup. She became very tearful during this discussion. - Constitutional Vitals: Temp Pulse Resp BP Pulse Ox 97.9 F 56 18 131/49 98 01/17/17 11:22 01/17/17 11:22 01/17/17 11:22 01/17/17 11:22 01/17/17 11:33 General appearance: Present: A&O X 3, pleasant, no acute distress - Head Head exam: Present: atraumatic, normocephalic - Eye Eye exam: Present: PERRL, conjuntiva pink, sclera anicteric - ENT ENT exam: Present: mucous membranes moist - Neck Neck exam general surgery: Present: supple, trachea midline. Absent: lymphadenopathy - Respiratory Respiratory exam: Present: rhonchi. Absent: accessory muscle use, rales, wheezes Additional comments: Bilateral lung bases. - Cardiovascular Cardiovascular exam: Present: RRR, +S1, +S2. Absent: diastolic murmur, gallop, rubs, systolic murmur - GI/Abdominal GI/Abdominal exam: Present: normal bowel sounds, soft, no peritoneal signs. Absent: distended, tenderness - Extremities Exam Extremities exam: Present: pedal edema, warm, radial pulses palpable and symetrical. Absent: calf tenderness, cyanotic - Neurological Exam Neurological exam: Present: alert, oriented X3, no focal deficits. Absent: pronater drift, facial droop, speech deficit - Psychiatric Psychiatric exam: Present: normal affect, normal mood - Skin Skin exam: Present: warm Additional comments: Pale Internal Medicine: Result - Labs CBC & Chem 7: 01/17/17 05:02 01/17/17 05:02 Labs: Short CBC 01/17/17 Range/Units 05:02 WBC 6.1 (4.3-11.1) K/mcL Hgb 7.3 L (11.5-15.4) g/dL Hct 23.2 L (35.3-44.9) % Plt Count 181 (140-400) K/mcL Neutrophils # 4.1 (1.6-8.9) K/mcL BMP 01/17/17 05:02 Sodium 140 Potassium 3.6 Chloride 102 Carbon Dioxide 27 BUN 61 H Creatinine 2.20 H Glucose 99 Calcium 8.2 L - ABG Interpretation ABG results: PT/INR, D-dimer PT 13.2 Seconds (9.4-12.1) H 01/15/17 18:00 Consult Discharge Plan - Plan Referrals: Prisca Weber, [facility] [Primary Care Provider] - (web request sent on 01/16/17) <Harvinder Martinez - Last Filed: 01/17/17 19:14> - Assessment and plan (1) Anemia Current Visit: Yes Status: Suspected Assessment and plan: Iron supplement. Stool guiac. Qualifiers: Anemia type: iron deficiency Iron deficiency anemia type: chronic blood loss Qualified Code(s): D50.0 - Iron deficiency anemia secondary to blood loss (chronic) (2) Acute exacerbation of CHF (congestive heart failure) Current Visit: Yes Status: Acute Qualifiers: Congestive heart failure type: diastolic Qualified Code(s): I50.33 - Acute on chronic diastolic (congestive) heart failure (3) Atrial fibrillation Current Visit: Yes Status: Acute Qualifiers: Atrial fibrillation type: paroxysmal Qualified Code(s): I48.0 - Paroxysmal atrial fibrillation (4) CKD (chronic kidney disease) stage 3, GFR 30-59 ml/min Current Visit: No Status: Chronic (5) Hypertension Current Visit: No Status: Chronic Qualifiers: Hypertension type: essential hypertension Qualified Code(s): I10 - Essential (primary) hypertension (6) Acute kidney failure Current Visit: Yes Status: Resolved Qualifiers: Acute renal failure type: unspecified Qualified Code(s): N17.9 - Acute kidney failure, unspecified - Constitutional Vitals: Temp Pulse Resp BP Pulse Ox 97.9 F 56 18 131/49 98 01/17/17 11:22 01/17/17 11:22 01/17/17 11:22 01/17/17 11:22 01/17/17 11:33 Internal Medicine: Result - Labs CBC & Chem 7: 01/17/17 05:02 01/17/17 05:02 Labs: Short CBC 01/17/17 Range/Units 05:02 WBC 6.1 (4.3-11.1) K/mcL Hgb 7.3 L (11.5-15.4) g/dL Hct 23.2 L (35.3-44.9) % Plt Count 181 (140-400) K/mcL Neutrophils # 4.1 (1.6-8.9) K/mcL BMP 01/17/17 05:02 Sodium 140 Potassium 3.6 Chloride 102 Carbon Dioxide 27 BUN 61 H Creatinine 2.20 H Glucose 99 Calcium 8.2 L - ABG Interpretation ABG results: PT/INR, D-dimer PT 13.2 Seconds (9.4-12.1) H 01/15/17 18:00 - Attending Attestation I examined this patient and my medical decision-making was reviewed with the Resident Physician on 01/17/17. I agree with the documented findings, disposition and treatment plan as described except to the extent set forth below. Ms. Byrne is currently admitted for acute exac chronic diastolic CHF, parox a fib and anemia. She remains moderate to high risk due to potential for worsening anemia and cardiac issues. Ms. Byrne is tearful and wants to go home. She has had no bleeding issues in the past and last colonoscopy many years ago. No abd pain or bowel issues. Remains in sinus rhythm Exam Alert Comfortable. Tearful Heart reg No wheeze No edema I/P 1. Acute exac diastolic CHF 2. Parox a fib - appreciate card eval 3 Anemia - iron deficient Further diagnoses and plan as above.
[2017-01-17] MEDS ORDERED: Magnesium Sulfate 2 GM in D5% in Water 100 ML IVPB ONE (15:46)
--- NOTE | 2017-01-17 16:32 | Electrocardiograph Report ---
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
[2017-01-18 07:27] LABS: Basophils % 0.3 %; Eosinophils % 0.4 %; Hematocrit 27.9 % (35.3-44.9); Hemoglobin 8.5 g/dL (11.5-15.4); Immature Granulocytes % 0.4 % (0-4); Lymphocytes # 1.3 K/mcL (0.6-4.6); Lymphocytes % 17.9 %; Mean Corpuscular HGB Conc 30.5 g/dL (31.6-35.5); Mean Corpuscular Hemoglobin 28.3 pg (28.0-33.3); Mean Platelet Volume 10.9 fL (9.4-12.4); Monocytes % 14.5 %; Neutrophils # 4.7 K/mcL (1.6-8.9); Platelet Count 215 K/mcL (140-400); Red Cell Distribution Width 13.4 % (11.5-14.5); Segmented Neutrophils % 66.5 %
[2017-01-18 07:35] LABS: Magnesium 2.4 mg/dL (1.6-2.6); Potassium 3.8 mEq/L (3.5-4.5)
[2017-01-18] MEDS: Cholecalciferol (D-3) 1,000 UNIT TABLET PO SCH (08:43)
[2017-01-18] MEDS: Metoprolol XL (24 HR) Succ 25 MG TAB.ER.24H PO SCH (08:43)
[2017-01-18] MEDS: Pantoprazole 40 MG VIAL IVP SCH (08:43)
[2017-01-18] MEDS: hydrALAZINE 25 MG TABLET PO SCH (08:43)
--- NOTE | 2017-01-18 11:35 | Cardiology Progress Note ---
Date of Encounter: 01/18/17 Time of Encounter: 11:15 Assessment and Plan (1) Atrial fibrillation with RVR Current Visit: Yes Status: Acute Suspected new onset atrial fibrillation with RVR in the setting of acute diastolic CHF exacerbation. Was briefly on cardizem gtt, converted to NSR. Will change short acting cardizem to 120 LA today. Continue Toprol XL. CHA2Ds Vasc=4 (female, age, HTN); anticoagulation contraindicated with severe anemia, was recently taken off baby asa by PCP due to anemia. She is aware of increased CVA risk. Ideally, she should be on baby asa if can tolerate No further inpatient recommendations, Cardiology will sign-off. Plan communicated with primary team. Follow-up with Dr. Diggs as scheduled. (2) Acute on chronic diastolic (congestive) heart failure Current Visit: Yes Status: Acute Known history of diastolic congestive heart failure. Recent admission December for above. Patient states she has not been watching fluid intake TTE 12/25/16: LVEF 60-65%, moderate LVDD, mild-moderately dilated left atrium, mild /MR/TR/PH, wall segments with normal motion. Recommend transition to oral lasix; appears euvoemic upon exam. Net negative 2850 ml since admission. Blood pressure controlled. Recommend 2L fluid restriction and low sodium diet upon discharge. Close outpatient follow-up with Dr. Diggs as scheduled in February. (3) Anemia Current Visit: Yes Status: Suspected Hx of anemia; no recent GI work-up. H/H improved today after Fe infusion. Recommend outpatient GI work-up; defer further mgmt per primary service. Qualifiers: Anemia type: iron deficiency Iron deficiency anemia type: chronic blood loss Qualified Code(s): D50.0 - Iron deficiency anemia secondary to blood loss (chronic) (4) CKD (chronic kidney disease) stage 3, GFR 30-59 ml/min Current Visit: No Status: Chronic Per cardiology: -Known history of CKD. -Careful diuresis with CKD. -Can consider nephrology consult if creatinine worsens. -Managment per primay service. (COURTNEY) Discussion w patient/family: The assessment and plan as outlined above was discussed with the patient and/or family members who expressed understanding and agreement. All questions were answered. Thank you for involving us in the care of your patient. Please call with any questions. Subjective Principal diagnosis: dCHF, Afib Interval history: Seen and examined. No complaints overnight--she is anxious to go home, is ill. Denies abnormal or unusual bleeding, melena, palpitations, chest pain or discomfort. Objective Vital Signs, Last 4 Hours Temp Pulse Resp BP Pulse Ox 01/18/17 11:00 98.3 F 58 14 127/56 92 L General: Conversant, No Apparent Distress HEENT: Atraumatic, Normocephaly Cardiac: Reg Rate and Rhythm, Normal S1 and S2 Lungs: Normal Breath Sounds Neuro: Alert and responsive Abdomen: Soft Skin: No rashes noted on visualized skin Musculoskeletal: No Chest Wall Tenderness Extremities: No Edema, Normal Pulses Results 01/18/17 07:12 01/18/17 07:12 Lab Results 01/18/17 01/18/17 07:12 07:12 WBC 7.0 Hgb 8.5 L Hct 27.9 L Plt Count 215 Sodium 143 Potassium 3.8 Chloride 104 Carbon Dioxide 27 BUN 56 H Creatinine 1.99 H Glucose 102 H Calcium 9.0 Magnesium 2.4 Active Medications Acetaminophen (Tylenol) 650 mg PO Q6HR PRN PRN Reason: Pain Stop: 07/17/17 21:52 Last Admin: 01/15/17 22:09 Dose: 650 mg Citalopram Hydrobromide (Celexa) 20 mg PO DAILY DESHAUN Stop: 07/18/17 09:01 Last Admin: 01/18/17 08:43 Dose: 20 mg Diltiazem HCl (Cardizem Cd) 120 mg PO DAILY DESHAUN Stop: 07/20/17 14:01 Hydralazine HCl (Hydralazine) 25 mg PO BID DESHAUN Stop: 07/17/17 21:01 Last Admin: 01/18/17 08:43 Dose: 25 mg Metoprolol Succinate (Toprol Xl) 25 mg PO DAILY DESHAUN Stop: 07/18/17 09:01 Last Admin: 01/18/17 08:43 Dose: 25 mg Naloxone HCl (Narcan) 0.4 mg IVP Q2MIN PRN PRN Reason: Opioid Reversal Stop: 07/17/17 20:56 Pantoprazole Sodium (Protonix) 40 mg IVP DAILY DESHAUN Stop: 07/19/17 09:31 Last Admin: 01/18/17 08:43 Dose: 40 mg Vitamin D (Vitamin D) 1,000 unit PO DAILY DESHAUN Stop: 07/18/17 09:01 Last Admin: 01/18/17 08:43 Dose: 1,000 unit - Imaging and Cardiology Echo: report reviewed Other Results: Telemetry: avg HR=64 SR. No significant pause or event noted. - EKG Interpretation EKG results cardiology: personally reviewed Consult Discharge Plan - Plan Instructions: Heart Failure (DC), Atrial Fibrillation (DC), Anemia (GEN) Additional Instructions: Follow-up with her primary care provider in 3-5 days. Discuss GI follow-up if necessary. Take medications as prescribed. Recheck CBC and BMP and 3 days. Follow-up with cardiology as scheduled. Referrals: Prisca Weber CNP [Primary Care Provider] - (web request sent on 01/16/17) Елена Diggs DO [Partnered Physician] - 02/20/17 1:00 pm
--- NOTE | 2017-01-18 11:41 | Discharge Summary ---
<Randall Xavier - Last Filed: 01/18/17 13:06> Date of Encounter: 01/18/17 Time of Encounter: 11:37 - Discharge Diagnosis (1) Atrial fibrillation with RVR Priority: Primary Status: Acute (2) Acute exacerbation of CHF (congestive heart failure) Priority: Primary Status: Acute Qualifiers: Congestive heart failure type: diastolic Qualified Code(s): I50.33 - Acute on chronic diastolic (congestive) heart failure (3) CKD (chronic kidney disease) stage 3, GFR 30-59 ml/min Priority: Secondary Status: Chronic (4) Hypertension Priority: Secondary Status: Chronic Qualifiers: Hypertension type: essential hypertension Qualified Code(s): I10 - Essential (primary) hypertension (5) DVT prophylaxis Priority: Secondary Status: Acute (6) Normocytic anemia Priority: Secondary Status: Acute - Discharge Medications Prescriptions: Ascorbate Calcium [Vitamin C] 500 mg PO BID #60 tablet Aspirin [Lo-Dose Aspirin EC] 81 mg PO DAILY #30 tablet. Calcium/Vit B12/FA/Pyridoxine [Folic Acid-Vit B6-Vit B12 Tab] 1 each PO DAILY # 30 tablet Diltiazem CD (24hr) [Cardizem CD] 120 mg PO DAILY #30 cap.er.24h Ferrous Sulfate [Iron] 325 mg PO BID #60 tablet Furosemide [Lasix] 20 mg PO DAILY #30 tablet Pantoprazole Sodium [Protonix] 20 mg PO DAILY #30 tab Home Medications: Amlodipine [Norvasc] 10 mg PO DAILY 12/25/16 [History] Cholecalciferol (D-3) [Vitamin D] 1,000 unit PO DAILY 12/25/16 [History] Citalopram [CeleXA] 20 mg PO DAILY 12/25/16 [History] Cyanocobalamin (Vitamin B-12) [Vitamin B-12] 500 mcg PO DAILY 12/25/16 [History] HydrALAZINE 25 mg PO BID 12/25/16 [History] Metoprolol XL (24 HR) Succ [Toprol Xl] 25 mg PO DAILY 12/25/16 [History] Ascorbate Calcium [Vitamin C] 500 mg PO BID #60 tablet 01/18/17 [Rx] Aspirin [Lo-Dose Aspirin EC] 81 mg PO DAILY #30 tablet. 01/18/17 [Rx] Calcium/Vit B12/FA/Pyridoxine [Folic Acid-Vit B6-Vit B12 Tab] 1 each PO DAILY # 30 tablet 01/18/17 [Rx] Diltiazem CD (24hr) [Cardizem CD] 120 mg PO DAILY #30 cap.er.24h 01/18/17 [Rx] Ferrous Sulfate [Iron] 325 mg PO BID #60 tablet 01/18/17 [Rx] Furosemide [Lasix] 20 mg PO DAILY #30 tablet 01/18/17 [Rx] Pantoprazole Sodium [Protonix] 20 mg PO DAILY #30 tab 01/18/17 [Rx] Allergies/Adverse Reactions: Allergies meperidine [From Demerol] Allergy (Verified 12/25/16 13:26) Hives iodine Adverse Reaction (Verified 12/25/16 11:34) Nausea Date of admission: 01/16/17 15:48 Primary care physician: Prisca Weber CNP Discharging clinician: Randall Xavier Anticipated date of discharge: 01/18/17 - Patient Status Disposition: Home, Self-Care Condition: Good Functional capacity at discharge: independent ambulation Overall status at discharge: patient is progressing back to baseline - Discharge Instructions Instructions: Heart Failure (DC), Atrial Fibrillation (DC), Anemia (GEN) Follow Up With: Prisca Weber CNP [Primary Care Provider] - 01/21/17 1:00 pm (web request sent on 01/16/17) Елена Diggs DO [Partnered Physician] - 02/20/17 1:00 pm Additional Instructions: Follow-up with her primary care provider in 3-5 days. Discuss GI follow-up if necessary. Take medications as prescribed. Recheck CBC and BMP and 3 days. Follow-up with cardiology as scheduled. - Diet and Activity Activity: increase activity as tolerated Diet: low salt diet (1500 mL fluid restriction daily.) Interval History: Ms. Byrne is a 86 year old female with history of CHF (moderate diastolic dysfunction with LVEF 60% on recent TTE), CKD stage III, and HTN was admitted on 01/15/2017 with acute exacerbation of congestive heart failure with a 9 pound weight gain and new onset atrial fibrillation with RVR. Patient has a recent diagnosis of diastolic heart failure with a recent echocardiogram demonstrated an ejection fraction of 60-65% with diastolic dysfunction of the left ventricle. She was recently evaluated by cardiology in the outpatient setting and discontinuation of chlorthalidone and HCTZ. Upon admission she was started on IV Cardizem with a rapid ventricular rate for rate control. Cardiology was consult and due to the new onset atrial fibrillation and recent diagnosis of diastolic heart failure. With her exacerbation of diastolic heart failure she is continued on aspirin and scheduled IV Lasix 40 mg twice a day. Upon admission she was found to have acute kidney injury on top of stage III chronic kidney disease which is likely secondary to new onset paroxysmal atrial fibrillation and fluid overload. After cardiology evaluation she was started on IV Cardizem for 24 hours prior to starting by mouth Cardizem. Recommended 1500 mL fluid restriction and 2 g sodium restriction daily. Upon further evaluation was found that she had normocytic anemia with trending down hemoglobin over the last several months. Iron studies were collected which demonstrate iron deficiency anemia and she was provided IV iron. Concern given the decrease in hemoglobin was 4 possible low-grade GI bleeding but no signs of active bleeding. Hemoglobin following morning was stable. Prior to discharge on 01/18/2017 I had discussion with Mrs. Byrne regarding 1500 mL fluid restriction, low sodium diet and taking her new prescribed medications as scheduled. I recommend follow-up with her primary care provider with a repeat CBC and BMP in 3 days to evaluate whether she has decreased hemoglobin level and evaluate renal function after discharge as her creatinine is improving. If no improvement in patient's hemoglobin she may need upper endoscopy/colonoscopy for evaluation. She is prescribed by mouth iron after receiving IV iron in the hospital and provided vitamin with B12, folate to stimulate marrow production. She is provided vitamin C prescription to take with iron tablets. She is also provided by mouth Protonix. She is provided a prescription for Cardizem to take by mouth daily. She was deemed stable for discharge with close follow-up with her PCP and cardiology as recommended. Hospital course: Ms. Byrne is a 86 year old female - Time Spent with Patient Total time spent providing and/or coordinating discharge services: - Constitutional Vitals: Temp Pulse Resp BP Pulse Ox 98.3 F 58 14 127/56 92 L 01/18/17 11:00 01/18/17 11:00 01/18/17 11:00 01/18/17 11:01/18/17 11:00 General appearance: Present: A&O X 3, pleasant, no acute distress - Head Head exam: Present: atraumatic, normocephalic - Eye Eye exam: Present: PERRL, conjuntiva pink, sclera anicteric Pupils: Present: PERRL - ENT ENT exam: Present: mucous membranes moist - Neck Neck exam general surgery: Present: supple, trachea midline. Absent: lymphadenopathy - Respiratory Additional comments: Trace crackle in the lower right lung base all the lung fuentes clear to auscultation - Cardiovascular Cardiovascular exam: Present: RRR, +S1, +S2, systolic murmur (Grade 3/6 systolic ejection murmur). Absent: diastolic murmur, gallop, rubs - GI/Abdominal GI/Abdominal exam: Present: normal bowel sounds, soft, no peritoneal signs. Absent: distended, tenderness - Extremities Exam Extremities exam: Present: pedal edema (Trace), warm, radial pulses palpable and symetrical. Absent: calf tenderness, cyanotic - Neurological Exam Neurological exam: Present: alert, oriented X3, no focal deficits. Absent: pronater drift, facial droop, speech deficit - Psychiatric Psychiatric exam: Present: normal affect, normal mood - Skin Skin exam: Present: dry, intact <Harvinder Martinez - Last Filed: 01/18/17 16:24> - Discharge Diagnosis (1) Acute exacerbation of CHF (congestive heart failure) Status: Acute Qualifiers: Congestive heart failure type: diastolic Qualified Code(s): I50.33 - Acute on chronic diastolic (congestive) heart failure (2) Atrial fibrillation Priority: Secondary Status: Acute Qualifiers: Atrial fibrillation type: paroxysmal Qualified Code(s): I48.0 - Paroxysmal atrial fibrillation (3) Anemia Priority: Secondary Status: Suspected Qualifiers: Anemia type: iron deficiency Iron deficiency anemia type: chronic blood loss Qualified Code(s): D50.0 - Iron deficiency anemia secondary to blood loss (chronic) (4) CKD (chronic kidney disease) stage 3, GFR 30-59 ml/min Status: Chronic (5) Hypertension Status: Chronic Qualifiers: Hypertension type: essential hypertension Qualified Code(s): I10 - Essential (primary) hypertension (6) Acute kidney failure Priority: Secondary Status: Resolved Qualifiers: Acute renal failure type: unspecified Qualified Code(s): N17.9 - Acute kidney failure, unspecified Date of admission: 01/16/17 15:48 Primary care physician: Prisca Weber CNP Hospital course: Ms. Byrne is a 86 year old female - Time Spent with Patient Total time spent providing and/or coordinating discharge services: 38min - Constitutional Vitals: Temp Pulse Resp BP Pulse Ox 98.3 F 66 14 148/66 92 L 01/18/17 11:00 01/18/17 13:50 01/18/17 11:00 01/18/17 13:50 01/18/17 11:00 - Attending Attestation I examined this patient and my medical decision-making was reviewed with the Resident Physician on 01/18/17. I agree with the documented findings, disposition and treatment plan as described except to the extent set forth below. Ms. Byrne feels OK today. She does not want to stay for GI work up. Her H/H improved overnight. It is now near recent baseline. No bleeding noted. She has been afebrile and vitals have been stable. Exam Alert. Pleasant. Heart reg Lungs clear I/P 1. CHF 2. Parox a fib Further diagnoses and plan as above.
[2017-01-18 13:51] VITALS: BP 148/66
[2017-01-18] MEDS ORDERED: Diltiazem CD (24hr) 120 MG CAPSULE PO SCH (14:00)
== END 2017-01-18 14:35 | disposition home or self-care (01) | DRG 291 ==
LOC: 2ANU 17:19 → EMEROO 17:19 → SUATTDRO 19:32 → 2ANU 20:11
PROVIDERS: ADMIT Internal Medicine; ATTEND Internal Medicine

== ENCOUNTER 2017-05-13 09:26 | Inpatient (IN) ==
[2017-05-13] MEDS ORDERED: Vancomycin 1,000 MG in D5% in Water 250 ML IVPB ONE (09:42)
[2017-05-13] MEDS ORDERED: Piperacillin/Tazobactam 4.5 GM in D5% in Water (Mini-Bag+) 100 ML IVPB ONE (09:42)
[2017-05-13 10:06] LABS: Basophils % 0.2 %; Eosinophils % 0.2 %; Hemoglobin 11.3 g/dL (11.5-15.4); Immature Granulocytes % 0.4 % (0-4); Lymphocytes # 1.5 K/mcL (0.6-4.6); Lymphocytes % 18.5 %; Mean Corpuscular HGB Conc 31.4 g/dL (31.6-35.5); Mean Corpuscular Hemoglobin 29.6 pg (28.0-33.3); Mean Corpuscular Volume 94.2 fL (83.0-100.0); Monocytes # 1.1 K/mcL (0.0-1.3); Monocytes % 13.9 %; Neutrophils # 5.4 K/mcL (1.6-8.9); Platelet Count 140 K/mcL (140-400); Red Blood Count 3.82 M/mcL (3.82-4.97); Red Cell Distribution Width 16.6 % (11.5-14.5); Segmented Neutrophils % 66.8 %
[2017-05-13] MEDS: Tdap (Boostrix) Vaccine 0.5 ML SYRINGE IM ONE ×2 (10:08→10:12)
[2017-05-13 10:21] LABS: Albumin 3.6 g/dL (3.5-5.0); Albumin/Globulin Ratio 0.9 (1.1-2.2); Bilirubin,Total 0.5 mg/dL (0.2-1.2); Calcium 9.7 mg/dL (8.6-10.8); Potassium 4.4 mEq/L (3.5-4.5); Total Protein 7.6 g/dL (6.0-8.3)
[2017-05-13] MEDS ORDERED: *HR* HYDROmorphone (PF) 1 MG/ML SYRINGE IVP ONE (10:35)
[2017-05-13] MEDS ORDERED: *HR* HYDROmorphone (PF) 1 MG/ML SYRINGE ONE (10:36)
[2017-05-13] MEDS ORDERED: MetroNIDAZOLE 500 MG/100 ML 500 MG/100 ML BAG IVPB ONE (11:00)
[2017-05-13] MEDS ORDERED: Cefepime HCl 2,000 MG in D5% in Water (Mini-Bag+) 100 ML IVPB ONE (11:00)
[2017-05-13] MEDS ORDERED: *HR* Morphine 2 MG/ML SYRINGE IVP PRN (12:48)
[2017-05-13] MEDS ORDERED: Naloxone 0.4 MG/ML INJ IVP PRN (12:48)
[2017-05-13] MEDS ORDERED: Ondansetron 4 MG/2 ML VIAL IVP PRN (12:48)
[2017-05-13] MEDS ORDERED: Acetaminophen 325 MG TABLET PO PRN (12:48)
--- NOTE | 2017-05-13 12:52 | Internal Med History&Physical ---
Date of Encounter: 05/13/17 Time of Encounter: 12:52 Assessment and Plan (1) Cellulitis Current visit: Yes Status: Acute Secondary to cat bite. X-ray right hand shows no osseous abnormality, shows diffuse soft tissue swelling on dorsum and fingers. Orthopedic surgery consulted by ER physician, recommend clinical monitoring and IV antibiotics. Infectious diseases consulted due to noted itching with IV penicillin in the emergency room. Consult appreciated, recommend IV Rocephin and Flagyl at this time. Check ESR, CRP-noted to be elevated. Right hand elevation, cold packs, supportive care. Qualifiers: Site of cellulitis: extremity Site of cellulitis of extremity: upper extremity Laterality: right Qualified Code(s): L03.113 - Cellulitis of right upper limb (2) Cat bite of right wrist Current visit: Yes Status: Acute Received DTaP vaccine. Continue IV antibiotics and supportive care. Qualifiers: Encounter type: initial encounter Qualified Code(s): S61.551A - Open bite of right wrist, initial encounter; W55.01XA - Bitten by cat, initial encounter (3) Essential hypertension Current visit: Yes Status: Chronic Blood pressure noted to be elevated in the emergency room, systolic blood pressure in the 190s. Patient is noted to be on multiple blood pressure medications, restart with first dose now. (4) CHF (congestive heart failure) Current visit: Yes Status: Chronic Qualifiers: Congestive heart failure type: diastolic Congestive heart failure chronicity: chronic Qualified Code(s): I50.32 - Chronic diastolic (congestive ) heart failure (5) CKD (chronic kidney disease) stage 3, GFR 30-59 ml/min Current visit: Yes Status: Chronic Serum creatinine noted to be at baseline. Continue to monitor. (6) Atrial fibrillation Current visit: Yes Status: Chronic Currently rate controlled. Continue beta owen. Not on chronic anticoagulation due to underlying anemia, receives when necessary IV iron and daily oral ferrous sulfate supplements. Qualifiers: Atrial fibrillation type: paroxysmal Qualified Code(s): I48.0 - Paroxysmal atrial fibrillation (7) Anemia Current visit: Yes Status: Chronic Qualifiers: Anemia type: iron deficiency Iron deficiency anemia type: chronic blood loss Qualified Code(s): D50.0 - Iron deficiency anemia secondary to blood loss (chronic) Internal Medicine - H&P: HPI Chief complaint: Right hand pain and swelling Admitted From: Emergency Dept Plans for Post Hospital Care: Home History of present illness: Ms. Byrne is a 86 year old female with h/o- CHF, a.fib, presenting with c/o- right hand pain and swelling. She was feeding a stray cat about 2 days back, when she dropped yogurt on her right hand and got bitten by the cat. She presented to Urgent Care after the event and was discharged on Augmentin, which she has been using, with no improvement but significant worsening in pain, swelling and redness of right hand. She is unable to make a fist or flex her right hand fingers completely. Reports subjective fever last night but no nausea, vomiting. No diarrhea, abdominal pain or any other complaints. Past Med Surg Social Fam HX - Past Medical History Medical history: atrial fibrillation, CHF, COPD, hypertension, renal disease Psychiatric history: anxiety, depression - Past Surgical History Surgical History: herniorrhaphy, hysterectomy, orthopedic, other - Social History Smoking Status: Never smoker Smokeless Tobacco Status: No Alcohol use: none Drug use: none Current living situation: Home, With Family Activity Level: Independent ambulation Recent Out of Country Travel Within the Last 8 Weeks: No - Family History Mother Living Status: Hx Family Cancer: Yes (Leukemia) Father Living Status: Hx Family Cancer: Yes (stomach) Internal Medicine - H&P: Meds Cholecalciferol (D-3) [Vitamin D] 1,000 unit PO DAILY 12/25/16 [History] Citalopram [CeleXA] 20 mg PO DAILY 12/25/16 [History] Cyanocobalamin (Vitamin B-12) [Vitamin B-12] 500 mcg PO DAILY 12/25/16 [History] Metoprolol XL (24 HR) Succ [Toprol Xl] 25 mg PO DAILY 12/25/16 [History] hydrALAZINE [HydrALAZINE] 25 mg PO BID 12/25/16 [History] Ascorbate Calcium [Vitamin C] 500 mg PO BID #60 tablet 01/18/17 [Rx] Aspirin [Lo-Dose Aspirin EC] 81 mg PO DAILY #30 tablet. 01/18/17 [Rx] Calcium/Vit B12/FA/Pyridoxine [Folic Acid-Vit B6-Vit B12 Tab] 1 each PO DAILY # 30 tablet 01/18/17 [Rx] Ferrous Sulfate [Iron] 325 mg PO BID #60 tablet 01/18/17 [Rx] Furosemide [Lasix] 20 mg PO DAILY #30 tablet 01/18/17 [Rx] Pantoprazole Sodium [Protonix] 20 mg PO DAILY #30 tab 01/18/17 [Rx] Amoxicillin/Clavulanate [Augmentin] 875 mg PO BID #20 tablet 05/10/17 [Rx] Hydrochlorothiazide [Microzide] 12.5 mg PO DAILY 05/13/17 [History] Losartan Potassium [Cozaar] 50 mg PO DAILY 05/13/17 [History] Oxycodone HCl/Acetaminophen [Percocet 5-325 mg Tablet] 1 tab PO BID PRN [History] Allergies meperidine [From Demerol] Allergy (Verified 05/13/17 09:29) Hives piperacillin [From Zosyn] Allergy (Verified 05/13/17 11:07) Itching tazobactam [From Zosyn] Allergy (Verified 05/13/17 11:07) Itching iodine Adverse Reaction (Verified 05/13/17 09:29) Nausea All Systems PM: A 10-system review of systems was performed and is negative for pertinent findings except as documented above in the HPI. - Constitutional Constitutional: fever(s), malaise, no chills, no night sweats - EENT Eyes: no change in vision, no discharge, no pain, no photophobia Ears: no ear discharge, no ear pain, no tinnitus Nose, mouth and throat: no dysphagia, no nasal discharge, no neck pain, no sore throat - Cardiovascular Cardiovascular ROS IM: no chest pain, no diaphoresis, no dyspnea, no lightheadedness, no palpitations, no syncope - Respiratory Respiratory: no cough, no dyspnea, no wheezing, no excessive phlegm production - Gastrointestinal Gastrointestinal: no abdominal pain, no diarrhea, no hematemesis, no hematochezia, no melena, no nausea, no vomiting - Genitourinary Genitourinary: no change in urinary stream, no dysuria, no flank pain, no hematuria - Musculoskeletal Musculoskeletal ROS IM: no numbness, no tingling - Integumentary Integumentary IM: as per HPI, erythema, new lesions - Neurological Neurological ROS: no confusion, no convulsions, no focal weakness, no numbness, no tingling, no tremor(s) - Hematologic/Lymphatic Hematologic/Lymphatic: no easy bruising - Constitutional Vitals: Temp Pulse Resp BP Pulse Ox 98.0 F 62 16 192/54 96 05/13/17 12:17 05/13/17 12:17 05/13/17 12:17 05/13/17 12:05/13/17 12:17 General appearance: Present: A&O X 3 (Appears tired and weak), answers questions appropriately - Respiratory Respiratory exam: Present: CTAB. Absent: accessory muscle use, rales, rhonchi, wheezes - Cardiovascular Cardiovascular exam: Present: irregular rhythm, +S1, +S2, systolic murmur. Absent: diastolic murmur, gallop, rubs - GI/Abdominal GI/Abdominal exam: Present: normal bowel sounds, soft, no peritoneal signs. Absent: distended, tenderness - Extremities Exam Extremities exam: Present: full ROM, warm, radial pulses palpable and symetrical. Absent: calf tenderness, cyanotic, pedal edema Additional comments: Right upper extremity-diffuse swelling of right dorsum and all 5 fingers with erythema and tenderness. Radial pulse 2+ palpable. Restricted range of motion with finger flexion - Neurological Exam Neurological exam: Present: CN II-XII intact, oriented X3, no focal deficits. Absent: pronater drift, facial droop, speech deficit - Skin Skin exam: Present: dry, intact Internal Med - H&P Results - Labs CBC & Chem 7: 05/13/17 09:57 05/13/17 09:57
[2017-05-13] MEDS ORDERED: 0.9 % Sodium Chloride 1,000 ML IVC SCH (13:00)
[2017-05-13] MEDS: Metoprolol XL (24 HR) Succ 25 MG TAB.ER.24H PO SCH (13:09)
[2017-05-13] MEDS: Ascorbic Acid 500 MG TABLET PO SCH ×2 (13:09→20:27)
[2017-05-13] MEDS: Aspirin Enteric Coated 81 MG Tablet PO SCH (13:10)
[2017-05-13] MEDS: hydroCHLOROthiazide 25 MG TABLET PO SCH (13:10)
--- NOTE | 2017-05-13 13:38 | Infectious Disease Consult ---
Date of Encounter: 05/13/17 Time of Encounter: 13:36 Assessment and Plan (1) Cellulitis Status: Acute Assessment and plan: Location: Right hand, wrist, and forearm. Causative organism unclear. Secondary to cat bite sustained 05/10/17. Failed outpatient oral antibiotic therapy (Augmentin). X-ray of the right hand shows soft tissue swelling without osseous abnormalities. Ortho has been consulted. Await their recommendations. Check ESR and CRP. Add to labs done today. Received Zosyn in the ER that resulted in diffuse itching, but no rash or hives. Discontinue cefepime. Start Rocephin 1 gram IV daily. Continue flagyl 500mg Q8H, but switch to PO as the oral formulation has excellent bioavailability. Consider additional imaging to rule in/out additional infectious etiologies since the patient failed oral antibiotics. Duration of treatment depends on the clinical picture. Qualifiers: Site of cellulitis: extremity Site of cellulitis of extremity: upper extremity Laterality: right Qualified Code(s): L03.113 - Cellulitis of right upper limb (2) Cat bite of right wrist Status: Acute Assessment and plan: Location: Right wrist. Patient states that cat was hers, but is not up-to-date on his vaccinations. Received Tdap at Urgent Care on Friday. Qualifiers: Encounter type: initial encounter Qualified Code(s): S61.551A - Open bite of right wrist, initial encounter; W55.01XA - Bitten by cat, initial encounter (3) CKD (chronic kidney disease) stage 3, GFR 30-59 ml/min Status: Chronic Assessment and plan: Serum creatinine elevated at 1.52 on arrival, but appears close to baseline. Monitor closely and dose-adjust medications as appropriate. Rocephin does not require dose-adjustment for decreased CrCl. (4) HTN (hypertension) Status: Chronic Qualifiers: Hypertension type: unspecified Qualified Code(s): I10 - Essential (primary ) hypertension Infectious Disease HPI - Data of Consult Patient: new to practice Consult date: 05/13/17 Requesting Physician: Viola Zazueta CNP Primary Care Provider: Prisca Weber CNP - Consult Narrative Reason for consult: Right hand cellulitis History of present illness: Ms. Byrne is a 86 year old female with a past medical history of CHF, a-fib, CKD, anxiety, and depression. The patient was admitted to the hospital 05/13/17 for right hand cellulitis. We are consulted 05/13/14 for further evaluation and treatment recommendations regarding right hand cellulitis. The patient is an 86-year-old female with a past medical history as stated above. The patient sustained a cat bite to the right wrist on Friday from one of her outside cats. She states the wrist became red and swollen and more painful throughout the day so she went to Urgent Care. She received a Tdap injection and a prescription for Augmentin, which she took as prescribed. She states she has had worsening pain, swelling, and redness since then and came to the ER. Upon presentation, the patient was afebrile and hemodynamically stable. Her labs revealed a normal WBC and a serum creatinine that is elevated, but at baseline. A right hand x-ray showed soft tissue swelling without osseous abnormality. The patient was started on Zosyn in the ER, but had diffuse itching without rash or hives and the medication was stopped. She was started on IV Cefepime and Flagyl and admitted to the hospital for further evaluation. I was contacted by the ER physician to discuss the case and requested consultation. Additionally, orthopedics has been consulted as well. During my exam today, the patient endorses the history as stated above. She reports subjective fevers and chills and overall malaise. She states she has had a poor appetite as well. She reports a headache earlier today, but denies neck pain or stiffness. She denies congestion, earache, or sore throat. She denies chest pain, shortness of breath, or cough. She denies nausea, vomiting, diarrhea, or constipation. She denies abdominal pain or urinary complaints. She denies pain in her other extremities or back. She states the pain in her right hand is 7/10 and radiates from the hand up into the top of the forearm, just distal to the elbow. She states the puncture wounds have been scabbed over and have not been draining. She states the pain, redness, and swelling have worsened since the onset of the injury. She denies any oral thrush or other skin lesions. The patient lives at home with her . She denies having diabetes. She denies alcohol, tobacco, or illicit drug use. CC: Viola Zazueta CNP Past Med Surg Social Fam HX - Past Medical History Attestation: Yes The following information was validated with the patient. Source: patient, old records reviewed, nursing notes reviewed Medical history: atrial fibrillation, CHF, COPD, hypertension, renal disease Psychiatric history: anxiety, depression - Past Surgical History Surgical History: herniorrhaphy, hysterectomy, knee replacement - Social History Smoking Status: Never smoker Smokeless Tobacco Status: No Alcohol use: none Drug use: none Occupational status: unemployed Current living situation: Home - Independent Activity Level: Independent ambulation Recent Out of Country Travel Within the Last 8 Weeks: No Exposure or Possible Exposure to Illness During Travel: No - Family History Mother Living Status: Hx Family Cancer: Yes (Leukemia) Father Living Status: Hx Family Cancer: Yes (stomach) Infectious Disease-CN:Meds Cholecalciferol (D-3) [Vitamin D] 1,000 unit PO DAILY 12/25/16 [History] Citalopram [CeleXA] 20 mg PO DAILY 12/25/16 [History] Cyanocobalamin (Vitamin B-12) [Vitamin B-12] 500 mcg PO DAILY 12/25/16 [History] Metoprolol XL (24 HR) Succ [Toprol Xl] 25 mg PO DAILY 12/25/16 [History] hydrALAZINE [HydrALAZINE] 25 mg PO BID 12/25/16 [History] Ascorbate Calcium [Vitamin C] 500 mg PO BID #60 tablet 01/18/17 [Rx] Aspirin [Lo-Dose Aspirin EC] 81 mg PO DAILY #30 tablet. 01/18/17 [Rx] Calcium/Vit B12/FA/Pyridoxine [Folic Acid-Vit B6-Vit B12 Tab] 1 each PO DAILY # 30 tablet 01/18/17 [Rx] Ferrous Sulfate [Iron] 325 mg PO BID #60 tablet 01/18/17 [Rx] Furosemide [Lasix] 20 mg PO DAILY #30 tablet 01/18/17 [Rx] Pantoprazole Sodium [Protonix] 20 mg PO DAILY #30 tab 01/18/17 [Rx] Amoxicillin/Clavulanate [Augmentin] 875 mg PO BID #20 tablet 05/10/17 [Rx] Hydrochlorothiazide [Microzide] 12.5 mg PO DAILY 05/13/17 [History] Losartan Potassium [Cozaar] 50 mg PO DAILY 05/13/17 [History] Oxycodone HCl/Acetaminophen [Percocet 5-325 mg Tablet] 1 tab PO BID PRN [History] Allergies meperidine [From Demerol] Allergy (Verified 05/13/17 09:29) Hives piperacillin [From Zosyn] Allergy (Verified 05/13/17 11:07) Itching tazobactam [From Zosyn] Allergy (Verified 05/13/17 11:07) Itching iodine Adverse Reaction (Verified 05/13/17 09:29) Nausea All systems: reviewed and no additional remarkable complaints except as stated Exam - Constitutional Vitals: Temp Pulse Resp BP Pulse Ox 98.0 F 62 16 192/54 96 05/13/17 12:17 05/13/17 12:17 05/13/17 12:17 05/13/17 12:17 05/13/17 12:17 General appearance: average body habitus, cooperative, no acute distress - Head Head exam: Present: atraumatic, normal inspection, normocephalic - Eye Eye exam: Present: EOMI, normal appearance, PERRL Pupils: Present: normal accommodation - ENT ENT exam: Present: mucous membranes moist - Neck Neck exam: Present: normal inspection - Respiratory Respiratory exam: Present: CTAB. Absent: rales, respiratory distress, rhonchi, wheezes - Cardiovascular Cardiovascular exam: Present: irregular rhythm. Absent: tachycardia - GI/Abdominal GI/Abdominal exam: Present: normal bowel sounds, soft. Absent: distended, tenderness - Expanded Upper Extremity Exam Forearm wrist exam: Present: erythema (right wrist/forearm), swelling (right wrist/forearm), tenderness (right wrist/forearm) Hand wrist exam: Present: erythema (Right), swelling (right hand). Absent: full ROM (right hand ROM limited) Hand L/R front image: 1 - Erythematous, edematous, tender, warm Hand L/R back image: 1 - Erythematous, edematous, warm, tender 2 - Puncture wounds x 2, scabbed over, no drainage. - Neurological Exam Neurological exam: Present: alert, oriented X3, no focal deficits - Psychiatric Psychiatric exam: Present: normal affect, normal mood - Skin Skin exam: Present: dry, intact, normal color, warm Infectious Disease CN: Results - Labs CBC & Chem 7: 05/13/17 09:57 05/13/17 09:57 Consult Discharge Plan - Plan Referrals: Prisca Weber, RAIL TECHNICIAN [Primary Care Provider] -
[2017-05-13] MEDS ORDERED: Cefepime HCl 1,000 MG in D5% in Water (Mini-Bag+) 100 ML IVPB SCH (16:00)
[2017-05-13] MEDS: MetroNIDAZOLE 500 MG/100 ML 500 MG/100 ML BAG IVPB SCH ×2 (17:22→23:53)
--- NOTE | 2017-05-13 17:29 | Emergency Department Note ---
Disposition Clinical Impression: Cat bite Disposition: Admitted As Inpatient Condition: Fair General Adult HPI - General Chief complaint: ED Animal Bite Stated complaint: Cat Bite Source: patient Limitations: no limitations Nursing Notes Reviewed: Yes Vital Signs Reviewed: Yes - History of Present Illness HPI Narrative: 86-year-old female who presents with concern for a cat bite to the right hand. She actually was petting a stray cat and put yogurt onto her hand so that the cat could eat because she felt it was sick and the cat bit her on the right wrist. She has resulting fusiform swelling to the hand and concern for cellulitis. She was previously on Augmentin which was placed by her primary care physician. She has no fever or chills. She has normal neurovascular examination but she has pain over the right hand. Pain Scale: 3 - Related Data Home Medications Medication Instructions Recorded Confirmed Cholecalciferol (D-3) [Vitamin D] 1,000 unit PO DAILY 12/25/16 05/13/17 Citalopram [CeleXA] 20 mg PO DAILY 12/25/16 05/13/17 Cyanocobalamin (Vitamin B-12) 500 mcg PO DAILY 12/25/16 05/13/17 [Vitamin B-12] Metoprolol XL (24 HR) Succ [Toprol 25 mg PO DAILY 12/25/16 05/13/17 Xl] hydrALAZINE [HydrALAZINE] 25 mg PO BID 12/25/16 05/13/17 Hydrochlorothiazide [Microzide] 12.5 mg PO DAILY 05/13/17 05/13/17 Losartan Potassium [Cozaar] 50 mg PO DAILY 05/13/17 05/13/17 Oxycodone HCl/Acetaminophen 1 tab PO BID PRN 05/13/17 05/13/17 [Percocet 5-325 mg Tablet] Previous Rx's Medication Instructions Recorded Ascorbate Calcium [Vitamin C] 500 mg PO BID #60 tablet 01/18/17 Aspirin [Lo-Dose Aspirin EC] 81 mg PO DAILY #30 tablet. 01/18/17 Calcium/Vit B12/FA/Pyridoxine 1 each PO DAILY #30 tablet 01/18/17 [Folic Acid-Vit B6-Vit B12 Tab] Ferrous Sulfate [Iron] 325 mg PO BID #60 tablet 01/18/17 Furosemide [Lasix] 20 mg PO DAILY #30 tablet 01/18/17 Pantoprazole Sodium [Protonix] 20 mg PO DAILY #30 tab 01/18/17 Amoxicillin/Clavulanate [Augmentin] 875 mg PO BID #20 tablet 05/10/17 Allergies Allergy/AdvReac Type Severity Reaction Status Date / Time meperidine [From Demerol] Allergy Hives Verified 05/13/17 09:29 piperacillin [From Zosyn] Allergy Itching Verified 05/13/17 11:07 tazobactam [From Zosyn] Allergy Itching Verified 05/13/17 11:07 iodine AdvReac Nausea Verified 05/13/17 09:29 All systems ED: reviewed and negative except as stated. 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 - Social History Smoking Status: Never smoker Smokeless Tobacco Status: No Alcohol use: Reports: none Drug use: Reports: none Physical Exam - General Limitations: no limitations General appearance: alert - Head Head exam: atraumatic - Eye Eye exam: Present: normal appearance - ENT ENT exam: normal exam, normal oropharynx - Neck Neck exam: Present: normal inspection, full ROM - Chest Chest inspection: Present: normal inspection - Cardiovascular Cardiovascular exam: Present: regular rate, normal rhythm - Abdominal Exam Abdominal exam: Present: soft, Non-Tender - Extremities Exam Extremities exam: Present: tenderness, joint swelling - Expanded Lower Extremity Exam Neurovascular/Tendon exam: Present: normal capillary refill. Absent: pulse deficit, motor deficit Gait: observed and normal - Back Exam Back exam: Present: normal inspection, full ROM - Neurological Exam Neurological exam: Present: alert, oriented X3, CN II-XII intact - Psychiatric Psychiatric exam: Present: normal affect, normal mood - Skin Skin exam: Present: warm, dry Course Vital Signs Temperature 98.2 F 05/13/17 09:29 Pulse Rate 59 05/13/17 09:29 Respiratory Rate 20 05/13/17 09:29 Blood Pressure 194/79 05/13/17 09:29 O2 Sat by Pulse Oximetry 98 05/13/17 09:29 Temperature 98.1 F 05/13/17 16:19 Pulse Rate 51 05/13/17 16:19 Respiratory Rate 16 05/13/17 16:19 Blood Pressure 132/52 05/13/17 16:19 O2 Sat by Pulse Oximetry 95 05/13/17 16:19 Oxygen Delivery Oxygen Delivery Nasal Cannula Medical Decision Making - MDM Narrative Medical decision making narrative: Female patient with concern for extensive cellulitis relating to Light. Ultimately she has an x-ray that shows soft tissue swelling. There is no evidence of osteomyelitis. She did have a allergic reaction to the Zosyn which is a leverman in the emergency department. She was given Benadryl. She ultimately was switched to Flagyl and cefepime at the request of her infectious disease team. She will be managed by hospitalist service. Orthopedics was available at the bedside for consultation. They do not feel the need for incision and drainage at this time. We will proceed with admission for IV antibiotic administration. - Medical Records Medical records reviewed: Yes I reviewed the patient's medical records. - Lab Data Lab results reviewed: Yes I reviewed the patient's lab results. Result diagrams: 05/13/17 09:57 05/13/17 09:57 Lab Results 05/13/17 05/13/17 05/13/17 Range/Units 09:57 09:57 09:57 WBC 8.1 (4.3-11.1) K/mcL RBC 3.82 (3.82-4.97) M/mcL Hgb 11.3 L (11.5-15.4) g/dL Hct 36.0 (35.3-44.9) % MCV 94.2 (83.0-100.0) fL MCH 29.6 (28.0-33.3) pg MCHC 31.4 L (31.6-35.5) g/dL RDW 16.6 H (11.5-14.5) % Plt Count 140 (140-400) K/mcL MPV 11.0 (9.4-12.4) fL Immature Gran % 0.4 (0-4) % Seg Neutrophils % 66.8 % Lymphocytes % 18.5 % Monocytes % 13.9 % Eosinophils % 0.2 % Basophils % 0.2 % Neutrophils # 5.4 (1.6-8.9) K/mcL Lymphocytes # 1.5 (0.6-4.6) K/mcL Monocytes # 1.1 (0.0-1.3) K/mcL Eosinophils # 0.0 (0.0-0.6) K/mcL Basophils # 0.0 (0.0-0.2) K/mcL ESR 97 H (0-15) mm/hr Sodium 137 (136-145) mEq/L Potassium 4.4 (3.5-4.5) mEq/L Chloride 103 (98-109) mEq/L Carbon Dioxide 27 (19-29) mEq/L BUN 35 H (7-20) mg/dL Creatinine 1.52 H (0.57-1.11) mg/dL Est GFR ( Amer) 39 L (> 60) Est GFR (Non-Af Amer) 32 L (> 60) BUN/Creatinine Ratio 23 (6-26) Glucose 97 (70-99) mg/dL Calculated Osmolality 292 (280-300) Calcium 9.7 (8.6-10.8) mg/dL Total Bilirubin 0.5 (0.2-1.2) mg/dL AST 17 (5-34) Units/L ALT 10 (0-55) Units/L Alkaline Phosphatase 46 (38-126) Units/L C-Reactive Protein (Less than 5) mg/L Serum Total Protein 7.6 (6.0-8.3) g/dL Albumin 3.6 (3.5-5.0) g/dL Globulin 4.0 H (2.4-3.5) g/dL Albumin/Globulin Ratio 0.9 L (1.1-2.2) 05/13/17 Range/Units 09:57 WBC (4.3-11.1) K/mcL RBC (3.82-4.97) M/mcL Hgb (11.5-15.4) g/dL Hct (35.3-44.9) % MCV (83.0-100.0) fL MCH (28.0-33.3) pg MCHC (31.6-35.5) g/dL RDW (11.5-14.5) % Plt Count (140-400) K/mcL MPV (9.4-12.4) fL Immature Gran % (0-4) % Seg Neutrophils % % Lymphocytes % % Monocytes % % Eosinophils % % Basophils % % Neutrophils # (1.6-8.9) K/mcL Lymphocytes # (0.6-4.6) K/mcL Monocytes # (0.0-1.3) K/mcL Eosinophils # (0.0-0.6) K/mcL Basophils # (0.0-0.2) K/mcL ESR (0-15) mm/hr Sodium (136-145) mEq/L Potassium (3.5-4.5) mEq/L Chloride (98-109) mEq/L Carbon Dioxide (19-29) mEq/L BUN (7-20) mg/dL Creatinine (0.57-1.11) mg/dL Est GFR ( Amer) (> 60) Est GFR (Non-Af Amer) (> 60) BUN/Creatinine Ratio (6-26) Glucose (70-99) mg/dL Calculated Osmolality (280-300) Calcium (8.6-10.8) mg/dL Total Bilirubin (0.2-1.2) mg/dL AST (5-34) Units/L ALT (0-55) Units/L Alkaline Phosphatase (38-126) Units/L C-Reactive Protein 59 H (Less than 5) mg/L Serum Total Protein (6.0-8.3) g/dL Albumin (3.5-5.0) g/dL Globulin (2.4-3.5) g/dL Albumin/Globulin Ratio (1.1-2.2)
[2017-05-13] MEDS: *HR* OxyCODONE Immed Rel 5 MG TABLET PO PRN (19:14)
--- NOTE | 2017-05-13 19:41 | Orthopedic Consult Note ---
Date of Encounter: 05/13/17 Time of Encounter: 17:00 Assessment and Plan (1) Cat bite of right wrist Current Visit: Yes Status: Acute I did discuss the diagnosis in great detail with the patient. She has right wrist dorsal Bite cellulitis. No concern for septic arthritis of the wrist or flexor tenosynovium Vitas of the digits. No concern for underlying abscess. My recommendation at this point is for IV antibiotics and careful clinical observation. I do recommend aggressive elevation as well as an oral or IV anti- inflammatory medication to reduce inflammation and help with symptoms. The patient is aware of the risk of needing operative incision and drainage in the future. I will see the patient in the morning for a clinical reevaluation. Qualifiers: Encounter type: initial encounter Qualified Code(s): S61.551A - Open bite of right wrist, initial encounter; W55.01XA - Bitten by cat, initial encounter History of Present Illness HPI: Ms. Byrne is a 86 year old female who was admitted to the hospitalist for right dorsal wrist cat bite cellulitis. I was asked to assist in the evaluation and management of the patient. The patient indicates that she was feeding her On Friday while eating yogurt. Some of the overdid spill onto the right dorsal wrist area and the cat did bite the patient in this area. The patient did go to an urgent care and was placed on Augmentin however due to continued swelling and pain she came to the emergency department today and was subsequently admitted for IV antibiotics. She did have an allergic reaction to Zosyn. The infectious disease doctors were consulted and the patient was started on Rocephin and Flagyl. The patient indicates that since admission she has begun to feel better. She has moderate pain to the dorsal radial aspect of the right wrist. 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 She reports no feelings of illness, fevers, or night sweats. She denies chills. There is no other associated signs or symptoms. She denies numbness and tingling. The pain is worse with movement and better at rest. No other modifying factors. Past Med Surg Social Fam HX - Past Medical History Medical history: atrial fibrillation, CHF, COPD, hypertension, renal disease Psychiatric history: anxiety, depression - Past Surgical History Surgical History: herniorrhaphy, hysterectomy, orthopedic, other - Social History Smoking Status: Never smoker Smokeless Tobacco Status: No Alcohol use: none Drug use: none - Family History Mother Living Status: Hx Family Cancer: Yes (Leukemia) Father Living Status: Hx Family Cancer: Yes (stomach) Medications and Allergies Cholecalciferol (D-3) [Vitamin D] 1,000 unit PO DAILY 12/25/16 [History] Citalopram [CeleXA] 20 mg PO DAILY 12/25/16 [History] Cyanocobalamin (Vitamin B-12) [Vitamin B-12] 500 mcg PO DAILY 12/25/16 [History] Metoprolol XL (24 HR) Succ [Toprol Xl] 25 mg PO DAILY 12/25/16 [History] hydrALAZINE [HydrALAZINE] 25 mg PO BID 12/25/16 [History] Ascorbate Calcium [Vitamin C] 500 mg PO BID #60 tablet 01/18/17 [Rx] Aspirin [Lo-Dose Aspirin EC] 81 mg PO DAILY #30 tablet. 01/18/17 [Rx] Calcium/Vit B12/FA/Pyridoxine [Folic Acid-Vit B6-Vit B12 Tab] 1 each PO DAILY # 30 tablet 01/18/17 [Rx] Ferrous Sulfate [Iron] 325 mg PO BID #60 tablet 01/18/17 [Rx] Furosemide [Lasix] 20 mg PO DAILY #30 tablet 01/18/17 [Rx] Pantoprazole Sodium [Protonix] 20 mg PO DAILY #30 tab 01/18/17 [Rx] Amoxicillin/Clavulanate [Augmentin] 875 mg PO BID #20 tablet 05/10/17 [Rx] Hydrochlorothiazide [Microzide] 12.5 mg PO DAILY 05/13/17 [History] Losartan Potassium [Cozaar] 50 mg PO DAILY 05/13/17 [History] Oxycodone HCl/Acetaminophen [Percocet 5-325 mg Tablet] 1 tab PO BID PRN [History] Allergies meperidine [From Demerol] Allergy (Verified 05/13/17 09:29) Hives piperacillin [From Zosyn] Allergy (Verified 05/13/17 11:07) Itching tazobactam [From Zosyn] Allergy (Verified 05/13/17 11:07) Itching iodine Adverse Reaction (Verified 05/13/17 09:29) Nausea All Systems Reviewed: Constitutional and musculoskeletal systems were reviewed and are negative unless otherwise stated in history of present illness. Physical Exam - Constitutional Vitals: Temp Pulse Resp BP Pulse Ox 98.5 F 57 12 135/53 95 05/13/17 19:06 05/13/17 19:06 05/13/17 19:06 05/13/17 19:06 05/13/17 19:06 CONSTITUTIONAL -Vitals reviewed -The patient is well developed, well nourished, well groomed PSYCHIATRIC -Fully alert and oriented x 3 -Pleasant mood RIGHT UPPER EXTREMITY -Inspection shows a patch of dorsal and radial wrist cellulitis associated with 4 puncture wounds to the area. There is a moderate amount of swelling and edema without any associated fluctuance or induration. There is tenderness to palpation in this area. No tenderness in the hand or proximal forearm region with the exception of over her small finger joints which predates the infection. There is no drainage or gross purulence. She is able to grossly flex and extend the digits without any significant pain. I can gently passively flex and extend the wrist without issue. The patient can actively flex and extend all digits, extend the thumb, cross the index and long fingers, make an okay sign, and oppose the thumb. The fingertips are all grossly sensate and well-perfused, and the radial artery pulses 2+. No red streaks going up the forearm. 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 No retained foreign bodies. Results - Labs Result Diagrams: 05/13/17 09:57 05/13/17 09:57 Labs: Abnormal lab results Hgb 11.3 g/dL (11.5-15.4) L 05/13/17 09:57 MCHC 31.4 g/dL (31.6-35.5) L 05/13/17 09:57 RDW 16.6 % (11.5-14.5) H 05/13/17 09:57 ESR 53 mm/hr (0-15) H 05/13/17 14:14 BUN 35 mg/dL (7-20) H 05/13/17 09:57 Creatinine 1.52 mg/dL (0.57-1.11) H 05/13/17 09:57 Est GFR ( Amer) 39 (> 60) L 05/13/17 09:57 Est GFR (Non-Af Amer) 32 (> 60) L 05/13/17 09:57 C-Reactive Protein 50 mg/L (Less than 5) H 05/13/17 14:14 Globulin 4.0 g/dL (2.4-3.5) H 05/13/17 09:57 Albumin/Globulin Ratio 0.9 (1.1-2.2) L 05/13/17 09:57 All other labs normal. Consult Discharge Plan - Plan Referrals: Prisca Weber, NURSING DIRECTOR [Primary Care Provider] -
[2017-05-14] MEDS: *HR* OxyCODONE Immed Rel 5 MG TABLET PO PRN (05:37)
[2017-05-14 06:12] LABS: Basophils % 0.3 %; Eosinophils % 0.5 %; Hemoglobin 9.7 g/dL (11.5-15.4); Immature Granulocytes % 0.3 % (0-4); Lymphocytes # 1.4 K/mcL (0.6-4.6); Lymphocytes % 21.8 %; Mean Corpuscular HGB Conc 32.3 g/dL (31.6-35.5); Mean Corpuscular Hemoglobin 30.1 pg (28.0-33.3); Mean Corpuscular Volume 93.2 fL (83.0-100.0); Mean Platelet Volume 11.7 fL (9.4-12.4); Monocytes # 0.9 K/mcL (0.0-1.3); Monocytes % 13.8 %; Neutrophils # 4.1 K/mcL (1.6-8.9); Platelet Count 138 K/mcL (140-400); Red Blood Count 3.22 M/mcL (3.82-4.97); Red Cell Distribution Width 16.6 % (11.5-14.5); Segmented Neutrophils % 63.3 %
[2017-05-14 06:28] LABS: Calcium 8.7 mg/dL (8.6-10.8); Potassium 4.7 mEq/L (3.5-4.5)
--- NOTE | 2017-05-14 07:08 | Orthopedics Progress Note ---
Date of Encounter: 05/14/17 Time of Encounter: 07:06 - Assessment and Plan (1) Cat bite of right wrist Current Visit: Yes Status: Acute Qualifiers: Encounter type: initial encounter Qualified Code(s): S61.551A - Open bite of right wrist, initial encounter; W55.01XA - Bitten by cat, initial encounter Subjective Interval history: S: Improved pain to the right dorsal/radial wrist region. No new complaints. O: Afebrile/VSS Right wrist area erythema has improved. Tenderness noted. No induration or fluctuance. She can grossly flex and exstend the wrist and digits. NV intact A: Catbite cellulitis P: Continue Abx per the primary team. No plans for surgical intervention. Elevation. She may benefit from an oral or IV NSAID. Will follow clinically. Objective Vital signs: Vital Signs Temp Pulse Resp BP Pulse Ox 05/14/17 03:36 98.5 F 57 12 137/54 93 05/13/17 23:23 98.0 F 56 18 147/56 95 05/13/17 19:06 98.5 F 57 12 135/53 95 05/13/17 19:00 95 05/13/17 16:19 98.1 F 51 16 132/52 95 Intake and Output 05/13/17 05/13/17 05/14/17 15:59 23:59 07:59 Intake Total 100 / 100 300 / 300 Balance 100 / 100 300 / 300 Intake: IV Fluids 100 / 100 300 / 300 Flagyl Premix 500 MG/100 100 / 100 100 / 100 ML 500 mg In 100 ml @ 100 mls/hr IVPB Q8HR [facility] Rx# :[id number] Rocephin 1,000 MG In 100 / 100 Dextrose 5% (Minibag+) 100 ML 100 ML @ 200 mls/ hr IVPB Q24H [facility] Rx#: [id number] Other: Weight 51.075 kg Patient Weight 05/14/17 23:59 Weight 51.075 kg - Labs CBC & BMP: 05/14/17 05:42 05/14/17 05:42 Labs: Abnormal lab results RBC 3.22 M/mcL (3.82-4.97) L 05/14/17 05:42 Hgb 9.7 g/dL (11.5-15.4) L D 05/14/17 05:42 Hct 30.0 % (35.3-44.9) L 05/14/17 05:42 RDW 16.6 % (11.5-14.5) H 05/14/17 05:42 Plt Count 138 K/mcL (140-400) L 05/14/17 05:42 ESR 53 mm/hr (0-15) H 05/13/17 14:14 Potassium 4.7 mEq/L (3.5-4.5) H 05/14/17 05:42 BUN 31 mg/dL (7-20) H 05/14/17 05:42 Creatinine 1.38 mg/dL (0.57-1.11) H 05/14/17 05:42 Est GFR ( Amer) 44 (> 60) L 05/14/17 05:42 Est GFR (Non-Af Amer) 36 (> 60) L 05/14/17 05:42 C-Reactive Protein 50 mg/L (Less than 5) H 05/13/17 14:14 Globulin 4.0 g/dL (2.4-3.5) H 05/13/17 09:57 Albumin/Globulin Ratio 0.9 (1.1-2.2) L 05/13/17 09:57 Consult Discharge Plan - Plan Referrals: Prisca Weber, JESSE [Primary Care Provider] -
[2017-05-14] MEDS: MetroNIDAZOLE 500 MG/100 ML 500 MG/100 ML BAG IVPB SCH ×2 (08:25→16:38)
[2017-05-14] MEDS: Aspirin Enteric Coated 81 MG Tablet PO SCH (08:26)
[2017-05-14] MEDS: Metoprolol XL (24 HR) Succ 25 MG TAB.ER.24H PO SCH (08:26)
[2017-05-14] MEDS: hydroCHLOROthiazide 25 MG TABLET PO SCH (08:26)
[2017-05-14] MEDS: Ascorbic Acid 500 MG TABLET PO SCH ×2 (08:27→20:39)
--- NOTE | 2017-05-14 10:53 | Infectious Disease Progress No ---
Date of Encounter: 05/14/17 Time of Encounter: 10:51 - Assessment and Plan (1) Cellulitis Current Visit: Yes Status: Acute Location: Right hand, wrist, and forearm. Causative organism unclear. Clinically improved this morning. Secondary to cat bite sustained 05/10/17. Failed outpatient oral antibiotic therapy (Augmentin). X-ray of the right hand shows soft tissue swelling without osseous abnormalities. Ortho has been consulted. Consult note reviewed. No surgical intervention required at this time. ESR 53, CRP 50. Received Zosyn in the ER that resulted in diffuse itching, but no rash or hives. Continue Rocephin 1 gram IV daily. Continue flagyl 500mg Q8H, but switch to PO as the oral formulation has excellent bioavailability. Duration of treatment depends on the clinical picture. Will likely be able to transition to PO antibiotics when ready for discharge. Qualifiers: Site of cellulitis: extremity Site of cellulitis of extremity: upper extremity Laterality: right Qualified Code(s): L03.113 - Cellulitis of right upper limb (2) Cat bite of right wrist Current Visit: Yes Status: Acute Location: Right wrist. Patient states that cat was hers, but is not up-to-date on his vaccinations. Received Tdap at Urgent Care on Friday. Qualifiers: Encounter type: initial encounter Qualified Code(s): S61.551A - Open bite of right wrist, initial encounter; W55.01XA - Bitten by cat, initial encounter (3) CKD (chronic kidney disease) stage 3, GFR 30-59 ml/min Current Visit: Yes Status: Chronic Serum creatinine elevated at 1.52 on arrival, but appears close to baseline. Improved today. Monitor closely and dose-adjust medications as appropriate. Rocephin does not require dose-adjustment for decreased CrCl. (4) HTN (hypertension) Current Visit: No Status: Chronic Qualifiers: Hypertension type: unspecified Qualified Code(s): I10 - Essential (primary ) hypertension - Subjective Interval history: He should seen and examined. No acute events noted overnight. Patient states that overall she feels better today. She denies any fevers or chills or rigors. She denies any headache or neck pain. She denies any chest pain, shortness of breath, or cough. She denies any nausea, vomiting, diarrhea, constipation. She states that she has a better appetite and she was able to eat breakfast this morning. She denies any abdominal pain or urinary complaints. She states the pain in her right wrist, forearm, and hand is improved today. She denies any oral thrush or new skin lesions. Infect Dis PN-Objective Data - Labs CBC & Chem 7: 05/14/17 05:42 05/14/17 05:42 Labs: Laboratory Results - last 24 hr 05/13/17 05/13/17 05/14/17 14:14 14:14 05:42 WBC 6.5 RBC 3.22 L Hgb 9.7 L D Hct 30.0 L MCV 93.2 MCH 30.1 MCHC 32.3 RDW 16.6 H Plt Count 138 L MPV 11.7 Immature Gran % 0.3 Seg Neutrophils % 63.3 Lymphocytes % 21.8 Monocytes % 13.8 Eosinophils % 0.5 Basophils % 0.3 Neutrophils # 4.1 Lymphocytes # 1.4 Monocytes # 0.9 Eosinophils # 0.0 Basophils # 0.0 ESR 53 H Sodium Potassium Chloride Carbon Dioxide BUN Creatinine Est GFR ( Amer) Est GFR (Non-Af Amer) BUN/Creatinine Ratio Glucose Calculated Osmolality Calcium C-Reactive Protein 50 H 05/14/17 05:42 WBC RBC Hgb Hct MCV MCH MCHC RDW Plt Count MPV Immature Gran % Seg Neutrophils % Lymphocytes % Monocytes % Eosinophils % Basophils % Neutrophils # Lymphocytes # Monocytes # Eosinophils # Basophils # ESR Sodium 137 Potassium 4.7 H Chloride 107 Carbon Dioxide 24 BUN 31 H Creatinine 1.38 H Est GFR ( Amer) 44 L Est GFR (Non-Af Amer) 36 L BUN/Creatinine Ratio 22 Glucose 98 Calculated Osmolality 291 Calcium 8.7 C-Reactive Protein Exam - Constitutional Vitals: Temp Pulse Resp BP Pulse Ox 97.9 F 57 16 141/52 92 05/14/17 07:09 05/14/17 07:09 05/14/17 07:09 05/14/17 07:09 05/14/17 07:09 General appearance: average body habitus, cooperative, no acute distress - Head Head exam: Present: atraumatic, normal inspection, normocephalic - Eye Eye exam: Present: EOMI, PERRL Pupils: Present: normal accommodation, PERRL - ENT ENT exam: Present: mucous membranes moist - Neck Neck exam: Present: normal inspection - Respiratory Respiratory exam: Present: CTAB. Absent: rales, respiratory distress, rhonchi, wheezes - Cardiovascular Cardiovascular exam: Present: irregular rhythm. Absent: tachycardia - GI/Abdominal GI/Abdominal exam: Present: normal bowel sounds, soft. Absent: firm, tenderness - Extremities Exam Extremities exam: Present: tenderness (right hand,wrist,forearm). Absent: normal inspection, pedal edema Additional comments: Erythema and edema to the right hand, wrist, and forearm markedly improved overnight. Mild tenderness remains in the right wrist and forearm. ROM improved. Scabbed lesions x 2 noted to the right wrist without drainage. - Neurological Exam Neurological exam: Present: alert, oriented X3, no focal deficits - Psychiatric Psychiatric exam: Present: normal affect, normal mood - Skin Skin exam: Present: dry, intact, normal color, warm Consult Discharge Plan - Plan Referrals: Prisca Weber CNP [Primary Care Provider] - 05/20/17 1:00 pm - Attending Attestation I examined this patient and my medical decision-making was reviewed with the BOOM OPERATOR/PA/Advanced Practice Nurse/Resident Physician. I agree with the documented findings, disposition and treatment plan as described except to the extent set forth below.
--- NOTE | 2017-05-14 19:27 | Internal Med Progress Note ---
Date of Encounter: 05/14/17 Time of Encounter: 11:00 - Assessment and plan (1) Cat bite of right wrist Current Visit: Yes Status: Acute Assessment and plan: Patient sustained a cat bite on May 10. She failed outpatient oral antibiotic therapy with Augmentin. X-ray of the right hand shows soft tissue swelling, no osseous involvement. Appreciate orthopedic and infectious disease input. ESR 53. CRP 50. Patient received Zosyn in the ER which caused diffuse itching, no rash. Clinically slowly improving. Continue ceftriaxone and Flagyl. Qualifiers: Encounter type: initial encounter Qualified Code(s): S61.551A - Open bite of right wrist, initial encounter; W55.01XA - Bitten by cat, initial encounter (2) Cellulitis Current Visit: Yes Status: Acute Assessment and plan: Plan as above. Qualifiers: Site of cellulitis: extremity Site of cellulitis of extremity: upper extremity Laterality: right Qualified Code(s): L03.113 - Cellulitis of right upper limb (3) CKD (chronic kidney disease) stage 3, GFR 30-59 ml/min Current Visit: Yes Status: Chronic Assessment and plan: At baseline. close monitor. (4) HTN (hypertension) Current Visit: No Status: Chronic Assessment and plan: Controlled. Continue home medications. Qualifiers: Hypertension type: unspecified Qualified Code(s): I10 - Essential (primary ) hypertension (5) Diastolic heart failure Current Visit: No Status: Chronic Assessment and plan: Compensated. Not in exacerbation. Qualifiers: Heart failure chronicity: chronic Qualified Code(s): I50.32 - Chronic diastolic (congestive) heart failure - Subjective Interval history: Patient reports her swelling and pain on her right hand is much better today. She has good oral intake. - Constitutional Vitals: Temp Pulse Resp BP Pulse Ox 98.0 F 63 15 186/65 96 05/14/17 18:53 05/14/17 18:53 05/14/17 18:53 05/14/17 18:53 05/14/17 18:53 General appearance: Present: cooperative, A&O X 3 (Appears tired and weak), pleasant, no acute distress, answers questions appropriately - Neck Neck exam general surgery: Present: supple, trachea midline. Absent: lymphadenopathy - Respiratory Respiratory exam: Present: CTAB - Cardiovascular Cardiovascular exam: Present: RRR - GI/Abdominal GI/Abdominal exam: Present: normal bowel sounds, soft. Absent: distended, tenderness - Extremities Exam Additional comments: Right hand, wrist and forearm: there are bite kumar on the dorsal are of her wrist with minimal swelling, fading erythema and mild tenderness. No purulent discharge. Range of motion is limited due to pain. Patient has severe joint deformities due to osteoarthritis. - Back Exam Back exam: Absent: CVA tenderness (L), CVA tenderness (R) - Neurological Exam Neurological exam: Present: alert, oriented X3, no focal deficits, strengths equal and symetr throughout. Absent: facial droop, speech deficit - Skin Skin exam: Absent: intact Internal Medicine: Result - Labs CBC & Chem 7: 05/14/17 05:42 05/14/17 05:42 Labs: Short CBC 05/14/17 Range/Units 05:42 WBC 6.5 (4.3-11.1) K/mcL Hgb 9.7 L D (11.5-15.4) g/dL Hct 30.0 L (35.3-44.9) % Plt Count 138 L (140-400) K/mcL Neutrophils # 4.1 (1.6-8.9) K/mcL BMP 05/14/17 05:42 Sodium 137 Potassium 4.7 H Chloride 107 Carbon Dioxide 24 BUN 31 H Creatinine 1.38 H Glucose 98 Calcium 8.7 Consult Discharge Plan - Plan Referrals: Prisca Weber CNP [Primary Care Provider] - 05/20/17 1:00 pm
[2017-05-15] MEDS: MetroNIDAZOLE 500 MG/100 ML 500 MG/100 ML BAG IVPB SCH ×4 (00:18→23:33)
[2017-05-15] MEDS: *HR* OxyCODONE Immed Rel 5 MG TABLET PO PRN ×2 (04:30→23:33)
[2017-05-15 06:52] LABS: Basophils % 0.1 %; Eosinophils # 0.1 K/mcL (0.0-0.6); Hematocrit 29.3 % (35.3-44.9); Hemoglobin 9.2 g/dL (11.5-15.4); Immature Granulocytes % 0.4 % (0-4); Lymphocytes # 1.2 K/mcL (0.6-4.6); Lymphocytes % 16.9 %; Mean Corpuscular HGB Conc 31.4 g/dL (31.6-35.5); Mean Corpuscular Hemoglobin 29.9 pg (28.0-33.3); Mean Corpuscular Volume 95.1 fL (83.0-100.0); Mean Platelet Volume 11.8 fL (9.4-12.4); Monocytes # 0.9 K/mcL (0.0-1.3); Monocytes % 12.5 %; Platelet Count 136 K/mcL (140-400); Red Blood Count 3.08 M/mcL (3.82-4.97); Red Cell Distribution Width 16.3 % (11.5-14.5); Segmented Neutrophils % 69.1 %
[2017-05-15 06:55] LABS: Calcium 8.8 mg/dL (8.6-10.8); Magnesium 1.7 mg/dL (1.6-2.6); Potassium 4.3 mEq/L (3.5-4.5)
--- NOTE | 2017-05-15 08:11 | Orthopedics Progress Note ---
Date of Encounter: 05/15/17 Time of Encounter: 08:09 - Assessment and Plan (1) Cat bite of right wrist Current Visit: Yes Status: Acute Qualifiers: Encounter type: initial encounter Qualified Code(s): S61.551A - Open bite of right wrist, initial encounter; W55.01XA - Bitten by cat, initial encounter Subjective Interval history: S: Continues to improve regarding the right wrist. No new complaints. O: Afebrile/VSS Right wrist area erythema has improved. Tenderness noted. No induration or fluctuance. She can grossly flex and exstend the wrist and digits. NV intact A: Catbite cellulitis, improving with nonoperative management P: Continue Abx per the primary team. No plans for surgical intervention. Anticipate switch to oral antibiotics soon. Anti-inflammatory per the primary team Elevation. Will follow clinically. Objective Vital signs: Vital Signs Temp Pulse Resp BP Pulse Ox 05/15/17 06:37 98.2 F 59 16 166/64 95 05/14/17 19:45 96 05/14/17 18:53 98.0 F 63 15 186/65 96 05/14/17 15:34 98.5 F 54 13 145/51 92 05/14/17 11:06 97.9 F 53 16 167/67 Intake and Output 05/14/17 05/15/17 05/15/17 23:59 07:59 15:59 Intake Total 100 / 100 Output Total 400 / 400 Balance -300 / -300 Intake: IV Fluids 100 / 100 Flagyl Premix 500 MG/100 100 / 100 ML 500 mg In 100 ml @ 100 mls/hr IVPB Q8HR [facility] Rx# :[id number] Output: Urine 400 / 400 Other: # Voids 1 - Labs CBC & BMP: 05/15/17 05:49 05/15/17 05:49 Labs: Abnormal lab results RBC 3.08 M/mcL (3.82-4.97) L 05/15/17 05:49 Hgb 9.2 g/dL (11.5-15.4) L 05/15/17 05:49 Hct 29.3 % (35.3-44.9) L 05/15/17 05:49 MCHC 31.4 g/dL (31.6-35.5) L 05/15/17 05:49 RDW 16.3 % (11.5-14.5) H 05/15/17 05:49 Plt Count 136 K/mcL (140-400) L 05/15/17 05:49 ESR 53 mm/hr (0-15) H 05/13/17 14:14 BUN 29 mg/dL (7-20) H 05/15/17 05:49 Creatinine 1.28 mg/dL (0.57-1.11) H 05/15/17 05:49 Est GFR ( Amer) 48 (> 60) L 05/15/17 05:49 Est GFR (Non-Af Amer) 40 (> 60) L 05/15/17 05:49 Glucose 101 mg/dL (70-99) H 05/15/17 05:49 C-Reactive Protein 50 mg/L (Less than 5) H 05/13/17 14:14 Globulin 4.0 g/dL (2.4-3.5) H 05/13/17 09:57 Albumin/Globulin Ratio 0.9 (1.1-2.2) L 05/13/17 09:57 Consult Discharge Plan - Plan Referrals: Prisca Weber, JESSE [Primary Care Provider] - 05/20/17 1:00 pm
[2017-05-15] MEDS: hydroCHLOROthiazide 25 MG TABLET PO SCH (08:33)
[2017-05-15] MEDS: Aspirin Enteric Coated 81 MG Tablet PO SCH (08:34)
[2017-05-15] MEDS: Ascorbic Acid 500 MG TABLET PO SCH ×2 (08:34→20:45)
[2017-05-15] MEDS: Metoprolol XL (24 HR) Succ 25 MG TAB.ER.24H PO SCH (08:34)
[2017-05-15] MEDS ORDERED: Colchicine 0.6 MG TABLET PO ONE (10:58)
[2017-05-15] MEDS: hydrALAZINE 25 MG TABLET PO SCH ×2 (11:19→20:45)
--- NOTE | 2017-05-15 13:16 | Infectious Disease Progress No ---
Date of Encounter: 05/15/17 Time of Encounter: 13:14 - Assessment and Plan (1) Cellulitis Current Visit: Yes Status: Acute Location: Right hand, wrist, and forearm. Causative organism unclear. Continues to improve. Secondary to cat bite sustained 05/10/17. Failed outpatient oral antibiotic therapy (Augmentin). X-ray of the right hand shows soft tissue swelling without osseous abnormalities. Ortho has been consulted. Consult note reviewed. No surgical intervention required at this time. ESR 53, CRP 50. Received Zosyn in the ER that resulted in diffuse itching, but no rash or hives. Continue Rocephin 1 gram IV daily. Continue flagyl 500mg Q8H, but switch to PO as the oral formulation has excellent bioavailability. Duration of treatment depends on the clinical picture. Will likely be able to transition to PO antibiotics when ready for discharge. Qualifiers: Site of cellulitis: extremity Site of cellulitis of extremity: upper extremity Laterality: right Qualified Code(s): L03.113 - Cellulitis of right upper limb (2) Cat bite of right wrist Current Visit: Yes Status: Acute Location: Right wrist. Patient states that cat was hers, but is not up-to-date on his vaccinations. Received Tdap at Urgent Care on Friday. Qualifiers: Encounter type: initial encounter Qualified Code(s): S61.551A - Open bite of right wrist, initial encounter; W55.01XA - Bitten by cat, initial encounter (3) CKD (chronic kidney disease) stage 3, GFR 30-59 ml/min Current Visit: Yes Status: Chronic Serum creatinine elevated at 1.52 on arrival, but appears close to baseline. Improved today. Monitor closely and dose-adjust medications as appropriate. Rocephin does not require dose-adjustment for decreased CrCl. (4) HTN (hypertension) Current Visit: No Status: Chronic Qualifiers: Hypertension type: unspecified Qualified Code(s): I10 - Essential (primary ) hypertension - Subjective Interval history: Patient seen and examined. No acute events noted overnight. Patient states that overall she feels better today. She denies any fevers or chills or rigors. She denies any headache or neck pain. She denies any chest pain, shortness of breath , or cough. She denies any nausea, vomiting, diarrhea, constipation. She states she was able to eat breakfast this morning. She denies any abdominal pain or urinary complaints. She states the pain in her right wrist, forearm, and hand is improved today, but not much since yesterday. She denies any oral thrush or new skin lesions. Infect Dis PN-Objective Data - Labs CBC & Chem 7: 05/15/17 05:49 05/15/17 05:49 Labs: Laboratory Results - last 24 hr 05/15/17 05/15/17 05:49 05:49 WBC 7.2 RBC 3.08 L Hgb 9.2 L Hct 29.3 L MCV 95.1 MCH 29.9 MCHC 31.4 L RDW 16.3 H Plt Count 136 L MPV 11.8 Immature Gran % 0.4 Seg Neutrophils % 69.1 Lymphocytes % 16.9 Monocytes % 12.5 Eosinophils % 1.0 Basophils % 0.1 Neutrophils # 5.0 Lymphocytes # 1.2 Monocytes # 0.9 Eosinophils # 0.1 Basophils # 0.0 Sodium 137 Potassium 4.3 Chloride 107 Carbon Dioxide 24 BUN 29 H Creatinine 1.28 H Est GFR ( Amer) 48 L Est GFR (Non-Af Amer) 40 L BUN/Creatinine Ratio 23 Glucose 101 H Calculated Osmolality 290 Calcium 8.8 Magnesium 1.7 Cultures: Cultures 05/13/17 14:14 Blood Culture - Preliminary Peripheral Venipuncture No growth. Exam - Constitutional Vitals: Temp Pulse Resp BP Pulse Ox 98 F 56 20 185/65 97 05/15/17 10:38 05/15/17 10:38 05/15/17 10:38 05/15/17 10:38 05/15/17 10:38 General appearance: average body habitus, cooperative, no acute distress - Head Head exam: Present: atraumatic, normal inspection, normocephalic - Eye Eye exam: Present: EOMI, normal appearance, PERRL Pupils: Present: normal accommodation - ENT ENT exam: Present: mucous membranes moist - Neck Neck exam: Present: normal inspection - Respiratory Respiratory exam: Present: CTAB. Absent: rales, respiratory distress, rhonchi, wheezes - Cardiovascular Cardiovascular exam: Present: RRR, +S1, +S2 - GI/Abdominal GI/Abdominal exam: Present: normal bowel sounds, soft. Absent: distended, tenderness - Extremities Exam Extremities exam: Present: joint swelling (right wrist ), tenderness (right wrist and hand). Absent: pedal edema Additional comments: Erythema to the right hand, wrist, and forearm continues to improve. Mild warmth noted. Edema continues to improve. No tenderness noted with palpation of the forearm and elbow ROM WNL. ROM to the right wrist and hand improved, but still limited due to pain. - Neurological Exam Neurological exam: Present: alert, oriented X3, no focal deficits - Psychiatric Psychiatric exam: Present: normal affect, normal mood - Skin Skin exam: Present: dry, intact, normal color, warm Consult Discharge Plan - Plan Referrals: Prisca Weber CNP [Primary Care Provider] - 05/20/17 1:00 pm
[2017-05-15] MEDS: Colchicine 0.6 MG TABLET PO SCH (15:33)
--- NOTE | 2017-05-15 16:50 | Internal Med Progress Note ---
Date of Encounter: 05/15/17 Time of Encounter: 11:45 - Assessment and plan (1) Cat bite of right wrist Current Visit: Yes Status: Acute Assessment and plan: Patient sustained a cat bite on May 10. She failed outpatient oral antibiotic therapy with Augmentin. X-ray of the right hand shows soft tissue swelling, no osseous involvement. Appreciate orthopedic and infectious disease input. ESR 53. CRP 50. Patient received Zosyn in the ER which caused diffuse itching, no rash. Clinically improving slowly. Continue ceftriaxone and Flagyl. consult PT/OT Qualifiers: Encounter type: initial encounter Qualified Code(s): S61.551A - Open bite of right wrist, initial encounter; W55.01XA - Bitten by cat, initial encounter (2) Cellulitis Current Visit: Yes Status: Acute Assessment and plan: Plan as above. Qualifiers: Site of cellulitis: extremity Site of cellulitis of extremity: upper extremity Laterality: right Qualified Code(s): L03.113 - Cellulitis of right upper limb (3) Right foot pain Current Visit: Yes Status: Acute Assessment and plan: Patient with history of gout. Due to CKD, I will start colchicine. cehck uric acid in AM. X-ray of foot showed decreased bone mineral density with normal alignment and no acute osseous abnormality. Degenerative changes due to osteoarthritis. (4) CKD (chronic kidney disease) stage 3, GFR 30-59 ml/min Current Visit: Yes Status: Chronic Assessment and plan: At baseline. close monitor. (5) HTN (hypertension) Current Visit: No Status: Chronic Assessment and plan: Controlled. Continue home medications. Qualifiers: Hypertension type: unspecified Qualified Code(s): I10 - Essential (primary ) hypertension (6) Diastolic heart failure Current Visit: No Status: Chronic Assessment and plan: Compensated. Not in exacerbation. Qualifiers: Heart failure chronicity: chronic Qualified Code(s): I50.32 - Chronic diastolic (congestive) heart failure - Subjective Interval history: Patient complains of severe right foot pain. - Constitutional Vitals: Temp Pulse Resp BP Pulse Ox 98.5 F 56 16 145/55 97 05/15/17 15:06 05/15/17 15:06 05/15/17 15:06 05/15/17 15:06 05/15/17 15:06 General appearance: Present: cooperative, A&O X 3 (Appears tired and weak), pleasant, no acute distress, answers questions appropriately - Neck Neck exam general surgery: Present: supple, trachea midline. Absent: lymphadenopathy - Respiratory Respiratory exam: Present: CTAB. Absent: wheezes - Cardiovascular Cardiovascular exam: Absent: RRR - GI/Abdominal GI/Abdominal exam: Present: normal bowel sounds, soft. Absent: distended, tenderness - Extremities Exam Extremities exam: Absent: pedal edema Additional comments: Right hand, wrist and forearm: there are bite kumar on the dorsal are of her wrist with minimal swelling, fading erythema and mild tenderness. No purulent discharge. Range of motion is limited due to pain. Patient has severe joint deformities due to osteoarthritis. Right foot: OA deformities. severe tenderness on midplantar area. - Back Exam Back exam: Absent: CVA tenderness (L), CVA tenderness (R) - Neurological Exam Neurological exam: Present: alert, oriented X3, no focal deficits, strengths equal and symetr throughout. Absent: facial droop, speech deficit - Skin Skin exam: Absent: rash Internal Medicine: Result - Labs CBC & Chem 7: 05/15/17 05:49 05/15/17 05:49 Labs: Short CBC 05/15/17 Range/Units 05:49 WBC 7.2 (4.3-11.1) K/mcL Hgb 9.2 L (11.5-15.4) g/dL Hct 29.3 L (35.3-44.9) % Plt Count 136 L (140-400) K/mcL Neutrophils # 5.0 (1.6-8.9) K/mcL BMP 05/15/17 05:49 Sodium 137 Potassium 4.3 Chloride 107 Carbon Dioxide 24 BUN 29 H Creatinine 1.28 H Glucose 101 H Calcium 8.8 - Impressions Impressions Foot X-Ray 05/15/17 10:56 IMPRESSION: 1. Decreased bone mineral density with normal alignment and no acute osseous abnormality. 2. 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 D/ / 05/15/2017 15:01:39 Juan F Simpson MD / clara Interpreting Provider: Juan F Simpson MD Consult Discharge Plan - Plan Referrals: Prisca Weber CNP [Primary Care Provider] - 05/20/17 1:00 pm
[2017-05-16 06:04] LABS: Basophils % 0.3 %; Eosinophils # 0.1 K/mcL (0.0-0.6); Eosinophils % 0.8 %; Hematocrit 28.9 % (35.3-44.9); Hemoglobin 9.2 g/dL (11.5-15.4); Immature Granulocytes % 0.5 % (0-4); Lymphocytes # 1.5 K/mcL (0.6-4.6); Lymphocytes % 23.3 %; Mean Corpuscular HGB Conc 31.8 g/dL (31.6-35.5); Mean Corpuscular Hemoglobin 29.9 pg (28.0-33.3); Mean Corpuscular Volume 93.8 fL (83.0-100.0); Mean Platelet Volume 11.3 fL (9.4-12.4); Monocytes # 0.9 K/mcL (0.0-1.3); Monocytes % 14.2 %; Neutrophils # 3.9 K/mcL (1.6-8.9); Platelet Count 144 K/mcL (140-400); Red Blood Count 3.08 M/mcL (3.82-4.97); Segmented Neutrophils % 60.9 %
[2017-05-16 06:07] LABS: Albumin 2.8 g/dL (3.5-5.0); Albumin/Globulin Ratio 0.9 (1.1-2.2); Bilirubin,Direct 0.2 mg/dL (0.0-0.5); Bilirubin,Indirect 0.3 mg/dL (0.0-1.2); Bilirubin,Total 0.5 mg/dL (0.2-1.2); Calcium 8.8 mg/dL (8.6-10.8); Globulin 3.2 g/dL (2.4-3.5); Magnesium 1.7 mg/dL (1.6-2.6); Potassium 4.4 mEq/L (3.5-4.5); Uric Acid 8.2 mg/dL (2.6-6.0)
[2017-05-16 07:31] VITALS: BP 144/66
[2017-05-16] MEDS: Ascorbic Acid 500 MG TABLET PO SCH (08:08)
[2017-05-16] MEDS: Aspirin Enteric Coated 81 MG Tablet PO SCH (08:08)
[2017-05-16] MEDS: Metoprolol XL (24 HR) Succ 25 MG TAB.ER.24H PO SCH (08:08)
[2017-05-16] MEDS: Colchicine 0.6 MG TABLET PO SCH (08:08)
[2017-05-16] MEDS: MetroNIDAZOLE 500 MG/100 ML 500 MG/100 ML BAG IVPB SCH (08:08)
[2017-05-16] MEDS: hydrALAZINE 25 MG TABLET PO SCH (08:08)
--- NOTE | 2017-05-16 09:49 | Discharge Summary ---
Date of Encounter: 05/16/17 Time of Encounter: 09:47 - Discharge Diagnosis (1) Cat bite of right wrist Priority: Primary Status: Acute Qualifiers: Encounter type: initial encounter Qualified Code(s): S61.551A - Open bite of right wrist, initial encounter; W55.01XA - Bitten by cat, initial encounter (2) Cellulitis Priority: Primary Status: Acute Qualifiers: Site of cellulitis: extremity Site of cellulitis of extremity: upper extremity Laterality: right Qualified Code(s): L03.113 - Cellulitis of right upper limb (3) Right foot pain Priority: Primary Status: Resolved (4) CKD (chronic kidney disease) stage 3, GFR 30-59 ml/min Priority: Secondary Status: Chronic (5) HTN (hypertension) Priority: Secondary Status: Chronic Qualifiers: Hypertension type: unspecified Qualified Code(s): I10 - Essential (primary ) hypertension (6) Diastolic heart failure Priority: Secondary Status: Chronic Qualifiers: Heart failure chronicity: chronic Qualified Code(s): I50.32 - Chronic diastolic (congestive) heart failure - Discharge Medications Prescriptions: Amoxicillin/Clavulanate [Augmentin] 875 mg PO BID #14 tablet Colchicine [Colcrys] 0.6 mg PO DAILY #3 tab Home Medications: Cholecalciferol (D-3) [Vitamin D] 1,000 unit PO DAILY 12/25/16 [History] Citalopram [CeleXA] 20 mg PO DAILY 12/25/16 [History] Cyanocobalamin (Vitamin B-12) [Vitamin B-12] 500 mcg PO DAILY 12/25/16 [History] Metoprolol XL (24 HR) Succ [Toprol Xl] 25 mg PO DAILY 12/25/16 [History] hydrALAZINE [HydrALAZINE] 25 mg PO BID 12/25/16 [History] Ascorbate Calcium [Vitamin C] 500 mg PO BID #60 tablet 01/18/17 [Rx] Aspirin [Lo-Dose Aspirin EC] 81 mg PO DAILY #30 tablet 01/18/17 [Rx] Calcium/Vit B12/FA/Pyridoxine [Folic Acid-Vit B6-Vit B12 Tab] 1 each PO DAILY # 30 tablet 01/18/17 [Rx] Ferrous Sulfate [Iron] 325 mg PO BID #60 tablet 01/18/17 [Rx] Pantoprazole Sodium [Protonix] 20 mg PO DAILY #30 tab 01/18/17 [Rx] Losartan Potassium [Cozaar] 50 mg PO DAILY 05/13/17 [History] Oxycodone HCl/Acetaminophen [Percocet 5-325 mg Tablet] 1 tab PO BID PRN [History] Amoxicillin/Clavulanate [Augmentin] 875 mg PO BID #14 tablet 05/16/17 [Rx] Colchicine [Colcrys] 0.6 mg PO DAILY #3 tab 05/16/17 [Rx] Allergies/Adverse Reactions: Allergies meperidine [From Demerol] Allergy (Verified 05/13/17 09:29) Hives piperacillin [From Zosyn] Allergy (Verified 05/13/17 11:07) Itching tazobactam [From Zosyn] Allergy (Verified 05/13/17 11:07) Itching iodine Adverse Reaction (Verified 05/13/17 09:29) Nausea Date of admission: 05/13/17 13:49 Primary care physician: Prisca Weber CNP Consults: 05/15/17 11:00 Consult to Occupational Therapy [CONS] Routine Comment: Evaluate, develop and implement POC Reason for Consult: right wrist cat bite Consult to Physical Therapy [CONS] Routine Comment: Evaluate, develop and implement POC Reason for Consult: weakness - Patient Status Disposition: Home, Self-Care Condition: Good Functional capacity at discharge: independent ambulation Overall status at discharge: patient is progressing back to baseline - Discharge Instructions Instructions: Amoxicillin/Clavulanate Potassium (By mouth), Colchicine (By mouth), Animal Bite (DC), Cellulitis (DC) Follow Up With: Prisca Weber CNP [Primary Care Provider] - 05/21/17 1:00 pm (3 month f/up June 04, 2017 @ 3:00 pm) - Diet and Activity Activity: resume usual activities as tolerated Diet: low salt diet Interval History: patient feels better this morning. her foot pain is gone and she is ambulating well. her swelling and pain at right wrist continues to improve. Hospital course: Ms. Byrne is a 86 year old female with past medical history of CKD stage III, hypertension, diastolic heart failure and gout. She sustained a cat bite in May 10 and failed outpatient oral antibiotic therapy with Augmentin. X-ray of the right hand shows soft tissue swelling, no osseous involvement. Patient received Zosyn in the ER which caused diffuse itching, no rash. She was switched to ceftriaxone and Flagyl with clinical improvement. She also received Tdap vaccine. Her hospital course was complicated by an episode of severe pain in her right midfoot. Likely related to gout sine it resolved after she started colchicine. Plan: Augmentin for 7 more days. Colchicine for 3 more days. Follow-up with primary care physician next week. - Time Spent with Patient Total time spent providing and/or coordinating discharge services: - Constitutional Vitals: Temp Pulse Resp BP Pulse Ox 98.1 F 61 17 144/66 94 05/16/17 07:28 05/16/17 07:28 05/16/17 07:28 05/16/17 07:28 05/16/17 07:28 General appearance: Present: cooperative, A&O X 3 (Appears tired and weak), pleasant, no acute distress, answers questions appropriately - Eye Eye exam: Present: PERRL, sclera anicteric - Neck Neck exam general surgery: Present: supple, trachea midline. Absent: lymphadenopathy - Respiratory Respiratory exam: Present: CTAB - Cardiovascular Cardiovascular exam: Present: RRR - GI/Abdominal GI/Abdominal exam: Present: normal bowel sounds, soft. Absent: distended, tenderness - Extremities Exam Extremities exam: Absent: pedal edema Additional comments: Right hand, wrist and forearm: there are bite kumar on the dorsal are of her wrist with minimal swelling, no erythema and mild tenderness. No purulent discharge. Range of motion is improved but limited due to pain. Patient has severe joint deformities due to osteoarthritis. Right foot: OA deformities. no tenderness on midplantar area. - Back Exam Back exam: Absent: CVA tenderness (L), CVA tenderness (R) - Neurological Exam Neurological exam: Present: alert, normal gait, oriented X3, no focal deficits, strengths equal and symetr throughout. Absent: facial droop, speech deficit
--- NOTE | 2017-05-16 11:24 | Infectious Disease Progress No ---
Date of Encounter: 05/16/17 Time of Encounter: 10:00 - Assessment and Plan (1) Cellulitis Status: Acute Location: Right hand, wrist, and forearm. Causative organism unclear. Continues to improve. Secondary to cat bite sustained 05/10/17. Failed outpatient oral antibiotic therapy (Augmentin). X-ray of the right hand shows soft tissue swelling without osseous abnormalities. Ortho has been consulted. Consult note reviewed. No surgical intervention required at this time. ESR 53, CRP 50. Received Zosyn in the ER that resulted in diffuse itching, but no rash or hives. Continue Rocephin 1 gram IV daily. Continue flagyl 500mg Q8H, but switch to PO as the oral formulation has excellent bioavailability. Duration of treatment depends on the clinical picture. Will likely be able to transition to PO antibiotics when ready for discharge. Can switch to Augmentin to complete a 14 day course. Treat through 05/24/17. Qualifiers: Site of cellulitis: extremity Site of cellulitis of extremity: upper extremity Laterality: right Qualified Code(s): L03.113 - Cellulitis of right upper limb (2) Cat bite of right wrist Status: Acute Location: Right wrist. Patient states that cat was hers, but is not up-to-date on his vaccinations. Received Tdap at Urgent Care on Friday. Qualifiers: Encounter type: initial encounter Qualified Code(s): S61.551A - Open bite of right wrist, initial encounter; W55.01XA - Bitten by cat, initial encounter (3) CKD (chronic kidney disease) stage 3, GFR 30-59 ml/min Status: Chronic Serum creatinine elevated at 1.52 on arrival, but appears close to baseline. Improved today. Monitor closely and dose-adjust medications as appropriate. Rocephin does not require dose-adjustment for decreased CrCl. (4) HTN (hypertension) Status: Chronic Qualifiers: Hypertension type: unspecified Qualified Code(s): I10 - Essential (primary ) hypertension - Subjective Interval history: Patient seen and examined. No acute events noted overnight. Patient states that overall she feels better today. She denies any fevers or chills or rigors. She denies any headache or neck pain. She denies any chest pain, shortness of breath , or cough. She denies any nausea, vomiting, diarrhea, constipation. She states she was able to eat breakfast this morning, but her appetite is still poor. She denies any abdominal pain or urinary complaints. She states the pain in her right wrist, forearm, and hand is improved today from yesterday. She denies any oral thrush or new skin lesions. Infect Dis PN-Objective Data - Labs CBC & Chem 7: 05/16/17 05:43 05/16/17 05:43 Labs: Laboratory Results - last 24 hr 05/16/17 05/16/17 05:43 05:43 WBC 6.4 RBC 3.08 L Hgb 9.2 L Hct 28.9 L MCV 93.8 MCH 29.9 MCHC 31.8 RDW 16.0 H Plt Count 144 MPV 11.3 Immature Gran % 0.5 Seg Neutrophils % 60.9 Lymphocytes % 23.3 Monocytes % 14.2 Eosinophils % 0.8 Basophils % 0.3 Neutrophils # 3.9 Lymphocytes # 1.5 Monocytes # 0.9 Eosinophils # 0.1 Basophils # 0.0 Sodium 137 Potassium 4.4 Chloride 105 Carbon Dioxide 28 BUN 21 H Creatinine 1.21 H Est GFR ( Amer) 51 L Est GFR (Non-Af Amer) 42 L BUN/Creatinine Ratio 17 Glucose 95 Calculated Osmolality 287 Uric Acid 8.2 H Calcium 8.8 Magnesium 1.7 Total Bilirubin 0.5 Direct Bilirubin 0.2 Indirect Bilirubin 0.3 AST 15 ALT 6 Alkaline Phosphatase 42 Serum Total Protein 6.0 D Albumin 2.8 L D Globulin 3.2 Albumin/Globulin Ratio 0.9 L Cultures: Cultures 05/13/17 14:14 Blood Culture - Preliminary Peripheral Venipuncture No growth. - Impressions Impressions Foot X-Ray 05/15/17 10:56 IMPRESSION: 1. Decreased bone mineral density with normal alignment and no acute osseous abnormality. 2. 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 D/ / 05/15/2017 15:01:39 Juan F Simpson MD / clara Interpreting Provider: Juan F Simpson MD Exam - Constitutional Vitals: Temp Pulse Resp BP Pulse Ox 98.1 F 61 17 144/66 94 05/16/17 07:28 05/16/17 07:28 05/16/17 07:28 05/16/17 07:28 05/16/17 07:28 General appearance: average body habitus, cooperative, no acute distress - Head Head exam: Present: atraumatic, normal inspection, normocephalic - Eye Eye exam: Present: EOMI, normal appearance, PERRL Pupils: Present: normal accommodation - ENT ENT exam: Present: mucous membranes moist - Neck Neck exam: Present: normal inspection - Respiratory Respiratory exam: Present: CTAB. Absent: rales, respiratory distress, rhonchi, wheezes - Cardiovascular Cardiovascular exam: Present: RRR, +S1, +S2 - GI/Abdominal GI/Abdominal exam: Present: normal bowel sounds, soft. Absent: distended, tenderness - Extremities Exam Extremities exam: Present: joint swelling (right wrist), tenderness (right wrist ). Absent: pedal edema Additional comments: Erythema, warmth, and edema improved. ROM improved. Puncture sites remain scabbed over without drainage. - Neurological Exam Neurological exam: Present: alert, oriented X3, no focal deficits - Psychiatric Psychiatric exam: Present: normal affect, normal mood - Skin Skin exam: Present: dry, intact, normal color, warm Consult Discharge Plan - Plan Instructions: Amoxicillin/Clavulanate Potassium (By mouth), Colchicine (By mouth), Animal Bite (DC), Cellulitis (DC) Referrals: Prisca Weber CNP [Primary Care Provider] - 05/21/17 1:00 pm (3 month f/up June 04, 2017 @ 3:00 pm) Prescriptions: Amoxicillin/Clavulanate [Augmentin] 875 mg PO BID #14 tablet Colchicine [Colcrys] 0.6 mg PO DAILY #3 tab
== END 2017-05-16 11:01 | disposition home or self-care (01) | DRG 603 ==
LOC: EMEROO 09:26 → 3BNU 09:26 → SUATTDRO 13:49
PROVIDERS: ADMIT Registered Nurse; ATTEND Internal Medicine